=== PATIENT | male | born 1955 | race Caucasian/White ===

== ENCOUNTER → 2020-01-07 08:38 | Outpatient (BNVA) | payer BC, SELFPAY | PROVIDERS: Family Provider Family Medicine; PCP Family Medicine; Visit Provider Family Medicine | DX: J30.9 Allergic rhinitis, unspecified (principal); K21.9 Gastro-esophageal reflux disease without esophagitis; R53.83 Other fatigue; I10 Essential (primary) hypertension; J30.89 Other allergic rhinitis; G47.10 Hypersomnia, unspecified | CPT/HCPCS: 84443 ==

== ENCOUNTER 2020-01-21 08:13 | Outpatient (CLI) | payer BC, SELFPAY ==
[2020-01-21 09:20] LABS: Alanine Aminotransferase 16 U/L (0-41); Albumin Level 3.6 g/dL (3.5-5.2); Alkaline Phosphatase 99 IU/L (40-130); Anion Gap 11.2 (5-19); Aspartate Amino Transferase 19 U/L (0-40); Basophils % 0.6 %; Blood Urea Nitrogen 13 mg/dL (8-23); Calcium 9.1 mg/dL (8.5-10.5); Carbon Dioxide 26 mmol/L (22-29); Chloride 100 mmol/L (98-107); Eosinophils # 0.2 10^3/uL (0.0-0.8); Eosinophils % 3.8 %; Globulin 7.4 g/dL (1.3-4.6); Glomerular Filtration Rate 85.5 mL/min (90-130); Glucose 108 mg/dL (65-115); Hematocrit 37.9 % (42.0-52.0); Hemoglobin 12.1 g/dL (11.7-16.6); Lymphocytes # 2.3 10^3/uL (0.8-4.8); Lymphocytes % 43.9 %; Mean Corpuscular HGB Conc 31.9 g/dL (30.0-36.0); Mean Corpuscular Hemoglobin 32.9 pg (28.0-34.0); Mean Platelet Volume 9.8 fL (7.4-10.4); Monocytes # 0.4 10^3/uL (0.2-0.9); Monocytes % 7.4 %; Neutrophils # 2.3 10^3/uL (1.8-7.7); Neutrophils % 43.7 %; Nucleated Red Blood Cells % 0 %; Platelet Count 253 10^3/cmm (130-400); Potassium 4.2 mmol/L (3.5-5.1); Red Blood Count 3.68 10^6/uL (4.1-5.3); Red Cell Distribution Width 13.2 % (12.1-15.1); Sodium 133 mmol/L (136-145); Total Bilirubin 0.5 mg/dL (0.15-1.2); White Blood Count 5.3 10^3/uL (4.0-10.0)
[2020-01-21 10:02] LABS: Immunoglobulin IGA < 50 mg/dL (70-400); Immunoglobulin IGG 5476 mg/dL (700-1600)
[2020-01-21 10:03] LABS: Immunoglobulin IGM < 25 mg/dL (40-230)
[2020-01-22 07:11] LABS: PROTEIN, TOTAL 10.5 g/dL (6.1-8.1)
[2020-01-22 14:51] LABS: ABNORMAL PROTEIN BAND 1 4.4 g/dL (NONE DETECTED); ALBUMIN 3.9 g/dL (3.8-4.8); ALPHA 1 GLOBULIN 0.3 g/dL (0.2-0.3); ALPHA 2 GLOBULIN 0.8 g/dL (0.5-0.9); BETA 1 GLOBULIN 0.4 g/dL (0.4-0.6); BETA 2 GLOBULIN 0.4 g/dL (0.2-0.5); GAMMA GLOBULIN 4.6 g/dL (0.8-1.7)
[2020-01-22 15:46] LABS: KAPPA LIGHT CHAIN, FREE, SERUM 316.4 mg/L (3.3-19.4); KAPPA/LAMBDA LIGHT CHAINS FREE 95.88 (0.26-1.65); LAMBDA LIGHT CHAIN, FREE, SERU 3.3 mg/L (5.7-26.3)
== END 2020-01-21 08:14 | disposition home or self-care (01) ==
LOC: ONCMED 08:15
PROVIDERS: Family Provider Family Medicine; PCP Family Medicine; Visit Provider Internal Medicine Medical Oncology
DX: C90.00 Multiple myeloma not having achieved remission (principal)
CPT/HCPCS: 80053; 82784; 83883; 84155; 84165; 85025

== ENCOUNTER 2020-02-06 10:04 | Day surgery (SDC) | payer BC, SELFPAY ==
[2020-02-05 09:58] VITALS: BMI 30.4
[2020-02-06 10:33] VITALS: BP 130/89; PULSE 90; RESP 18; TEMP 36.1; O2SAT 98
[2020-02-06] MEDS: sodium chloride 0.9% 1,000 ML 30 ML (10:51)
[2020-02-06 10:59] LABS: Hematocrit 37.4 % (42.0-52.0); Hemoglobin 12.3 g/dL (11.7-16.6); Mean Corpuscular HGB Conc 32.9 g/dL (30.0-36.0); Mean Corpuscular Hemoglobin 32.5 pg (28.0-34.0); Mean Corpuscular Volume 98.9 fL (80-94); Mean Platelet Volume 9.4 fL (7.4-10.4); Platelet Count 242 10^3/cmm (130-400); Red Blood Count 3.78 10^6/uL (4.1-5.3); Red Cell Distribution Width 13.2 % (12.1-15.1); White Blood Count 8.3 10^3/uL (4.0-10.0)
--- NOTE | 2020-02-06 11:08 | ANES.PREANE2 ---
Pre-Anesthetic Assessment Pre-Anesthetic Assessment: Height/Weight: Height 1.83 m Weight 101.605 kg Temp Pulse Resp BP Pulse Ox 97.0 F L 90 18 130/89 98 02/06/20 10:33 02/06/20 10:33 02/06/20 10:33 02/06/20 10:33 02/06/20 10:33 Preop Diagnosis: myeloma Proposed Procedure: Operation Date: 02/06/20 11:30 Proposed Procedures p Bone Marrow Biospy With Aspiration(Not Applicable) - Lan Chapa MD Was Beta Darin taken within 24 hours: N/A Last intake: Intake Last Liquid Date 02/06/20 Last Liquid Time 09:00 Social: Social History: No alcohol and No tobacco (quit a few year ago) Exam: Pre-Anes Outpt Exam: alert, oriented x 3, clear to auscultation bilaterally and regular rate & rhythm Airway: Submandibular: WNL Cervical ROM: WNL MP: 2 Dentition: Full Pulmonary: Pulmonary: None reported CV/HEM: CV/HEM: Afib and HTN : : None reported Hepatic: Hepatic: None reported GI: GI: GERD Metabolic: Metabolic: None reported Musc/skel: Musc/skel: None reported Neuropsych: Neuropsych: None reported Anesthetic Plan: ASA status: 3 Risk of > 500 ml blood loss (7ml/kg in children): No PFSH Anesthesia PFSH: Medical History (Updated 01/07/20 @ 09:08 by Debbie King DO) Essential hypertension Mild acid reflux Smoldering myeloma Surgical History (Updated 01/07/20 @ 08:15 by Debbie King DO) H/O hernia repair History of detached retina repair Social History Smoking and tobacco status: former smoker Alcohol intake: current Alcohol intake frequency: holidays/special occasions only Data Anesthesia CBC & Chem 7: 02/06/20 10:45 Other Labs: Laboratory Results - last 48 hr 02/06/20 10:45 WBC 8.3 RBC 3.78 L Hgb 12.3 Hct 37.4 L MCV 98.9 H MCH 32.5 MCHC 32.9 RDW 13.2 Plt Count 242 MPV 9.4 Cardiac Studies: No Data to Display
[2020-02-06 11:23] LABS: Absolute Eosinophils 0.1 10^3/cmm (0.0-0.7); Absolute Segmented Neutrophil 4.3 10/cmm (1.6-7.1); Eosinophils 2 %; Lymphocytes 45 %; Platelet Estimate Normal (Normal); Segmented Neutrophils 53 %; Total Cells Counted 100 (0-100)
[2020-02-06 12:22] VITALS: BP 93/65; PULSE 66; RESP 16; TEMP 36.4; O2SAT 98
--- NOTE | 2020-02-06 12:22 | PM.BMB ---
Bone Marrow Biopsy Bone Marrow Biopsy: I was consulted by [] office regarding bone marrow biopsy on home nicole Lugo[]. Briefly, the patient is a 64[] year old [M] with [ myeloma]. In the Outpatient Services Department, with nursing staff and laboratory technologists in attendance, the procedure was discussed with the patient. Appropriate consent form had been signed. Appropriate alternatives, benefits and risks of procedure were discussed with the patient and he was pre-operatively assessed with a history and physical and cleared for the biopsy procedure. The patient did request IV sedation and that was provided by the Anesthesia Department. under aseptic condition rt post iliac was cleaned and prepd about 15 cc of bone marrow aspirate and core biopsy obtained . specimen was sent for routine histopath and myeloma panel and cytogenetics , post procedure instructions were given to the nursing Thank you for allowing me to participate in this patient's care and diagnosis. 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
--- NOTE | 2020-02-06 12:25 | ANE.PACU2 ---
 Inpatient post-anesthesia follow up: Airway intact: Yes Vital signs: Temperature 97.0 F Pulse Rate 90 Respiratory Rate 18 Blood Pressure 130/89 Pulse Oximetry 98 Oxygen Delivery Me thod Room Air Oxygen Flow Rate Fraction of Inspir ed Oxygen Hydration adequate: Yes Nausea and vomiting: No Mental status: Baseline
[2020-02-06 12:31] VITALS: BP 114/75; PULSE 65; RESP 18; O2SAT 98
[2020-02-12 10:24] LABS: Miscellaneous Test See Scanned Lab Rpt
[2020-02-18 09:35] LABS: Clinical Indication See Report; Specimen Type See Report
[2020-02-24 10:04] LABS: Miscellaneous Test See Scanned Lab Rpt
== END 2020-02-06 12:58 | disposition home or self-care (01) ==
PROVIDERS: Family Provider Family Medicine; PCP Family Medicine; Visit Provider Internal Medicine Hematology & Oncology
PROC: 07DT3ZX Extraction of Bone Marrow, Percutaneous Approach, Diagnostic (ICD-10-PCS; CPT 38222; principal; 2020-02-06 11:30)
DX: D47.2 Monoclonal gammopathy (principal); C90.00 Multiple myeloma not having achieved remission; I10 Essential (primary) hypertension; I48.91 Unspecified atrial fibrillation; Z87.891 Personal history of nicotine dependence
CPT/HCPCS: 12345; 36415; 38222; 85007; 85027; 88184; 88185; 88237; 88264; 88305; 88374; J2704; J7030

== ENCOUNTER 2020-02-06 11:29 | Outpatient (REF) | payer BC, SELFPAY ==
[2020-02-07 13:51] LABS: PROTEIN, TOTAL, 24 HR UR 150 mg/24 h (<150); PROTEIN/CREATININE RATIO 100 mg/g creat (< OR = 114)
[2020-02-10 09:26] LABS: ALBUMIN 100 %; ALPHA-1-GLOBULINS 0 %; ALPHA-2-GLOBULINS 0 %; BETA GLOBULINS 0 %; GAMMA GLOBULINS 0 %
== END 2020-02-06 11:30 | disposition home or self-care (01) ==
LOC: LAB 11:29
PROVIDERS: Family Provider Family Medicine; PCP Family Medicine; Visit Provider Internal Medicine Medical Oncology
DX: R53.83 Other fatigue (principal)
CPT/HCPCS: 84156; 84166

== ENCOUNTER 2020-04-20 08:21 | Outpatient (CLI) | payer BC, SELFPAY ==
[2020-04-20 08:59] LABS: Basophils # 0.1 10^3/uL (0.0-0.1); Basophils % 0.8 %; Eosinophils # 0.2 10^3/uL (0.0-0.8); Eosinophils % 3.4 %; Lymphocytes # 2.7 10^3/uL (0.8-4.8); Lymphocytes % 43.6 %; Mean Corpuscular HGB Conc 32.4 g/dL (30.0-36.0); Mean Corpuscular Hemoglobin 33.3 pg (28.0-34.0); Mean Corpuscular Volume 102.8 fL (80-94); Mean Platelet Volume 9.5 fL (7.4-10.4); Monocytes # 0.5 10^3/uL (0.2-0.9); Monocytes % 7.6 %; Neutrophils # 2.7 10^3/uL (1.8-7.7); Nucleated Red Blood Cells % 0 %; Platelet Count 252 10^3/cmm (130-400); Red Cell Distribution Width 13.2 % (12.1-15.1); White Blood Count 6.2 10^3/uL (4.0-10.0)
[2020-04-20 10:29] LABS: Alanine Aminotransferase 16 U/L (0-41); Albumin Level 3.4 g/dL (3.5-5.2); Alkaline Phosphatase 102 IU/L (40-130); Aspartate Amino Transferase 22 U/L (0-40); Blood Urea Nitrogen 16 mg/dL (8-23); Calcium 8.6 mg/dL (8.5-10.5); Carbon Dioxide 22 mmol/L (22-29); Chloride 103 mmol/L (98-107); Globulin 6.9 g/dL (1.3-4.6); Glomerular Filtration Rate 85.5 mL/min (90-130); Glucose 100 mg/dL (65-115); Osmolality Calculated 270 mOsm/kg (285-295); Sodium 132 mmol/L (136-145); Total Bilirubin 0.5 mg/dL (0.15-1.2); Total Protein 10.3 g/dL (6.6-8.7)
[2020-04-20 10:51] LABS: Immunoglobulin IGA < 50 mg/dL (70-400); Immunoglobulin IGG 5682 mg/dL (700-1600); Immunoglobulin IGM < 25 mg/dL (40-230)
[2020-04-21 08:22] LABS: PROTEIN, TOTAL 11.2 g/dL (6.1-8.1)
[2020-04-21 13:31] LABS: KAPPA LIGHT CHAIN, FREE, SERUM 411.8 mg/L (3.3-19.4); KAPPA/LAMBDA LIGHT CHAINS FREE 117.66 (0.26-1.65); LAMBDA LIGHT CHAIN, FREE, SERU 3.5 mg/L (5.7-26.3)
[2020-04-21 14:50] LABS: ABNORMAL PROTEIN BAND 1 4.8 g/dL (NONE DETECTED); ALBUMIN 4.3 g/dL (3.8-4.8); ALPHA 1 GLOBULIN 0.4 g/dL (0.2-0.3); ALPHA 2 GLOBULIN 0.9 g/dL (0.5-0.9); BETA 1 GLOBULIN 0.4 g/dL (0.4-0.6); BETA 2 GLOBULIN 0.3 g/dL (0.2-0.5); GAMMA GLOBULIN 4.9 g/dL (0.8-1.7)
[2020-04-21 16:47] LABS: CREATININE, 24 HOUR URINE 1.38 g/24 h (0.50-2.15); PROTEIN, TOTAL, 24 HR UR 120 mg/24 h (<150); Protein/Creatinine Ratio 0.087 (< OR = 0.114); Protein/Creatinine Ratio 87 mg/g creat (< OR = 114)
[2020-04-22 15:10] LABS: ALPHA-1-GLOBULINS 0 %; ALPHA-2-GLOBULINS 0 %; BETA GLOBULINS 0 %; GAMMA GLOBULINS 0 %
[2020-06-05 13:37] LABS: COLLECTION DURATION 24
[2020-06-08 13:54] LABS: URINE VOLUME 3000
== END 2020-04-20 08:22 | disposition home or self-care (01) ==
LOC: ONCMED 08:23
PROVIDERS: Family Provider Family Medicine; PCP Family Medicine; Visit Provider Internal Medicine Medical Oncology
DX: C90.00 Multiple myeloma not having achieved remission (principal); D47.2 Monoclonal gammopathy
CPT/HCPCS: 80053; 82040; 82784; 83883; 84155; 84165; 85025

== ENCOUNTER 2020-04-27 08:46 | Outpatient (CLI) | payer BC, SELFPAY ==
--- NOTE | 2020-05-01 07:39 | ONC FU_ITS ---
Dr. Vides Patient Follow-Up Note Patient: Chris Lugo Unit #: [id number]: 1955 Dicatated By: Chris Vides M.D.Date of Visit:Apr 27, 2020 Onc Med Follow-up/Prog Note Chief Complaint: Smoldering myeloma. History of Present Illness: This is a 64 year-old man with IgG kappa monoclonal gammopathy, initially discovered on protein electrophoresis in December 2014. His evaluation was consistent with smoldering myeloma. On routine laboratory analysis in December 2014 he was noted to have significant protein albumin dissociation with an elevated total protein level at 9.9. His albumin was normal. He had no hypercalcemia, no anemia, no renal disease. Serum protein electrophoresis revealed 3.23 g of IgG kappa monoclonal protein. [place] lambda ratio was elevated at 18.04. The patient was first seen by Dr. Gomez on 01/02/2015. His further studies showed 3.19 g/dL of IgG kappa monoclonal protein and free light chain ratio 14.4. His IgG was 5040 with decreased IgM and IgA. Random urine was negative for monoclonal protein. ESR 21, beta 2 microglobulin not elevated at 2.5. Bone marrow aspiration/biopsy on 01/14/2015 showed 6% plasma cells, with normal cytogenetics and normal FISH panel for multiple myeloma. Imaging showed negative skeletal survey. Lumbar MRI was negative for plasmacytoma. PET/CT on 05/02/2015 was negative exam, although there was incidental inflamed diverticulum and sigmoid colon. Clinically the presumed diverticulitis was asymptomatic. Overall, his evaluation was felt to be consistent with asymptomatic, smoldering myeloma. Observation/expectant management was recommended. His medical history is otherwise significant for hypertension and for some chronic anxiety. He does have a history of smoking 1/2 pack of cigarettes daily. INTERIM HISTORY: As of this follow-up visit on 01/24/2017 his protein electrophoresis had shown just slight increase in his M protein, to 3.48 g/dL compared to 3.19 g/dL in December 2014. His urine protein electrophoresis at that time was normal, and his skeletal survey showed no lytic bone involvement. He had no symptomatic evidence of myeloma, and he continued observation/expectant management. As of 04/30/2018 his M protein had increased to 3.75 g/d. By April of 2019 it had increased on slightly, to 4.0 g/dL. His hemoglobin at that point was borderline low at 12.2 g. His renal function and calcium remained normal, and he continued on observation/expectant management. Repeat bone marrow aspiration/biopsy on 02/06/2020 showed approximately 50-70% involvement by plasma cell neoplasm. Staging PET/CT on 03/28/2020 showed no evidence of active malignancy. He is seen for a scheduled visit. He has been feeling good generally. He does have some fatigue, but he continues to work full-time and his ECOG score is 0. His appetite is good and his weight is stable. He has no fever or night sweats. He has some allery related symptoms, including sneezing and cough. He has no shortness of breath or chest pain. He has no GI or complaints. He has some arthritis pain in his neck, which he has had for years. He has no other joint or bone pain. He sometimes has numbness in his left hand. He has no other focal neurologic symptoms. Medications: Aspirin 1 (81 mg) Tablet Oral daily, Cholecalciferol 1 Tablet (of 50 mcg) Oral daily, Enalapril Maleate 1 Tablet (of 10 mg) Oral daily, Flonase 2 spray(s) (of 50 mcg/act) Suspension Nasal daily, Omeprazole 1 Capsule (of 20 mg) Capsule Delayed Release Oral daily, Opcon-A 1 (0.027-0.315 %) Solution Ophthalmic daily, Refresh Tears 2 drop(s) Solution Ophthalmic t.i.d. PRN, Xyzal 1 Tablet (of 5 mg) Oral daily Allergies: No Known Allergies. Review of Systems: Constitutional - He generally feels good. He does have a significant amount of fatigue, but he continues to work full-time. His appetite is good and weight is stable. No fever, night sweats, or hot flashes. ECOG score is 0, ENMT - He has seasonal allergies. He is having persistent congestion and sneezing. No mouth sores. No sore throat or difficulty swallowing, Hematologic/Lymphatic - No abnormal bruising or bleeding, Respiratory - No shortness of breath. No pleuritic pain or hemoptysis, Cardiovascular - No angina pain. No palpitations, Gastrointestinal - No nausea or vomiting. No heartburn or acid reflux. No diarrhea. He has occasional mild constipation. No blood in the stool or black stools, Genitourinary (M) - No dysuria or hematuria. No urinary frequency. No urgency or incontinence, Musculoskeletal - He has some arthritis pain in his neck, which has been going on for years. He has no other joint or bone pain, Integumentary - No skin complications, Neurologic - No headache or dizziness. He has some occasional numbness in his left hand. No tingling. No other focal neurologic symptoms, Psychiatric - No anxiety or depression. No insomnia. Vital Signs: Performed on Apr 27, 2020 09:11 Height - 71.00 in Weight - 218.0 lbs (LOW) BSA - 2.19 sq.m BMI - 30.41 (HIGH) Temperature - 97.5 F (LOW) Pulse - 74 /min Respiration - 22 /min BP - 150/85 mm(hg) (HIGH) O2 Sat - 96 % Pain - 0 Physical Examination: Constitutional - He looks good generally, Eyes - Sclerae nonicteric. Conjunctivae clear, ENMT - No lesions noted in the oral cavity, Hematologic/Lymphatic - No cervical, clavicular, or axillary adenopathy, Respiratory - Lungs are clear with good air movement bilaterally, Cardiovascular - Heart rhythm is regular. There is a II/ systolic murmur at the base. There is no gallop or rub noted, Abdomen - Soft. Liver and spleen are not enlarged. There is no abdominal mass or ascites noted and there is no inguinal adenopathy, Extremities - No edema. Posterior tibial pulses are palpable bilaterally, Neurologic - No focal neurologic deficits noted. Lab/Imaging: Test performed on Apr 20, 2020 08:35 Sodium 132 mmol/L Potassium 4.0 mmol/L Chloride 103 mmol/L CO2 22 mmol/L Anion Gap 11.0 BUN 16 mg/dL Creatinine 0.9 mg/dL Cr Clearance (Est) 119.7900 mL/min eGFR 85.5 mL/min Glucose 100 mg/dL Calcium 8.6 mg/dL Protein, Total 10.3 g/dL Albumin 3.4 g/dL Globulin 6.9 g/dL Bilirubin, Total 0.5 mg/dL ALT (SGPT) 16 U/L AST (SGOT) 22 U/L Alkaline Phosphatase 102 IU/L WBC 6.2 10 3/uL RBC 3.60 10 6/uL HGB 12.0 g/dL HCT 37.0 % MCV 102.8 fL MCH 33.3 pg MCHC 32.4 g/dL RDW 13.2 % Platelet Count 252 10 3/cmm MPV 9.5 fL Neutrophils 2.7 10 3/uL Lymphocytes 2.7 10 3/uL Monocytes 0.5 10 3/uL Eosinophils 0.2 10 3/uL Basophils 0.1 10 3/uL Neutrophil % 44.0 % Lymphocyte % 43.6 % Monocyte % 7.6 % Eosinophil % 3.4 % Basophils % 0.8 % IgA < 50 mg/dL IgG 5682 mg/dL IgM < 25 mg/dL Impression: 1. Patient with IgG kappa monoclonal gammopathy, first discovered in December of 2014, at which time the monoclonal protein quantitated at 3.19 g/dL. His evaluation was consistent with asymptomatic, smoldering myeloma. Observation/expectant management was recommended. 2. Thus far during follow-up there has been just a very gradual increase in his M protein, with no evidence of symptomatic myeloma. 3. He has suppression of his normal immunoglobulin levels. He has not been symptomatic with it. His other medical illnesses include: 4. Hypertension. 5. He has had some chronic anxiety. He has had a significantly elevated M protein. During followup it has continued to increase very gradually. He is borderline anemic. He has otherwise not been symptomatic with it. His repeat bone marrow aspiration/biopsy in January 2020 show 50-70% involvement with plasma cell neoplasm. Staging PET/CT in March showed no evidence of active malignancy. Overall, the clinical picture is consistent with smoldering myeloma. Plan: In the setting of asymptomatic myeloma, he will remain on observation/expectant management. I will see him again in 3 months. Signed By: Chris Vides M.D. <<Signature on File>>
== END 2020-04-27 08:47 | disposition home or self-care (01) ==
LOC: ONCMED 08:47
PROVIDERS: PCP Family Medicine; Visit Provider Internal Medicine Medical Oncology
DX: C90.00 Multiple myeloma not having achieved remission (principal); D47.2 Monoclonal gammopathy; F41.9 Anxiety disorder, unspecified; I10 Essential (primary) hypertension
CPT/HCPCS: 99214

== ENCOUNTER 2020-05-04 12:00 | Outpatient (CLI) | payer BC, SELFPAY | END 2020-05-04 12:01 | disposition home or self-care (01) | LOC: SLEEP 05-05 08:38 | PROVIDERS: PCP Family Medicine; Visit Provider Family Medicine | DX: G47.10 Hypersomnia, unspecified (principal) | CPT/HCPCS: G0399 ==

== ENCOUNTER 2020-07-28 08:53 | Outpatient (CLI) | payer BC, SELFPAY ==
[2020-07-28 09:18] LABS: Basophils % 0.8 %; Eosinophils # 0.1 10^3/uL (0.0-0.8); Eosinophils % 1.7 %; Hematocrit 35.7 % (42.0-52.0); Hemoglobin 11.2 g/dL (11.7-16.6); Lymphocytes # 2.4 10^3/uL (0.8-4.8); Lymphocytes % 46.8 %; Mean Corpuscular HGB Conc 31.4 g/dL (30.0-36.0); Mean Corpuscular Hemoglobin 32.4 pg (28.0-34.0); Mean Corpuscular Volume 103.2 fL (80-94); Mean Platelet Volume 9.1 fL (7.4-10.4); Monocytes # 0.3 10^3/uL (0.2-0.9); Monocytes % 6.6 %; Neutrophils # 2.26 10^3/uL (1.8-7.7); Neutrophils % 43.7 %; Nucleated Red Blood Cells % 0 %; Platelet Count 253 10^3/cmm (130-400); Red Blood Count 3.46 10^6/uL (4.1-5.3); Red Cell Distribution Width 13.6 % (12.1-15.1); White Blood Count 5.2 10^3/uL (4.0-10.0)
[2020-07-28 09:39] LABS: Alanine Aminotransferase 13 U/L (0-41); Albumin Level 3.7 g/dL (3.5-5.2); Alkaline Phosphatase 92 IU/L (40-130); Anion Gap 8.2 (5-19); Aspartate Amino Transferase 15 U/L (0-40); Blood Urea Nitrogen 14 mg/dL (8-23); Calcium 8.2 mg/dL (8.5-10.5); Carbon Dioxide 27 mmol/L (22-29); Chloride 103 mmol/L (98-107); Globulin 7.5 g/dL (1.3-4.6); Glomerular Filtration Rate 85.5 mL/min (90-130); Glucose 102 mg/dL (65-115); Osmolality Calculated 274 mOsm/kg (285-295); Potassium 4.2 mmol/L (3.5-5.1); Sodium 134 mmol/L (136-145); Total Bilirubin 0.5 mg/dL (0.15-1.2); Total Protein 11.2 g/dL (6.6-8.7)
[2020-07-29 13:26] LABS: KAPPA LIGHT CHAIN, FREE, SERUM 412.8 mg/L (3.3-19.4); KAPPA/LAMBDA LIGHT CHAINS FREE 125.09 (0.26-1.65); LAMBDA LIGHT CHAIN, FREE, SERU 3.3 mg/L (5.7-26.3)
== END 2020-07-28 08:54 | disposition home or self-care (01) ==
PROVIDERS: PCP Family Medicine; Visit Provider Internal Medicine Medical Oncology
DX: C90.00 Multiple myeloma not having achieved remission (principal); D47.2 Monoclonal gammopathy
CPT/HCPCS: 36415; 80053; 83883; 84155; 84165; 85025

== ENCOUNTER 2020-08-03 09:16 | Outpatient (CLI) | payer BC, SELFPAY ==
--- NOTE | 2020-08-07 16:38 | ONC FU_ITS ---
Dr. Vides Patient Follow-Up Note Patient: Chris Lugo Unit #: [id number]: 1955 Dicatated By: Chris Vides M.D.Date of Visit:Aug 03, 2020 Onc Med Follow-up/Prog Note Chief Complaint: Smoldering myeloma. History of Present Illness: This is a 64 year-old man with IgG kappa monoclonal gammopathy, initially discovered on protein electrophoresis in December 2014. His evaluation was consistent with smoldering myeloma. On routine laboratory analysis in December 2014 he was noted to have significant protein albumin dissociation with an elevated total protein level at 9.9. His albumin was normal. He had no hypercalcemia, no anemia, no renal disease. Serum protein electrophoresis revealed 3.23 g of IgG kappa monoclonal protein. [place] lambda ratio was elevated at 18.04. The patient was first seen by Dr. Gomez on 01/02/2015. His further studies showed 3.19 g/dL of IgG kappa monoclonal protein and free light chain ratio 14.4. His IgG was 5040 with decreased IgM and IgA. Random urine was negative for monoclonal protein. ESR 21, beta 2 microglobulin not elevated at 2.5. Bone marrow aspiration/biopsy on 01/14/2015 showed 6% plasma cells, with normal cytogenetics and normal FISH panel for multiple myeloma. Imaging showed negative skeletal survey. Lumbar MRI was negative for plasmacytoma. PET/CT on 05/02/2015 was negative exam, although there was incidental inflamed diverticulum and sigmoid colon. Clinically the presumed diverticulitis was asymptomatic. Overall, his evaluation was felt to be consistent with asymptomatic, smoldering myeloma. Observation/expectant management was recommended. His medical history is otherwise significant for hypertension and for some chronic anxiety. He does have a history of smoking 1/2 pack of cigarettes daily. INTERIM HISTORY: As of this follow-up visit on 01/24/2017 his protein electrophoresis had shown just slight increase in his M protein, to 3.48 g/dL compared to 3.19 g/dL in December 2014. His urine protein electrophoresis at that time was normal, and his skeletal survey showed no lytic bone involvement. He had no symptomatic evidence of myeloma, and he continued observation/expectant management. As of 04/30/2018 his M protein had increased to 3.75 g/d. By April of 2019 it had increased on slightly, to 4.0 g/dL. His hemoglobin at that point was borderline low at 12.2 g. His renal function and calcium remained normal, and he continued on observation/expectant management. Repeat bone marrow aspiration/biopsy on 02/06/2020 showed approximately 50-70% involvement by plasma cell neoplasm. Staging PET/CT on 03/28/2020 showed no evidence of active malignancy. He is seen for a scheduled visit. He has been feeling pretty good generally. He still has normal activity and is working full-time. ECOG score is 0. His appetite is good. His weight is down a few pounds. He had fever associated with a sinus infection last month, but that has resolved. He has had no night sweating. His sinus symptoms have improved, but he says it still feels like his right ear has water in it. He periodically has sore throat. He does not have cough and he does not complain of shortness of breath or chest pain. He has no GI or complaints. He has some pain in his neck and back, that is the same. He had headache with a sinus infection. He has no focal neurologic symptoms. Medications: Aspirin 1 (81 mg) Tablet Oral daily, Cholecalciferol 1 Tablet (of 50 mcg) Oral daily, Enalapril Maleate 1 Tablet (of 10 mg) Oral daily, Flonase 2 spray(s) (of 50 mcg/act) Suspension Nasal daily, Montelukast Sodium 1 Tablet (of 10 mg) Oral daily, Omeprazole 1 Capsule (of 20 mg) Capsule Delayed Release Oral daily, Opcon-A 1 (0.027-0.315 %) Solution Ophthalmic daily, Refresh Tears 2 drop(s) Solution Ophthalmic t.i.d. PRN, Xyzal 1 Tablet (of 5 mg) Oral daily Allergies: No Known Allergies. Review of Systems: Constitutional - His energy is the same. He has normal activity. His appetite is good. His weight is down a few pounds. He had fever with his sinus infection last month, but none since then. He has no night sweating. ECOG score 0, ENMT - He had sinus infection last month. His right ear feels like there is water in it. He has not had sore mouth, but he had abnormal exam on recent dental visit. He sometimes has sore throat. No difficulty swallowing, Hematologic/Lymphatic - No abnormal bruising or bleeding, Respiratory - No shortness of breath. No cough. No pleuritic pain or hemoptysis, Cardiovascular - No angina pain. No palpitations, Gastrointestinal - No nausea or vomiting. No heartburn or acid reflux. No diarrhea or constipation. No blood in the stool or black stools, Genitourinary (M) - No dysuria or hematuria. No urinary frequency. No urgency or incontinence, Musculoskeletal - He has some neck pain, which is chronic. No other joint or bone pain, Integumentary - No skin rash, Neurologic - He had sinus headache. No dizziness. No numbness or tingling. No other focal neurologic symptoms, Psychiatric - No anxiety or depression. No insomnia. Vital Signs: Performed on Aug 03, 2020 09:27 Height - 71.00 in Weight - 208.2 lbs (LOW) BSA - 2.15 sq.m BMI - 29.04 Temperature - 98.3 F (LOW) Pulse - 75 /min Respiration - 18 /min BP - 151/76 mm(hg) (HIGH) O2 Sat - 98 % Pain - 0 Physical Examination: Constitutional - He looks good generally, Eyes - Sclerae nonicteric. Conjunctivae clear, ENMT - There are no lesions noted in the oral cavity. The right TM looks normal, Hematologic/Lymphatic - No cervical, clavicular, or axillary adenopathy, Respiratory - Lungs are clear with good air movement bilaterally, Cardiovascular - Heart rhythm is regular. There is a II/ systolic murmur at the base. There is no gallop or rub noted, Abdomen - Soft. Liver and spleen are not enlarged. There is no abdominal mass or ascites noted and there is no inguinal adenopathy, Extremities - No edema, Neurologic - No focal neurologic deficits noted. Lab/Imaging: Test performed on Jul 28, 2020 09:04 Sodium 134 mmol/L Potassium 4.2 mmol/L Chloride 103 mmol/L CO2 27 mmol/L Anion Gap 8.2 BUN 14 mg/dL Creatinine 0.9 mg/dL Cr Clearance (Est) 119.0300 mL/min eGFR 85.5 mL/min Glucose 102 mg/dL Calcium 8.2 mg/dL Protein, Total 11.2 g/dL Albumin 3.7 g/dL Globulin 7.5 g/dL Bilirubin, Total 0.5 mg/dL ALT (SGPT) 13 U/L AST (SGOT) 15 U/L Alkaline Phosphatase 92 IU/L WBC 5.2 10 3/uL RBC 3.46 10 6/uL HGB 11.2 g/dL HCT 35.7 % MCV 103.2 fL MCH 32.4 pg MCHC 31.4 g/dL RDW 13.6 % Platelet Count 253 10 3/cmm MPV 9.1 fL Neutrophils 2.26 10 3/uL Lymphocytes 2.4 10 3/uL Monocytes 0.3 10 3/uL Eosinophils 0.1 10 3/uL Basophils 0.0 10 3/uL Neutrophil % 43.7 % Lymphocyte % 46.8 % Monocyte % 6.6 % Eosinophil % 1.7 % Basophils % 0.8 % NRBC % 0 % [place] Free Light Chains 412.8 mg/L Lambda Free Light Chains 3.3 mg/L [place]/Lambda Free Ratio 125.09 Impression: 1. Patient with IgG kappa monoclonal gammopathy, first discovered in December of 2014, at which time the monoclonal protein quantitated at 3.19 g/dL. His evaluation was consistent with asymptomatic, smoldering myeloma. Observation/expectant management was recommended. 2. Thus far during follow-up there has been just a very gradual increase in his M protein, with no evidence of symptomatic myeloma. 3. He has suppression of his normal immunoglobulin levels. He has not been symptomatic with it. His other medical illnesses include: 4. Hypertension. 5. He has had some chronic anxiety. He has had a significantly elevated M protein. During followup it has continued to increase very gradually. He is borderline anemic. He has otherwise not been symptomatic with it. His repeat bone marrow aspiration/biopsy in January 2020 show 50-70% involvement with plasma cell neoplasm. Staging PET/CT in March showed no evidence of active malignancy. Overall, the clinical picture has been consistent with smoldering myeloma. As yet he has not been overtly symptomatic, but he has now become mildly anemic. Plan: He will remain on observation/expectant management, but with any further decline in the hemoglobin/hematocrit levels, I will plan to start treatment. I will see him again in 3 months, or sooner as needed. Signed By: Chris Vides M.D. <<Signature on File>>
== END 2020-08-03 09:17 | disposition home or self-care (01) ==
LOC: ONCMED 09:18
PROVIDERS: PCP Family Medicine; Visit Provider Internal Medicine Medical Oncology
DX: C90.00 Multiple myeloma not having achieved remission (principal); D47.2 Monoclonal gammopathy; I10 Essential (primary) hypertension; F41.9 Anxiety disorder, unspecified; D64.9 Anemia, unspecified
CPT/HCPCS: G0463

== ENCOUNTER 2020-11-02 08:44 | Outpatient (CLI) | payer BC, SELFPAY ==
[2020-11-02 09:36] LABS: Basophils # 0.1 10^3/uL (0.0-0.1); Basophils % 0.9 %; Eosinophils # 0.3 10^3/uL (0.0-0.8); Eosinophils % 4.7 %; Hemoglobin 11.9 g/dL (11.7-16.6); Lymphocytes # 2.4 10^3/uL (0.8-4.8); Lymphocytes % 43.5 %; Mean Corpuscular HGB Conc 32.2 g/dL (30.0-36.0); Mean Corpuscular Hemoglobin 33.9 pg (28.0-34.0); Mean Corpuscular Volume 105.4 fL (80-94); Mean Platelet Volume 9.2 fL (7.4-10.4); Monocytes # 0.5 10^3/uL (0.2-0.9); Monocytes % 8.2 %; Neutrophils # 2.31 10^3/uL (1.8-7.7); Nucleated Red Blood Cells % 0 %; Platelet Count 225 10^3/cmm (130-400); Red Blood Count 3.51 10^6/uL (4.1-5.3); Red Cell Distribution Width 13.3 % (12.1-15.1); White Blood Count 5.5 10^3/uL (4.0-10.0)
--- NOTE | 2020-11-02 09:56 | XR_ITS ---
WS: [id number] XR bone survey* [id number] REASON FOR EXAM: MYELOMA FINDINGS: The skull is unremarkable. The cervical, thoracic, and lumbar spines demonstrate changes of degenerative spondylosis with disc s pace narrowing and anterior osteophytic spurring. No focal bone lesion or significant compression def ormity is noted. No significant abnormality of the pelvis is identified. The femurs and humeri are unremarkable. XR/XR bone survey* [id number] IMPRESSION: No lesions of multiple myeloma identified on the skeletal survey.
[2020-11-02 10:34] LABS: Erythrocyte Sedimentation Rate 41 mm/hr (0-10)
[2020-11-02 12:27] LABS: Alanine Aminotransferase 15 U/L (0-41); Albumin Level 3.3 g/dL (3.5-5.2); Alkaline Phosphatase 112 IU/L (40-130); Anion Gap 7.3 (5-19); Aspartate Amino Transferase 16 U/L (0-40); Blood Urea Nitrogen 16 mg/dL (8-23); Calcium 8.8 mg/dL (8.5-10.5); Carbon Dioxide 27 mmol/L (22-29); Chloride 104 mmol/L (98-107); Globulin 7.2 g/dL (1.3-4.6); Glomerular Filtration Rate 85.2 mL/min (90-130); Glucose 104 mg/dL (65-115); Immunoglobulin IGM 25 mg/dL (40-230); Lactate Dehydrogenase 156 U/L (135-225); Osmolality Calculated 279 mOsm/kg (285-295); Potassium 4.3 mmol/L (3.5-5.1); Sodium 134 mmol/L (136-145); Total Bilirubin 0.4 mg/dL (0.15-1.2); Total Protein 10.5 g/dL (6.6-8.7)
[2020-11-02 13:04] LABS: Immunoglobulin IGA < 50 mg/dL (70-400); Immunoglobulin IGG 5455 mg/dL (700-1600)
[2020-11-03 12:03] LABS: CREATININE, 24 HOUR URINE 0.16 g/24 h (0.50-2.15); PROTEIN, TOTAL, 24 HR UR 15 mg/24 h (<150); Protein/Creatinine Ratio 0.096 (< OR = 0.114); Protein/Creatinine Ratio 96 mg/g creat (< OR = 114)
[2020-11-03 15:03] LABS: PROTEIN, TOTAL 11.3 g/dL (6.1-8.1)
[2020-11-03 16:03] LABS: ABNORMAL PROTEIN BAND 1 5.1 g/dL (NONE DETECTED); ALBUMIN 4.2 g/dL (3.8-4.8); ALPHA 1 GLOBULIN 0.3 g/dL (0.2-0.3); ALPHA 2 GLOBULIN 0.8 g/dL (0.5-0.9); BETA 1 GLOBULIN 0.4 g/dL (0.4-0.6); BETA 2 GLOBULIN 0.3 g/dL (0.2-0.5); GAMMA GLOBULIN 5.2 g/dL (0.8-1.7)
[2020-11-04 11:13] LABS: KAPPA LIGHT CHAIN, FREE, SERUM 453.3 mg/L (3.3-19.4); KAPPA/LAMBDA LIGHT CHAINS FREE 137.36 (0.26-1.65); LAMBDA LIGHT CHAIN, FREE, SERU 3.3 mg/L (5.7-26.3)
[2020-11-04 17:17] LABS: ALBUMIN 100 %; ALPHA-1-GLOBULINS 0 %; ALPHA-2-GLOBULINS 0 %; BETA GLOBULINS 0 %; GAMMA GLOBULINS 0 %
== END 2020-11-02 08:45 | disposition home or self-care (01) ==
LOC: ONCMED 08:50
PROVIDERS: PCP Family Medicine; Visit Provider Internal Medicine Medical Oncology
DX: C90.00 Multiple myeloma not having achieved remission (principal); D47.2 Monoclonal gammopathy
CPT/HCPCS: 36415; 77075; 80053; 82784; 83615; 83883; 84155; 84165; 85025; 85651

== ENCOUNTER 2020-11-09 05:51 | Outpatient (CLI) | payer BC, SELFPAY ==
--- NOTE | 2020-11-12 07:31 | ONC FU_ITS ---
Dr. Vides Patient Follow-Up Note Patient: Chris Lugo Unit #: [id number]: 1955 Dicatated By: Chris Vides M.D.Date of Visit:Nov 09, 2020 Onc Med Follow-up/Prog Note Chief Complaint: Smoldering myeloma. History of Present Illness: This is a 65 year-old man with IgG kappa monoclonal gammopathy, initially discovered on protein electrophoresis in December 2014. His evaluation has been consistent with smoldering myeloma. On routine laboratory analysis in December 2014 he was noted to have significant protein albumin dissociation with an elevated total protein level at 9.9. His albumin was normal. He had no hypercalcemia, no anemia, no renal disease. Serum protein electrophoresis revealed 3.23 g of IgG kappa monoclonal protein. [place] lambda ratio was elevated at 18.04. The patient was first seen by Dr. Gomez on 01/02/2015. His further studies showed 3.19 g/dL of IgG kappa monoclonal protein and free light chain ratio 14.4. His IgG was 5040 with decreased IgM and IgA. Random urine was negative for monoclonal protein. ESR 21, beta 2 microglobulin not elevated at 2.5. Bone marrow aspiration/biopsy on 01/14/2015 showed 6% plasma cells, with normal cytogenetics and normal FISH panel for multiple myeloma. Imaging showed negative skeletal survey. Lumbar MRI was negative for plasmacytoma. PET/CT on 05/02/2015 was negative exam, although there was incidental inflamed diverticulum and sigmoid colon. Clinically the presumed diverticulitis was asymptomatic. Overall, his evaluation was felt to be consistent with asymptomatic, smoldering myeloma. Observation/expectant management was recommended. His medical history is otherwise significant for hypertension and for some chronic anxiety. He does have a history of smoking 1/2 pack of cigarettes daily. INTERIM HISTORY: As of this follow-up visit on 01/24/2017 his protein electrophoresis had shown just slight increase in his M protein, to 3.48 g/dL compared to 3.19 g/dL in December 2014. His urine protein electrophoresis at that time was normal, and his skeletal survey showed no lytic bone involvement. He had no symptomatic evidence of myeloma, and he continued observation/expectant management. As of 04/30/2018 his M protein had increased to 3.75 g/d. By April of 2019 it had increased on slightly, to 4.0 g/dL. His hemoglobin at that point was borderline low at 12.2 g. His renal function and calcium remained normal, and he continued on observation/expectant management. Repeat bone marrow aspiration/biopsy on 02/06/2020 showed approximately 50-70% involvement by plasma cell neoplasm. Staging PET/CT on 03/28/2020 showed no evidence of active malignancy. At that point his clinical status remained stable and as he still met no criteria for initiating treatment, he continued on observation/expectant management for the myeloma. He is seen for a scheduled visit. He has been feeling good generally. He says his energy has been pretty level. He does have some fatigue, but his activity is normal. Appetite is good. He has no fever or night sweats. He has been seeing a dentist, and he has had to have some bone shards removed, but x-rays apparently have not shown any evidence of lytic bone disease. He reports having some stiffness in his neck, but he has no significant joint or bone pain. He has no other significant complaints at this time. Medications: Aspirin 1 (81 mg) Tablet Oral daily, Cholecalciferol 1 Tablet (of 50 mcg) Oral daily, Enalapril Maleate 1 Tablet (of 10 mg) Oral daily, Flonase 2 spray(s) (of 50 mcg/act) Suspension Nasal daily, Metamucil Powder Oral daily, Montelukast Sodium 1 Tablet (of 10 mg) Oral daily, Omeprazole 1 Capsule (of 20 mg) Capsule Delayed Release Oral daily, Opcon-A 1 (0.027-0.315 %) Solution Ophthalmic daily, Refresh Tears 2 drop(s) Solution Ophthalmic t.i.d. PRN, Xyzal 1 Tablet (of 5 mg) Oral daily Allergies: No Known Allergies. Review of Systems: Constitutional - He says his energy has been pretty level. He does have some fatigue, but he still has normal activity. Appetite is good and weight is stable. No fever, night sweats, or hot flashes. ECOG score is 0, ENMT - He has occasional sinus drainage. He has been seeing a dentist and has had to have bone chards removed. No sore throat or difficulty swallowing, Hematologic/Lymphatic - No abnormal bruising or bleeding, Respiratory - No shortness of breath. No cough. No pleuritic pain or hemoptysis, Cardiovascular - No angina pain. No palpitations, Gastrointestinal - No nausea or vomiting. No heartburn or acid reflux. He was having constipation, but it has been managed very well with Metamucil. No blood in the stool or black stools, Genitourinary (M) - No dysuria or hematuria. No urinary frequency. No urgency or incontinence, Musculoskeletal - He has some stiffness in his neck. He has no other joint or bone pain, Integumentary - No skin rash, Neurologic - No headache or dizziness. No numbness or tingling. No other focal neurologic symptoms, Psychiatric - No anxiety or depression. No insomnia. Vital Signs: Performed on Nov 09, 2020 08:45 Height - 71.00 in Weight - 211.4 lbs (HIGH) BSA - 2.16 sq.m BMI - 29.48 Temperature - 98.0 F (LOW) Pulse - 70 /min Respiration - 14 /min BP - 153/74 mm(hg) (HIGH) O2 Sat - 99 % Pain - 0 Physical Examination: Constitutional - He looks good generally, Eyes - Sclerae nonicteric. Conjunctivae clear, ENMT - There are no lesions noted in the oral cavity, Hematologic/Lymphatic - No cervical, clavicular, or axillary adenopathy, Respiratory - Lungs are clear with good air movement bilaterally, Cardiovascular - Heart rhythm is regular. There is a II/ systolic murmur. There is no gallop or rub noted, Abdomen - Soft. Liver and spleen are not enlarged. There is no abdominal mass or ascites noted and there is no inguinal adenopathy, Extremities - No edema, Neurologic - No focal neurologic deficits noted. Lab/Imaging: Test performed on Nov 02, 2020 09:11 LDH (Total) 156 U/L Sodium 134 mmol/L Potassium 4.3 mmol/L Chloride 104 mmol/L CO2 27 mmol/L U Protein, 24hr 15 mg/24 h Anion Gap 7.3 U Protein/Creat Ratio 0.096 BUN 16 mg/dL U Albumin % 100 % Creatinine 0.9 mg/dL Cr Clearance (Est) 112.2200 mL/min eGFR 85.2 mL/min Glucose 104 mg/dL UPE Interpretation SEE NOTE Agarose electrophoresis of urine reveals albumin. No abnormal protein is observed. THIS TEST WAS PERFORMED AT: [facility] [id number] [place] [address] JEREMY CORTEZ DO,MPH Osmolality - Calculated 279 mOsm/kg Calcium 8.8 mg/dL Protein, Total 10.5 g/dL Albumin 3.3 g/dL U Creatinine, 24 hr 0.16 g/24 h Globulin 7.2 g/dL Bilirubin, Total 0.4 mg/dL ALT (SGPT) 15 U/L AST (SGOT) 16 U/L Alkaline Phosphatase 112 IU/L ESR (Sed Rate) 41 mm/hr WBC 5.5 10 3/uL RBC 3.51 10 6/uL HGB 11.9 g/dL HCT 37.0 % MCV 105.4 fL MCH 33.9 pg MCHC 32.2 g/dL RDW 13.3 % Platelet Count 225 10 3/cmm MPV 9.2 fL Neutrophils 2.31 10 3/uL Lymphocytes 2.4 10 3/uL Monocytes 0.5 10 3/uL Eosinophils 0.3 10 3/uL Basophils 0.1 10 3/uL Neutrophil % 42.0 % Lymphocyte % 43.5 % Monocyte % 8.2 % Eosinophil % 4.7 % Basophils % 0.9 % NRBC % 0 % IgA < 50 mg/dL IgG 5455 mg/dL IgM 25 mg/dL [place] Free Light Chains 453.3 mg/L Lambda Free Light Chains 3.3 mg/L [place]/Lambda Free Ratio 137.36 U [id number] 0 % U Qjrni-2-lcbmctbo 0 % U Beta Globulin 0 % U Gamma Globulin 0 % Impression: 1. Patient with IgG kappa monoclonal gammopathy, first discovered in December of 2014, at which time the monoclonal protein quantitated at 3.19 g/dL. His evaluation was consistent with asymptomatic, smoldering myeloma. Observation/expectant management was recommended. 2. Thus far during follow-up there has been just a very gradual increase in his M protein, with no evidence of symptomatic myeloma. 3. He has suppression of his normal immunoglobulin levels. He has not been symptomatic with it. His other medical illnesses include: 4. Hypertension. 5. He has had some chronic anxiety. He has had a significantly elevated M protein. During followup it has continued to increase very gradually. He is borderline anemic. He has otherwise not been symptomatic with it. His repeat bone marrow aspiration/biopsy in January 2020 show 50-70% involvement with plasma cell neoplasm. Staging PET/CT in March 2020 showed no evidence of active malignancy. Overall, the clinical picture has been consistent with smoldering myeloma. During follow-up he has become borderline anemic, but he has not been symptomatic and he has yet he still has not met any criteria for initiating treatment. Plan: He remains on observation/expectant management. I will recheck his lab studies in 3 months. I will see him for follow-up visit in 6 months, or sooner as needed. Signed By: Chris Vides M.D. <<Signature on File>>
== END 2020-11-09 05:52 | disposition home or self-care (01) ==
LOC: ONCMED 05:53
PROVIDERS: PCP Family Medicine; Visit Provider Internal Medicine Medical Oncology
DX: C90.00 Multiple myeloma not having achieved remission (principal); I10 Essential (primary) hypertension; F41.9 Anxiety disorder, unspecified
CPT/HCPCS: G0463

== ENCOUNTER → 2020-12-28 08:25 | Outpatient (BNVA) | payer OTHER, SELFPAY | PROVIDERS: PCP Family Medicine; Visit Provider Family Medicine | DX: I10 Essential (primary) hypertension (principal); R35.1 Nocturia; K21.9 Gastro-esophageal reflux disease without esophagitis; Z68.29 Body mass index [BMI] 29.0-29.9, adult; F17.211 Nicotine dependence, cigarettes, in remission | CPT/HCPCS: 80061; 84153 ==

== ENCOUNTER 2021-02-09 09:23 | Outpatient (CLI) | payer OTHER, SELFPAY ==
[2021-02-09 10:14] LABS: Basophils % 0.8 %; Eosinophils # 0.1 10^3/uL (0.0-0.8); Eosinophils % 2.3 %; Hematocrit 33.5 % (42.0-52.0); Hemoglobin 10.8 g/dL (11.7-16.6); Lymphocytes # 2.3 10^3/uL (0.8-4.8); Lymphocytes % 45.3 %; Mean Corpuscular HGB Conc 32.2 g/dL (30.0-36.0); Mean Corpuscular Hemoglobin 33.9 pg (28.0-34.0); Mean Platelet Volume 9.5 fL (7.4-10.4); Monocytes # 0.4 10^3/uL (0.2-0.9); Monocytes % 7.9 %; Neutrophils # 2.21 10^3/uL (1.8-7.7); Neutrophils % 42.7 %; Nucleated Red Blood Cells % 0 %; Platelet Count 258 10^3/cmm (130-400); Red Blood Count 3.19 10^6/uL (4.1-5.3); Red Cell Distribution Width 13.6 % (12.1-15.1); White Blood Count 5.2 10^3/uL (4.0-10.0)
[2021-02-09 10:37] LABS: Alanine Aminotransferase 13 U/L (0-41); Albumin Level 3.1 g/dL (3.5-5.2); Alkaline Phosphatase 102 IU/L (40-130); Anion Gap 8.1 (5-19); Aspartate Amino Transferase 15 U/L (0-40); Blood Urea Nitrogen 15 mg/dL (8-23); Calcium 8.1 mg/dL (8.5-10.5); Carbon Dioxide 26 mmol/L (22-29); Chloride 104 mmol/L (98-107); Globulin 7.6 g/dL (1.3-4.6); Glomerular Filtration Rate 97.6 mL/min (90-130); Glucose 90 mg/dL (65-115); Osmolality Calculated 278 mOsm/kg (285-295); Potassium 4.1 mmol/L (3.5-5.1); Sodium 134 mmol/L (136-145); Total Bilirubin 0.3 mg/dL (0.15-1.2); Total Protein 10.7 g/dL (6.6-8.7)
[2021-02-09 10:53] LABS: Immunoglobulin IGA 8 mg/dL (70-400); Immunoglobulin IGG 5533 mg/dL (700-1600); Immunoglobulin IGM < 25 mg/dL (40-230)
[2021-02-10 08:38] LABS: PROTEIN, TOTAL 9.9 g/dL (6.1-8.1)
[2021-02-10 14:28] LABS: KAPPA LIGHT CHAIN, FREE, SERUM 586.4 mg/L (3.3-19.4); KAPPA/LAMBDA LIGHT CHAINS FREE 158.49 (0.26-1.65); LAMBDA LIGHT CHAIN, FREE, SERU 3.7 mg/L (5.7-26.3)
[2021-02-10 15:29] LABS: ABNORMAL PROTEIN BAND 1 4.5 g/dL (NONE DETECTED); ALBUMIN 3.7 g/dL (3.8-4.8); ALPHA 1 GLOBULIN 0.3 g/dL (0.2-0.3); ALPHA 2 GLOBULIN 0.8 g/dL (0.5-0.9); BETA 1 GLOBULIN 0.4 g/dL (0.4-0.6); BETA 2 GLOBULIN 0.2 g/dL (0.2-0.5); GAMMA GLOBULIN 4.6 g/dL (0.8-1.7)
== END 2021-02-09 09:24 | disposition home or self-care (01) ==
LOC: ONCMED 09:24
PROVIDERS: PCP Family Medicine; Visit Provider Internal Medicine Medical Oncology
DX: C90.00 Multiple myeloma not having achieved remission (principal); D47.2 Monoclonal gammopathy
CPT/HCPCS: 36415; 80053; 82784; 83883; 84155; 84165; 85025

== ENCOUNTER 2021-04-13 08:34 | Outpatient (CLI) | payer OTHER, SELFPAY ==
[2021-04-13 09:39] LABS: Basophils % 0.7 %; Eosinophils # 0.1 10^3/uL (0.0-0.8); Hematocrit 32.1 % (42.0-52.0); Hemoglobin 10.4 g/dL (11.7-16.6); Lymphocytes # 2.3 10^3/uL (0.8-4.8); Lymphocytes % 41.5 %; Mean Corpuscular HGB Conc 32.4 g/dL (30.0-36.0); Mean Corpuscular Hemoglobin 33.8 pg (28.0-34.0); Mean Corpuscular Volume 104.2 fL (80-94); Mean Platelet Volume 9.6 fL (7.4-10.4); Monocytes # 0.4 10^3/uL (0.2-0.9); Monocytes % 7.2 %; Neutrophils # 2.68 10^3/uL (1.8-7.7); Neutrophils % 48.2 %; Nucleated Red Blood Cells % 0 %; Platelet Count 213 10^3/cmm (130-400); Red Blood Count 3.08 10^6/uL (4.1-5.3); Red Cell Distribution Width 13.7 % (12.1-15.1); White Blood Count 5.6 10^3/uL (4.0-10.0)
[2021-04-13 09:59] LABS: Alanine Aminotransferase 14 U/L (0-41); Albumin Level 3.1 g/dL (3.5-5.2); Alkaline Phosphatase 96 IU/L (40-130); Anion Gap 7.2 (5-19); Aspartate Amino Transferase 18 U/L (0-40); Blood Urea Nitrogen 15 mg/dL (8-23); Calcium 7.9 mg/dL (8.5-10.5); Carbon Dioxide 25 mmol/L (22-29); Chloride 105 mmol/L (98-107); Globulin 7.3 g/dL (1.3-4.6); Glomerular Filtration Rate 85.2 mL/min (90-130); Glucose 83 mg/dL (65-115); Osmolality Calculated 276 mOsm/kg (285-295); Potassium 4.2 mmol/L (3.5-5.1); Sodium 133 mmol/L (136-145); Total Bilirubin 0.4 mg/dL (0.15-1.2); Total Protein 10.4 g/dL (6.6-8.7)
[2021-04-13 10:47] LABS: Erythrocyte Sedimentation Rate 56 mm/hr (0-10)
[2021-04-14 08:38] LABS: PROTEIN, TOTAL 9.9 g/dL (6.1-8.1)
[2021-04-14 12:03] LABS: ABNORMAL PROTEIN BAND 1 4.5 g/dL (NONE DETECTED); ALBUMIN 3.7 g/dL (3.8-4.8); ALPHA 1 GLOBULIN 0.3 g/dL (0.2-0.3); ALPHA 2 GLOBULIN 0.8 g/dL (0.5-0.9); BETA 1 GLOBULIN 0.3 g/dL (0.4-0.6); BETA 2 GLOBULIN 0.2 g/dL (0.2-0.5); GAMMA GLOBULIN 4.6 g/dL (0.8-1.7)
[2021-04-14 13:07] LABS: KAPPA LIGHT CHAIN, FREE, SERUM 596.6 mg/L (3.3-19.4); KAPPA/LAMBDA LIGHT CHAINS FREE 205.72 (0.26-1.65); LAMBDA LIGHT CHAIN, FREE, SERU 2.9 mg/L (5.7-26.3)
[2021-04-16 17:48] LABS: CARDIOLIPIN AB (IGA) <11 APL; CARDIOLIPIN AB (IGG) <14 GPL; CARDIOLIPIN AB (IGM) <12 MPL
== END 2021-04-13 08:35 | disposition home or self-care (01) ==
LOC: ONCMED 08:36
PROVIDERS: PCP Family Medicine; Visit Provider Internal Medicine Medical Oncology
DX: D47.2 Monoclonal gammopathy (principal)
CPT/HCPCS: 36415; 80053; 83883; 84155; 84165; 85025; 85651; 86147

== ENCOUNTER 2021-04-15 08:15 | Outpatient (CLI) | payer OTHER, SELFPAY ==
[2021-04-15 09:28] LABS: Total Volume, Urine 2925 mL
[2021-04-15 12:33] LABS: Total Protein 24 Hour Urine 122.9 mg/24HR (0-150); Urine Total Protein 24 Hour 4.2 mg/dL (0-150)
== END 2021-04-15 08:16 | disposition home or self-care (01) ==
LOC: ONCMED 08:16
PROVIDERS: PCP Family Medicine; Visit Provider Internal Medicine Medical Oncology
DX: R35.1 Nocturia (principal)
CPT/HCPCS: 84156

== ENCOUNTER 2021-05-10 12:08 | Outpatient (CLI) | payer OTHER, SELFPAY ==
--- NOTE | 2021-05-11 06:48 | ONC FU_ITS ---
Dr. Vides Patient Follow-Up Note Patient: Chris Lugo Unit #: [id number]: 1955 Dicatated By: Chris Vides M.D.Date of Visit:May 10, 2021 Onc Med Follow-up/Prog Note Chief Complaint: Smoldering myeloma. History of Present Illness: This is a 65 year-old man with IgG kappa monoclonal gammopathy, initially discovered on protein electrophoresis in December 2014. His evaluation has been consistent with smoldering myeloma. On routine laboratory analysis in December 2014 he was noted to have significant protein albumin dissociation with an elevated total protein level at 9.9. His albumin was normal. He had no hypercalcemia, no anemia, no renal disease. Serum protein electrophoresis revealed 3.23 g of IgG kappa monoclonal protein. [place] lambda ratio was elevated at 18.04. The patient was first seen by Dr. Gomez on 01/02/2015. His further studies showed 3.19 g/dL of IgG kappa monoclonal protein and free light chain ratio 14.4. His IgG was 5040 with decreased IgM and IgA. Random urine was negative for monoclonal protein. ESR 21, beta 2 microglobulin not elevated at 2.5. Bone marrow aspiration/biopsy on 01/14/2015 showed 6% plasma cells, with normal cytogenetics and normal FISH panel for multiple myeloma. Imaging showed negative skeletal survey. Lumbar MRI was negative for plasmacytoma. PET/CT on 05/02/2015 was negative exam, although there was incidental inflamed diverticulum and sigmoid colon. Clinically the presumed diverticulitis was asymptomatic. Overall, his evaluation was felt to be consistent with asymptomatic, smoldering myeloma. Observation/expectant management was recommended. As of this follow-up visit on 01/24/2017 his protein electrophoresis had shown just slight increase in his M protein, to 3.48 g/dL compared to 3.19 g/dL in December 2014. His urine protein electrophoresis at that time was normal, and his skeletal survey showed no lytic bone involvement. He had no symptomatic evidence of myeloma, and he continued observation/expectant management. As of 04/30/2018 his M protein had increased to 3.75 g/d. By April of 2019 it had increased on slightly, to 4.0 g/dL. His hemoglobin at that point was borderline low at 12.2 g. His renal function and calcium remained normal, and he continued on observation/expectant management. Repeat bone marrow aspiration/biopsy on 02/06/2020 showed approximately 50-70% involvement by plasma cell neoplasm. Staging PET/CT on 03/28/2020 showed no evidence of active malignancy. At that point his clinical status remained stable and as he still met no criteria for initiating treatment, he continued on observation/expectant management for the myeloma. His medical history is otherwise significant for hypertension and for some chronic anxiety. He does have a history of smoking 1/2 pack of cigarettes daily. INTERIM HISTORY: He is seen for a scheduled visit. He has been feeling okay. He still has pretty good energy and he has normal activity. ECOG score 0. He has good appetite and his weight is stable. He thinks he may run a slight fever at times, presumed allergy related. He has not had night sweating. He has no shortness of breath, cough, or chest pain. He has no GI or complaints. He has some aching in his neck, which is chronic. He has no other joint or bone pain. He does not complain of headache. He has no numbness/paresthesia or other focal neurologic symptoms. Medications: Aspirin 1 (81 mg) Tablet Oral daily, Cholecalciferol 1 Tablet (of 50 mcg) Oral daily, Enalapril Maleate 1 Tablet (of 10 mg) Oral daily, Flonase 2 spray(s) (of 50 mcg/act) Suspension Nasal daily, Metamucil Powder Oral daily, Omeprazole 1 Capsule (of 20 mg) Capsule Delayed Release Oral daily, Opcon-A 1 (0.027-0.315 %) Solution Ophthalmic daily, Refresh Tears 2 drop(s) Solution Ophthalmic t.i.d. PRN, Xyzal 1 Tablet (of 5 mg) Oral daily Allergies: No Known Allergies. Vital Signs: Performed on May 10, 2021 12:23 Height - 71.00 in Weight - 215.2 lbs (HIGH) BSA - 2.18 sq.m BMI - 30.01 (HIGH) Temperature - 98.6 F Pulse - 92 /min Respiration - 18 /min BP - 135/83 mm(hg) O2 Sat - 99 % Pain - 0 Physical Examination: Constitutional - He looks good generally, Eyes - Sclerae nonicteric. Conjunctivae clear, ENMT - No lesions noted in the oral cavity, Hematologic/Lymphatic - No cervical, clavicular, or axillary adenopathy, Respiratory - Lungs are clear with good air movement bilaterally, Cardiovascular - Heart rhythm is regular. There is a II/ systolic murmur. There is no gallop or rub noted, Abdomen - Soft. Liver and spleen are not enlarged. There is no abdominal mass or ascites noted and there is no inguinal adenopathy, Extremities - There is some mild swelling at the left ankle, which is chronic. There is otherwise no edema, Neurologic - No focal neurologic deficits noted. Lab/Imaging: Test performed on April 13, 2021 08:53 Sodium 133 mmol/L Potassium 4.2 mmol/L Chloride 105 mmol/L CO2 25 mmol/L Anion Gap 7.2 BUN 15 mg/dL Creatinine 0.9 mg/dL Cr Clearance (Est) 113.9400 mL/min eGFR 85.2 mL/min Glucose 83 mg/dL Osmolality - Calculated 276 mOsm/kg Calcium 7.9 mg/dL Protein, Total 10.4 g/dL Albumin 3.1 g/dL Globulin 7.3 g/dL Bilirubin, Total 0.4 mg/dL ALT (SGPT) 14 U/L AST (SGOT) 18 U/L Alkaline Phosphatase 96 IU/L ESR (Sed Rate) 56 mm/hr WBC 5.6 10 3/uL RBC 3.08 10 6/uL HGB 10.4 g/dL HCT 32.1 % MCV 104.2 fL MCH 33.8 pg MCHC 32.4 g/dL RDW 13.7 % Platelet Count 213 10 3/cmm MPV 9.6 fL Neutrophils 2.68 10 3/uL Lymphocytes 2.3 10 3/uL Monocytes 0.4 10 3/uL Eosinophils 0.1 10 3/uL Basophils 0.0 10 3/uL Neutrophil % 48.2 % Lymphocyte % 41.5 % Monocyte % 7.2 % Eosinophil % 2.0 % Basophils % 0.7 % NRBC % 0 % [place] Free Light Chains 596.6 mg/L Lambda Free Light Chains 2.9 mg/L [place]/Lambda Free Ratio 205.72 Test performed on Feb 09, 2021 09:45 IgG 5533 mg/dL IgA 8 mg/dL IgM < 25 mg/dL Problem List: 1. IgG kappa monoclonal gammopathy, first discovered in December of 2014, at which time the monoclonal protein quantitated at 3.19 g/dL. His evaluation was consistent with asymptomatic, smoldering myeloma. Observation/expectant management was recommended. 2. He has suppression of his normal immunoglobulin levels. He has not been symptomatic with it. 3. Hypertension. 4. He has had some chronic anxiety. Problems Addressed with this Encounter and Plan: Patient with IgG kappa monoclonal gammopathy, first discovered in December of 2014, at which time the monoclonal protein quantitated at 3.19 g/dL. His evaluation was consistent with asymptomatic, smoldering myeloma. Observation/expectant management was recommended. During follow-up there was a very gradual increase in his M protein and he became mildly anemic. His repeat bone marrow aspiration/biopsy in January 2020 show 50-70% involvement with plasma cell neoplasm. Staging PET/CT in March 2020 showed no evidence of active malignancy. At that point he continued expectant management, as there was no definite indication to initiate treatment. He has since then continued to have a gradual increase in his M protein, now up to 4.5 g/dL, and there has been gradual worsening of the anemia, hemoglobin now down to 10.4 g. However, as he has not been overtly symptomatic, I will continue to follow him expectantly. I will likely want to initiate treatment, though, when his hemoglobin drops below 10 g. I will see him again in 3 months. Signed By: Chris Vides M.D. <<Signature on File>>
== END 2021-05-10 12:09 | disposition home or self-care (01) ==
LOC: ONCMED 12:09
PROVIDERS: PCP Family Medicine; Visit Provider Internal Medicine Medical Oncology
DX: D47.2 Monoclonal gammopathy (principal); I10 Essential (primary) hypertension; F41.9 Anxiety disorder, unspecified
CPT/HCPCS: 99214

== ENCOUNTER 2021-08-06 10:48 | Outpatient (CLI) | payer OTHER, SELFPAY ==
[2021-08-06 12:09] LABS: Basophils % 0.8 %; Eosinophils # 0.1 10^3/uL (0.0-0.8); Eosinophils % 1.7 %; Hematocrit 31.8 % (42.0-52.0); Hemoglobin 10.3 g/dL (11.7-16.6); Lymphocytes # 2.8 10^3/uL (0.8-4.8); Mean Corpuscular HGB Conc 32.4 g/dL (30.0-36.0); Mean Corpuscular Hemoglobin 34.3 pg (28.0-34.0); Mean Platelet Volume 9.1 fL (7.4-10.4); Monocytes # 0.3 10^3/uL (0.2-0.9); Monocytes % 6.3 %; Neutrophils # 1.93 10^3/uL (1.8-7.7); Neutrophils % 36.8 %; Nucleated Red Blood Cells % 0 %; Platelet Count 212 10^3/cmm (130-400); Red Cell Distribution Width 13.6 % (12.1-15.1); White Blood Count 5.2 10^3/uL (4.0-10.0)
[2021-08-06 12:34] LABS: Alanine Aminotransferase 11 U/L (0-41); Albumin Level 3.1 g/dL (3.5-5.2); Alkaline Phosphatase 94 IU/L (40-130); Anion Gap 8.1 (5-19); Aspartate Amino Transferase 14 U/L (0-40); Blood Urea Nitrogen 12 mg/dL (8-23); Calcium 7.9 mg/dL (8.5-10.5); Carbon Dioxide 25 mmol/L (22-29); Chloride 104 mmol/L (98-107); Globulin 6.7 g/dL (1.3-4.6); Glomerular Filtration Rate 85.2 mL/min (90-130); Glucose 91 mg/dL (65-115); Immunoglobulin IGG 4866 mg/dL (700-1600); Lactate Dehydrogenase 177 U/L (135-225); Osmolality Calculated 275 mOsm/kg (285-295); Potassium 4.1 mmol/L (3.5-5.1); Sodium 133 mmol/L (136-145); Total Bilirubin 0.3 mg/dL (0.15-1.2); Total Protein 9.8 g/dL (6.6-8.7)
[2021-08-06 12:58] LABS: Immunoglobulin IGA 6 mg/dL (70-400)
[2021-08-06 12:59] LABS: Immunoglobulin IGM < 25 mg/dL (40-230)
[2021-08-06 13:18] LABS: Erythrocyte Sedimentation Rate 46 mm/hr (0-10)
[2021-08-07 13:07] LABS: PROTEIN, TOTAL 10.7 g/dL (6.1-8.1)
[2021-08-09 11:52] LABS: KAPPA LIGHT CHAIN, FREE, SERUM 606.5 mg/L (3.3-19.4); KAPPA/LAMBDA LIGHT CHAINS FREE 202.17 (0.26-1.65)
[2021-08-09 14:22] LABS: ABNORMAL PROTEIN BAND 1 4.9 g/dL (NONE DETECTED); ALPHA 1 GLOBULIN 0.3 g/dL (0.2-0.3); ALPHA 2 GLOBULIN 0.8 g/dL (0.5-0.9); BETA 1 GLOBULIN 0.4 g/dL (0.4-0.6); BETA 2 GLOBULIN 0.2 g/dL (0.2-0.5)
== END 2021-08-06 10:49 | disposition home or self-care (01) ==
LOC: ONCMED 10:50
PROVIDERS: PCP Family Medicine; Visit Provider Internal Medicine Medical Oncology
DX: D47.2 Monoclonal gammopathy (principal); C90.01 Multiple myeloma in remission; Z79.899 Other long term (current) drug therapy
CPT/HCPCS: 36415; 80053; 82232; 82784; 83615; 83883; 84155; 84165; 85025; 85651

== ENCOUNTER 2021-08-11 06:34 | Outpatient (CLI) | payer OTHER, SELFPAY ==
--- NOTE | 2021-08-14 13:56 | ONC FU_ITS ---
Dr. Vides Patient Follow-Up Note Patient: Chris Lugo Unit #: [id number]: 1955 Dicatated By: Chris Vides M.D.Date of Visit:Aug 11, 2021 Onc Med Follow-up/Prog Note Chief Complaint: Smoldering myeloma. History of Present Illness: This is a 65 year-old man with IgG kappa monoclonal gammopathy, initially discovered on protein electrophoresis in December 2014. His evaluation has been consistent with smoldering myeloma. On routine laboratory analysis in December 2014 he was noted to have significant protein albumin dissociation with an elevated total protein level at 9.9. His albumin was normal. He had no hypercalcemia, no anemia, no renal disease. Serum protein electrophoresis revealed 3.23 g of IgG kappa monoclonal protein. [place] lambda ratio was elevated at 18.04. The patient was first seen by Dr. Gomez on 01/02/2015. His further studies showed 3.19 g/dL of IgG kappa monoclonal protein and free light chain ratio 14.4. His IgG was 5040 with decreased IgM and IgA. Random urine was negative for monoclonal protein. ESR 21, beta 2 microglobulin not elevated at 2.5. Bone marrow aspiration/biopsy on 01/14/2015 showed 6% plasma cells, with normal cytogenetics and normal FISH panel for multiple myeloma. Imaging showed negative skeletal survey. Lumbar MRI was negative for plasmacytoma. PET/CT on 05/02/2015 was negative exam, although there was incidental inflamed diverticulum and sigmoid colon. Clinically the presumed diverticulitis was asymptomatic. Overall, his evaluation was felt to be consistent with asymptomatic, smoldering myeloma. Observation/expectant management was recommended. As of this follow-up visit on 01/24/2017 his protein electrophoresis had shown just slight increase in his M protein, to 3.48 g/dL compared to 3.19 g/dL in December 2014. His urine protein electrophoresis at that time was normal, and his skeletal survey showed no lytic bone involvement. He had no symptomatic evidence of myeloma, and he continued observation/expectant management. As of 04/30/2018 his M protein had increased to 3.75 g/d. By April of 2019 it had increased on slightly, to 4.0 g/dL. His hemoglobin at that point was borderline low at 12.2 g. His renal function and calcium remained normal, and he continued on observation/expectant management. Repeat bone marrow aspiration/biopsy on 02/06/2020 showed approximately 50-70% involvement by plasma cell neoplasm. Staging PET/CT on 03/28/2020 showed no evidence of active malignancy. At that point his clinical status remained stable and as he still met no criteria for initiating treatment, he continued on observation/expectant management for the myeloma. His medical history is otherwise significant for hypertension and for some chronic anxiety. He does have a history of smoking 1/2 pack of cigarettes daily. INTERIM HISTORY: He is seen for a scheduled visit. He says he is feeling fine. He has good energy and normal activity. ECOG score is 0. His appetite is good. He has no fever or night sweats. He has some allergy related sinus symptoms he has had a slight sore throat. He has no shortness of breath, cough, or chest pain. He has no GI or complaints. He has no significant joint or bone pain. He does not complain of headache or dizziness, and he has no focal neurologic symptoms. Medications: Aspirin 1 (81 mg) Tablet Oral daily, Cholecalciferol 1 Tablet (of 50 mcg) Oral daily, Enalapril Maleate 1 Tablet (of 10 mg) Oral daily, Flonase 2 spray(s) (of 50 mcg/act) Suspension Nasal daily, Metamucil Powder Oral daily, Omeprazole 1 Capsule (of 20 mg) Capsule Delayed Release Oral daily, Opcon-A 1 (0.027-0.315 %) Solution Ophthalmic daily, Refresh Tears 2 drop(s) Solution Ophthalmic t.i.d. PRN, Xyzal 1 Tablet (of 5 mg) Oral daily Allergies: No Known Allergies. Vital Signs: Performed on Aug 11, 2021 16:10 Height - 71.00 in Weight - 208.2 lbs (LOW) BSA - 2.15 sq.m BMI - 29.04 Temperature - 99.0 F (HIGH) Pulse - 85 /min Respiration - 18 /min BP - 159/76 mm(hg) (HIGH) O2 Sat - 99 % Pain - 0 Fatigue - 3 Physical Examination: Constitutional - He looks good generally, Eyes - Sclerae nonicteric. Conjunctivae clear, ENMT - No lesions noted in the oral cavity, Hematologic/Lymphatic - No cervical, clavicular, or axillary adenopathy, Respiratory - Lungs are clear with good air movement bilaterally, Cardiovascular - Heart rhythm is regular. There is a II/ systolic murmur. There is no gallop or rub noted, Abdomen - Soft. Liver and spleen are not enlarged. There is no abdominal mass or ascites noted and there is no inguinal adenopathy, Extremities - No edema, Integumentary - There are actinic lesions on the right forearm and on the upper left arm, Neurologic - No focal neurologic deficits noted. Lab/Imaging: Test performed on Aug 06, 2021 11:55 LDH (Total) 177 U/L Sodium 133 mmol/L Potassium 4.1 mmol/L Chloride 104 mmol/L CO2 25 mmol/L Anion Gap 8.1 BUN 12 mg/dL Creatinine 0.9 mg/dL Cr Clearance (Est) 115.9900 mL/min eGFR 85.2 mL/min Glucose 91 mg/dL Osmolality - Calculated 275 mOsm/kg Calcium 7.9 mg/dL Protein, Total 9.8 g/dL Albumin 3.1 g/dL Globulin 6.7 g/dL Bilirubin, Total 0.3 mg/dL ALT (SGPT) 11 U/L AST (SGOT) 14 U/L Alkaline Phosphatase 94 IU/L ESR (Sed Rate) 46 mm/hr WBC 5.2 10 3/uL RBC 3.00 10 6/uL HGB 10.3 g/dL HCT 31.8 % MCV 106.0 fl MCH 34.3 pg MCHC 32.4 g/dL RDW 13.6 % Platelet Count 212 10 3/cmm MPV 9.1 fL Neutrophils 1.93 10 3/uL Lymphocytes 2.8 10 3/uL Monocytes 0.3 10 3/uL Eosinophils 0.1 10 3/uL Basophils 0.0 10 3/uL Neutrophil % 36.8 % Lymphocyte % 54.0 % Monocyte % 6.3 % Eosinophil % 1.7 % Basophils % 0.8 % NRBC % 0 % Beta-2 Microglobulin 4.10 mg/L IgA 6 mg/dL [place] Free Light Chains 606.5 mg/L Lambda Free Light Chains 3.0 mg/L [place]/Lambda Free Ratio 202.17 Problem List: 1. IgG kappa monoclonal gammopathy, first discovered in December of 2014, at which time the monoclonal protein quantitated at 3.19 g/dL. His evaluation was consistent with asymptomatic, smoldering myeloma. Observation/expectant management was recommended. 2. He has suppression of his normal immunoglobulin levels. He has not been symptomatic with it. 3. Hypertension. 4. He has had some chronic anxiety. Problems Addressed with this Encounter and Plan: Patient with IgG kappa monoclonal gammopathy, first discovered in December of 2014, at which time the monoclonal protein quantitated at 3.19 g/dL. His evaluation was consistent with asymptomatic, smoldering myeloma. Expectant management was recommended. During follow-up there was a very gradual increase in his M protein and he became mildly anemic. His repeat bone marrow aspiration/biopsy in January 2020 show 50-70% involvement with plasma cell neoplasm. Staging PET/CT in March 2020 showed no evidence of active malignancy. At that point he continued expectant management, as there was no definite indication to initiate treatment. Since then there has been continued gradual increase in the M protein, now up to 4.9 g/dL. There also has been continued gradual decline in the hemoglobin, now to 10.3 g. Renal function and calcium remain normal, and he remains asymptomatic. As such, he can continue expectant management, but I do anticipate that he will be needing to start treatment within the next year or so, at this point I am going to start the process of getting him established with a transplant center, as he will definitely be a candidate for stem cell transplant. Signed By: Chris Vides M.D. <<Signature on File>>
== END 2021-08-11 06:35 | disposition home or self-care (01) ==
PROVIDERS: PCP Family Medicine; Visit Provider Internal Medicine Medical Oncology
DX: C90.01 Multiple myeloma in remission (principal); I10 Essential (primary) hypertension; F41.9 Anxiety disorder, unspecified; Z79.899 Other long term (current) drug therapy
CPT/HCPCS: 99214

== ENCOUNTER → 2021-12-27 08:42 | Outpatient (BNVA) | payer OTHER, SELFPAY | PROVIDERS: PCP Family Medicine; Visit Provider Family Medicine | DX: I10 Essential (primary) hypertension (principal); R35.1 Nocturia; J30.89 Other allergic rhinitis; K21.9 Gastro-esophageal reflux disease without esophagitis; C90.00 Multiple myeloma not having achieved remission | CPT/HCPCS: 80053; 80061; 84153; 85025 ==

== ENCOUNTER 2022-02-25 08:19 | Outpatient (CLI) | payer MEDICAID, SELFPAY ==
--- NOTE | 2022-02-25 10:11 | ONC FU_ITS ---
Amy Pisano Progress Note Patient: Chris Lugo Unit #: [id number]: 1955 Dicatated By: Amy Pisano N.P.Date of Visit:Feb 25, 2022 Onc MED Follow-up/Prog Note Chief Complaint: Smoldering myeloma. History of Present Illness: This is a 65 year-old man with IgG kappa monoclonal gammopathy, initially discovered on protein electrophoresis in December 2014. His evaluation has been consistent with smoldering myeloma. On routine laboratory analysis in December 2014 he was noted to have significant protein albumin dissociation with an elevated total protein level at 9.9. His albumin was normal. He had no hypercalcemia, no anemia, no renal disease. Serum protein electrophoresis revealed 3.23 g of IgG kappa monoclonal protein. [place] lambda ratio was elevated at 18.04. The patient was first seen by Dr. Gomez on 01/02/2015. His further studies showed 3.19 g/dL of IgG kappa monoclonal protein and free light chain ratio 14.4. His IgG was 5040 with decreased IgM and IgA. Random urine was negative for monoclonal protein. ESR 21, beta 2 microglobulin not elevated at 2.5. Bone marrow aspiration/biopsy on 01/14/2015 showed 6% plasma cells, with normal cytogenetics and normal FISH panel for multiple myeloma. Imaging showed negative skeletal survey. Lumbar MRI was negative for plasmacytoma. PET/CT on 05/02/2015 was negative exam, although there was incidental inflamed diverticulum and sigmoid colon. Clinically the presumed diverticulitis was asymptomatic. Overall, his evaluation was felt to be consistent with asymptomatic, smoldering myeloma. Observation/expectant management was recommended. As of this follow-up visit on 01/24/2017 his protein electrophoresis had shown just slight increase in his M protein, to 3.48 g/dL compared to 3.19 g/dL in December 2014. His urine protein electrophoresis at that time was normal, and his skeletal survey showed no lytic bone involvement. He had no symptomatic evidence of myeloma, and he continued observation/expectant management. As of 04/30/2018 his M protein had increased to 3.75 g/d. By April of 2019 it had increased on slightly, to 4.0 g/dL. His hemoglobin at that point was borderline low at 12.2 g. His renal function and calcium remained normal, and he continued on observation/expectant management. Repeat bone marrow aspiration/biopsy on 02/06/2020 showed approximately 50-70% involvement by plasma cell neoplasm. Staging PET/CT on 03/28/2020 showed no evidence of active malignancy. At that point his clinical status remained stable and as he still met no criteria for initiating treatment, he continued on observation/expectant management for the myeloma. His medical history is otherwise significant for hypertension and for some chronic anxiety. He does have a history of smoking 1/2 pack of cigarettes daily. INTERIM HISTORY: Patient presents today for a follow-up visit. He states he is having some mild fatigue but otherwise he feels fine. His appetite has been good. No fever chills, night sweats. He experiences some clear sinus drainage secondary to allergies. He denies shortness of breath, cough, chest pain. No GI or problems. He has bilateral knee pain which is chronic. He also has occasional numbness and tingling in his bilateral feet. He was evaluated at [facility] on 02/22/2022 and treatment was discussed. He presents today for follow-up prior to a bone marrow biopsy that will be performed on 02/28/2022. He will also need a PET scan for restaging. Review Of Symptoms: see above. Past Medical History: Anxiety Hypertension Past Surgical History: Fatty tissue deposit removed from forehead Inguinal hernia repair Bone marrow biopsy in 2019 Shingles vaccine in 2016 Pneumonia vaccine in 2014 Flu vaccine (per pt) in 2014 Allergies: No Known Allergies. Medications: Aspirin 1 (81 mg) Tablet Oral daily Cholecalciferol 1 Tablet (of 50 mcg) Oral daily Enalapril Maleate 1 Tablet (of 10 mg) Oral daily Flonase 2 spray(s) (of 50 mcg/act) Suspension Nasal daily Metamucil Powder Oral daily Omeprazole 1 Capsule (of 20 mg) Capsule Delayed Release Oral daily Opcon-A 1 (0.027-0.315 %) Solution Ophthalmic daily Refresh Tears 2 drop(s) Solution Ophthalmic t.i.d. PRN Xyzal 1 Tablet (of 5 mg) Oral daily Family History: Mr. Lugo's mother at age 76. Mr. Lugo's father at age 87. Father Lung Cancer age 87 Mother Leukemia age 76 Sister Ovarian Cancer age 58. 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 Mr. Lugo no longer smokes but had smoked 0.5 packs/day for 40 years. Mr. Lugo reports the following support systems: lives in own house and adequate transportation available for expected visits. His diet consists of regular meals. He indicates his activity level as: daily activities. patient states he has not been smoking recently. Physical Examination: Performed on Feb 25, 2022 09:29: Height - 71.00 in, Weight - 216.4 lbs (HIGH), BSA - 2.18 sq.m, BMI - 30.18 (HIGH), Temperature - 98.3 F (LOW), Pulse - 83 /min, Respiration - 16 /min, BP - 153/81 mm(hg) (HIGH), O2 Sat - 95 % (LOW), Pain - 0, and Fatigue - 3. Performance Status: 0 - Fully active, able to carry on all predisease activities without restrictions. (ECOG) Constitutional Alert, cooperative, oriented. Mood and affect appropriate. Appears close to chronological age. Well nourished. Well developed. Head Normocephalic; no scars. Eyes Conjunctivae and sclerae are clear and without icterus. Pupils are reactive and equal. Hematologic/Lymphatic No petechiae or purpura. No tender or palpable lymph nodes in the cervical, supraclavicular, axillary or inguinal area. Respiratory Lungs are clear to auscultation without rhonchi or wheezing. Cardiovascular Regular rate and rhythm of heart without murmurs, gallops or rubs. Abdomen Non-tender, non-distended, no masses, ascites or hepatosplenomegaly. Good bowel sounds. No guarding or rebound tenderness. Extremities No visible deformities, no cyanosis, clubbing or edema. Pulses 3+ and equal bilaterally. Musculoskeletal No tenderness or swelling, normal range of motion without obvious weakness. Psychiatric Alert and oriented times three. Coherent speech. Verbalizes understanding of our discussions today. Laboratory: Most recent lab results are not available for this patient. Impression: 1. IgG kappa monoclonal gammopathy, first discovered in December of 2014, at which time the monoclonal protein quantitated at 3.19 g/dL. His evaluation was consistent with asymptomatic, smoldering myeloma. Observation/expectant management was recommended. 2. He has suppression of his normal immunoglobulin levels. He has not been symptomatic with it. 3. Hypertension. 4. He has had some chronic anxiety. Plan: Patient with IgG kappa monoclonal gammopathy, first discovered in December of 2014, at which time the monoclonal protein quantitated at 3.19 g/dL. His evaluation was consistent with asymptomatic, smoldering myeloma. Expectant management was recommended. During follow-up there was a very gradual increase in his M protein and he became mildly anemic. His repeat bone marrow aspiration/biopsy in January 2020 show 50-70% involvement with plasma cell neoplasm. Staging PET/CT in March 2020 showed no evidence of active malignancy. At that point he continued expectant management, as there was no definite indication to initiate treatment. Since then there has been continued gradual increase in the M protein, now up to 4.9 g/dL. There also has been continued gradual decline in the hemoglobin, now to 10.3 g. Renal function and calcium remain normal, and he remains asymptomatic. As such, he can continue expectant management, but we do anticipate that he will be needing to start treatment within the next year or so, Dr. Vides start the process of getting him established with a transplant center, as he will definitely be a candidate for stem cell transplant. Patient had appointment at [facility] with Dr. Tovar. She contacted me on 02/24/2022 to discuss patient status. She evaluated him on Monday for 522. His hemoglobin at that time was 9.9. Symptoms of myeloma included evidence of M protein increase and anemia. She recommends that he be restaged for treatment with a bone marrow biopsy and a PET CT scan. He should then start treatment with Revlimid, Velcade, dexamethasone. Patient will return to the clinic in approximately 2 to 3 weeks to discuss results of the bone marrow biopsy with Dr. Vides and determine further course of treatment from there. Signed By: Kayleigh Barry.Mya. <<Signature on File>>
== END 2022-02-25 08:20 | disposition home or self-care (01) ==
PROVIDERS: PCP Family Medicine; Visit Provider Nurse Practitioner Family
DX: C90.00 Multiple myeloma not having achieved remission (principal); R79.89 Other specified abnormal findings of blood chemistry; D64.9 Anemia, unspecified; Z79.899 Other long term (current) drug therapy; Z79.52 Long term (current) use of systemic steroids
CPT/HCPCS: 99215

== ENCOUNTER 2022-02-28 11:03 | Day surgery (SDC) | payer MEDICAID, SELFPAY ==
[2022-02-25 10:04] VITALS: BMI 30.1
[2022-02-28 11:36] VITALS: BP 146/96; PULSE 78; RESP 18; TEMP 36.9; O2SAT 100
[2022-02-28] MEDS: sodium chloride 0.9% 1,000 ML 30 ML IV (11:55)
[2022-02-28 12:02] LABS: Basophils % 0.6 %; Eosinophils # 0.1 10^3/uL (0.0-0.8); Eosinophils % 0.9 %; Hematocrit 31.1 % (42.0-52.0); Lymphocytes # 2.4 10^3/uL (0.8-4.8); Lymphocytes % 36.9 %; Mean Corpuscular HGB Conc 32.2 g/dL (30.0-36.0); Mean Corpuscular Hemoglobin 34.2 pg (28.0-34.0); Mean Corpuscular Volume 106.5 fl (80-94); Mean Platelet Volume 9.2 fL (7.4-10.4); Monocytes # 0.4 10^3/uL (0.2-0.9); Monocytes % 6.6 %; Neutrophils # 3.58 10^3/uL (1.8-7.7); Neutrophils % 54.1 %; Nucleated Red Blood Cells % 0 %; Platelet Count 212 10^3/cmm (130-400); Red Blood Count 2.92 10^6/uL (4.1-5.3); Red Cell Distribution Width 13.6 % (12.1-15.1); White Blood Count 6.6 10^3/uL (4.0-10.0)
--- NOTE | 2022-02-28 12:41 | ANES.PREANE2 ---
Pre-Anesthetic Assessment Height/Weight: Height 1.8 m Weight 97.976 kg Temp Pulse Resp BP Pulse Ox 98.4 F 78 18 146/96 100 02/28/22 11:36 02/28/22 11:36 02/28/22 11:36 02/28/22 11:36 02/28/22 11:36 Preop Diagnosis: myeloma Operation Date: 02/28/22 12:30 Proposed Procedures p Bone Marrow Biospy With c90(Not Applicable) - Lan Chapa MD Familial anesthetic complications: none Was Beta Darin taken within 24 hours: N/A Was Clonidine taken within 24 hours: N/A Last intake: Intake Last Liquid Date 02/28/22 Last Liquid Time 08:00 Last Solid Date 02/27/22 Last Solid Time 20:00 Social No alcohol and No tobacco Exam alert and oriented x 3 Airway Submandibular: within normal limits Cervical ROM: within normal limits Mallampati: Class II Dentition: full History/ROS No significant history except as noted Pulmonary None reported CV/HEM Hypertension None reported Hepatic None reported GI Gastroesophageal Reflux Disease Metabolic None reported Musc/skel None reported Neuropsych None reported Anesthetic Plan ASA status: 3 Anesthesia: Anesthesia Evaluation and MAC Risk of > 500 ml blood loss (7ml/kg in children): No Medications/Allergies Home Medications Medication Instructions Recorded Confirmed Last Taken Type aspirin 81 mg tablet,delayed 81 mg PO DAILY 01/07/20 02/28/22 02/24/22 History release cholecalciferol (vitamin D3) 25 50 mcg PO DAILY tab 01/07/20 02/25/22 02/27/22 History mcg (1,000 unit) chewable tablet AUTO-TITRATING CPAP 6-16CM #1 ea 05/20/20 02/25/22 Unknown Rx carboxymethylcellulose sodium 0.5 1 drp OPHTHALMIC (EYE) QID 12/27/21 02/25/22 02/27/22 History % eye drops (Refresh Tears) enalapril maleate 10 mg tablet 10 mg PO DAILY #90 tab 12/27/21 02/25/22 02/27/22 Rx fluticasone propionate 50 2 spray INTRANASAL DAILY #16 g 12/27/21 02/25/22 02/27/22 Rx mcg/actuation nasal spray,suspension (Flonase Allergy Relief) levocetirizine 5 mg tablet (Xyzal) 5 mg PO DAILY #90 tab 12/27/21 02/25/22 02/27/22 Rx naphazoline-pheniramine 0.69227 2 drp OPHTHALMIC (EYE) QID 12/27/21 02/25/22 02/27/22 History %-0.315 % eye drops (Opcon-A) omeprazole 20 mg capsule,delayed 20 mg PO DAILY #90 cap 12/27/21 02/25/22 02/27/22 Rx release psyllium 1 packet PO BID 02/25/22 02/25/22 02/27/22 History Allergies Allergy/AdvReac Type Severity Reaction Status Date / Time No Known Allergies Allergy Verified 02/25/22 10:00 Current Medications Generic Name Dose Route Start Last Admin Trade Name Freq PRN Reason Stop Dose Admin Sodium Chloride 1,000 mls @ 30 mls/hr 02/28/22 11:15 02/28/22 11:55 Sodium Chloride 0.9% IV 03/01/22 11:14 30 mls/hr .Q24H ENEDINA Administration PFSH Anesthesia Medical History Essential hypertension Hypersomnia Mild acid reflux Multiple myeloma Diagnosed Dec 2014 BENJI (obstructive sleep apnea) Diagnosed 05/14/2020 sleep lab Seborrheic keratoses Smoldering myeloma Splinter of finger without major open wound or infection Surgical History H/O hernia repair History of detached retina repair Family History Other CAD (coronary artery disease) Cancer Diabetes Hypertension Social History Smoking and tobacco status: former smoker Alcohol intake: current Alcohol intake frequency: holidays/special occasions only Data Anesthesia : 02/28/22 11:50 Short CBC 02/28/22 Range/Units 11:50 WBC 6.6 (4.0-10.0) 10^3/uL Hgb 10.0 L (11.7-16.6) g/dL Hct 31.1 L (42.0-52.0) % MCV 106.5 H (80-94) fl Plt Count 212 (130-400) 10^3/cmm Neut % (Auto) 54.1 % Neut # (Auto) 3.58 (1.8-7.7) 10^3/uL Cardiac Studies: No Data to Display
--- NOTE | 2022-02-28 12:44 | W.PM.OPSUD ---
Surgery/Procedure H&P Update DATE OF PROCEDURE: February 28, 2022 DATE H&P PERFORMED: 02/28/22 CHANGES TO PREVIOUS DOCUMENTATION: Patient seen and examined, no obvious change since his last visit to clinic. We will proceed with bone marrow evaluation for history of multiple myeloma PREOP DIAGNOSIS: myeloma PLANNED PROCEDURE: Operation Date: 02/28/22 12:30 Proposed Procedures p Bone Marrow Biospy With c90(Not Applicable) - Lan Chapa MD
--- NOTE | 2022-02-28 13:03 | PM.BMB ---
Bone Marrow Biopsy Bone Marrow Biopsy: I was consulted by [] office regarding bone marrow biopsy on [Chris Lugo]. Briefly, the patient is a [66] year old [Male] with [History of myeloma]. In the Outpatient Services Department, with nursing staff and laboratory technologists in attendance, the procedure was discussed with the patient. Appropriate consent form had been signed. Appropriate alternatives, benefits and risks of procedure were discussed with the patient and he was pre-operatively assessed with a history and physical by myself and cleared for the biopsy procedure. The patient did request IV sedation and that was provided by the Anesthesia Department. Under aseptic condition right posterior iliac area was cleaned and prepped, local anesthesia was given, about 15 cc of bone marrow aspirate and core biopsy was obtained. Patient tolerated procedure well, hemostasis was obtained. Specimen was sent for routine histopathology, myeloma panel, Post procedure nursing instructions were given Thank you for allowing me to participate in this patient's care and diagnosis. 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
[2022-02-28 13:13] VITALS: BP 118/60; PULSE 60; RESP 20; TEMP 36.4; O2SAT 95
[2022-02-28 13:24] VITALS: BP 140/97; PULSE 62; RESP 18; O2SAT 100
--- NOTE | 2022-02-28 13:35 | ANE.PACU2 ---
Inpatient post-anesthesia follow up: Airway intact: Yes Vital signs: Temperature 97.6 F Pulse Rate 62 Respiratory Rate 18 Blood Pressure 140/97 Pulse Oximetry 100 Oxygen Delivery Me thod Room Air Oxygen Flow Rate Fraction of Inspir ed Oxygen Hydration adequate: Yes Nausea and vomiting: No Pain level: 1 Mental status: Baseline
[2022-03-02 13:29] LABS: Leukemia Profile (BBPL) See Report; Lymphoma Profile (BBPL) See Report
[2022-03-08 13:07] LABS: Miscellaneous Test See Scanned Lab Rpt
[2022-03-11 11:48] LABS: Miscellaneous Test See Scanned Lab Rpt
== END 2022-02-28 13:35 | disposition home or self-care (01) ==
PROVIDERS: PCP Family Medicine; Visit Provider Internal Medicine Hematology & Oncology
PROC: 07DT3ZX Extraction of Bone Marrow, Percutaneous Approach, Diagnostic (ICD-10-PCS; CPT 38222; principal; 2022-02-28 12:30)
DX: C90.00 Multiple myeloma not having achieved remission (principal)
CPT/HCPCS: 36415; 38222; 85025; 88184; 88185; 88237; 88264; 88305; 88311; 88374; J2704; J7030

== ENCOUNTER 2022-04-14 08:30 | Oncology outpatient (recurring) (ONCR) | payer MEDICAID, SELFPAY ==
[2022-04-07 09:25] LABS: Basophils % 0.5 %; Eosinophils # 0.1 10^3/uL (0.0-0.8); Eosinophils % 1.9 %; Hematocrit 28.7 % (42.0-52.0); Hemoglobin 9.1 g/dL (11.7-16.6); Lymphocytes % 47.7 %; Mean Corpuscular HGB Conc 31.7 g/dL (30.0-36.0); Mean Corpuscular Hemoglobin 34.1 pg (28.0-34.0); Mean Corpuscular Volume 107.5 fl (80-94); Mean Platelet Volume 9.1 fL (7.4-10.4); Monocytes # 0.3 10^3/uL (0.2-0.9); Monocytes % 7.9 %; Neutrophils # 1.72 10^3/uL (1.8-7.7); Neutrophils % 41.3 %; Nucleated Red Blood Cells % 0 %; Platelet Count 263 10^3/cmm (130-400); Red Blood Count 2.67 10^6/uL (4.1-5.3); Red Cell Distribution Width 14.3 % (12.1-15.1); White Blood Count 4.2 10^3/uL (4.0-10.0)
[2022-04-07 09:42] LABS: Alanine Aminotransferase 11 U/L (0-41); Albumin Level 3.2 g/dL (3.5-5.2); Alkaline Phosphatase 87 IU/L (40-130); Anion Gap 8.3 (5-19); Aspartate Amino Transferase 15 U/L (0-40); Blood Urea Nitrogen 14 mg/dL (8-23); Calcium 7.8 mg/dL (8.5-10.5); Carbon Dioxide 23 mmol/L (22-29); Chloride 101 mmol/L (98-107); Globulin 7.8 g/dL (1.3-4.6); Glucose 112 mg/dL (65-115); Osmolality Calculated 267 mOsm/kg (285-295); Potassium 4.3 mmol/L (3.5-5.1); Sodium 128 mmol/L (136-145); Total Bilirubin 0.5 mg/dL (0.15-1.2)
[2022-04-07] MEDS: dexamethasone 4 mg Tablet 40 MG PO (12:17)
[2022-04-07] MEDS: ondansetron 4 MG Tablet 8 MG PO (12:17)
[2022-04-07] MEDS: bortezomib 3.5 mg SDV 2.8 MG SUBCUT (12:21)
[2022-04-07 12:40] VITALS: BP 120/78; PULSE 78; RESP 18; TEMP 36.4; O2SAT 98
[2022-04-08 10:53] LABS: PROTEIN, TOTAL 12.6 g/dL (6.1-8.1)
[2022-04-08 15:22] LABS: ABNORMAL PROTEIN BAND 1 6.1 g/dL (NONE DETECTED); ALBUMIN 4.4 g/dL (3.8-4.8); ALPHA 1 GLOBULIN 0.4 g/dL (0.2-0.3); BETA 1 GLOBULIN 0.4 g/dL (0.4-0.6); BETA 2 GLOBULIN 0.3 g/dL (0.2-0.5); GAMMA GLOBULIN 6.2 g/dL (0.8-1.7); KAPPA LIGHT CHAIN, FREE, SERUM 934.9 mg/L (3.3-19.4); KAPPA/LAMBDA LIGHT CHAINS FREE 246.03 (0.26-1.65); LAMBDA LIGHT CHAIN, FREE, SERU 3.8 mg/L (5.7-26.3)
[2022-04-14 09:46] LABS: Basophils % 0.2 %; Eosinophils # 0.2 10^3/uL (0.0-0.8); Eosinophils % 2.9 %; Hemoglobin 7.8 g/dL (11.7-16.6); Lymphocytes # 1.2 10^3/uL (0.8-4.8); Mean Corpuscular HGB Conc 32.5 g/dL (30.0-36.0); Mean Corpuscular Hemoglobin 34.5 pg (28.0-34.0); Mean Corpuscular Volume 106.2 fl (80-94); Mean Platelet Volume 10.6 fL (7.4-10.4); Monocytes # 0.4 10^3/uL (0.2-0.9); Monocytes % 8.4 %; Neutrophils # 3.22 10^3/uL (1.8-7.7); Neutrophils % 62.7 %; Nucleated Red Blood Cells % 0 %; Platelet Count 180 10^3/cmm (130-400); Red Blood Count 2.26 10^6/uL (4.1-5.3); Red Cell Distribution Width 14.4 % (12.1-15.1); White Blood Count 5.1 10^3/uL (4.0-10.0)
[2022-04-14 10:07] LABS: Alanine Aminotransferase 14 U/L (0-41); Albumin Level 2.9 g/dL (3.5-5.2); Alkaline Phosphatase 70 IU/L (40-130); Anion Gap 12.8 (5-19); Aspartate Amino Transferase 11 U/L (0-40); Blood Urea Nitrogen 15 mg/dL (8-23); Calcium 8.6 mg/dL (8.5-10.5); Carbon Dioxide 22 mmol/L (22-29); Chloride 100 mmol/L (98-107); Globulin 6.3 g/dL (1.3-4.6); Glomerular Filtration Rate 75.2 mL/min (90-130); Glucose 95 mg/dL (65-115); Osmolality Calculated 273 mOsm/kg (285-295); Potassium 3.8 mmol/L (3.5-5.1); Sodium 131 mmol/L (136-145); Total Bilirubin 0.5 mg/dL (0.15-1.2); Total Protein 9.2 g/dL (6.6-8.7)
[2022-04-14] MEDS: dexamethasone 4 mg Tablet 40 MG PO (11:56)
[2022-04-14] MEDS: ondansetron 4 MG Tablet 8 MG PO (11:57)
[2022-04-14] MEDS: acetaminophen 325 mg Tablet 650 MG PO (11:58)
[2022-04-14] MEDS: diphenhydrAMINE 25 mg Capsule PO (11:58)
[2022-04-14] MEDS: bortezomib 3.5 mg SDV 2.8 MG SUBCUT (11:59)
[2022-04-14] MEDS: sodium chloride 0.9% 250 ML 75 ML IV (12:12)
[2022-04-14 13:11] VITALS: BP 101/56; PULSE 64; RESP 18; TEMP 37; O2SAT 98
[2022-04-14 13:30] VITALS: BP 95/52; PULSE 63; RESP 18; TEMP 36.8; O2SAT 97
[2022-04-14 13:45] VITALS: BP 89/55; PULSE 62; RESP 18; TEMP 36.6; O2SAT 97
[2022-04-14 14:15] VITALS: BP 87/62; PULSE 64; RESP 18; TEMP 36.6; O2SAT 97
[2022-04-14 15:00] VITALS: BP 89/62; PULSE 64; TEMP 36.8; O2SAT 97
--- NOTE | 2022-04-14 16:30 | PC.NURSE ---
1500pm discharge patients blood infused with the IV cannula removed intact and site unremarkable site secured with gauze and coban no issues noted/mm
--- NOTE | 2022-04-14 16:32 | PC.NURSE ---
iv site discontinued with intracath intact. Site secured with gauze and coban. He left with the plan for follow up with scheduling.mm
== END 2022-04-19 23:59 | disposition home or self-care (01) ==
PROVIDERS: Internal Medicine Medical Oncology; Nurse Practitioner; PCP Family Medicine; Visit Provider Nurse Practitioner Family
DX: Z51.11 Encounter for antineoplastic chemotherapy (principal); C90.00 Multiple myeloma not having achieved remission
CPT/HCPCS: 36415; 36430; 80053; 83883; 84155; 84165; 85025; 86850; 86900; 86920; 96401; 99214; 99215; 99999; J7050; J8540; J9041; P9016; Q0162

== ENCOUNTER 2022-05-19 08:00 | Oncology outpatient (recurring) (ONCR) | payer MEDICAID, SELFPAY ==
[2022-04-21] MEDS: dexamethasone 4 mg Tablet 40 MG PO (11:07)
[2022-04-21] MEDS: ondansetron 4 MG Tablet 8 MG PO (11:08)
[2022-04-21] MEDS: bortezomib 3.5 mg SDV 2.8 MG SUBCUT (12:30)
--- NOTE | 2022-04-28 15:00 | USCV_ITS ---
Chris Lugo Age: 66 Gender: M : 1955 Exam Date: 04/28/2022 10:51 Ordering Phys: Amy Pisano NP Technologist: AGNES Exam Location: [facility] [place]ication: Left leg swelling HISTORY: Lower extremity swelling. PROCEDURES: Venous duplex imaging was performed in only the left lower extremity. The following venous structures were evaluated: common femoral vein, profunda vein, proximal portion of the greater saphenous vein, superficial femoral vein, and the popliteal vein. In addition, the posterior tibial and peroneal trunk were evaluated. FINDINGS: Normal 2-D Doppler and augmentation and compressibility throughout the lower extremity venous structures. Additional imaging through the proximal calf veins also reveals no thrombus. Limited evaluation of the greater saphenous vein is patent with no thrombus.. CONCLUSIONS No evidence of left lower extremity DVT. Tony Ortiz MD (Electronically Signed) Final Date: 28 April 2022 12:49 S
[2022-05-05 08:06] LABS: Basophils # 0.1 10^3/uL (0.0-0.1); Basophils % 1.8 %; Eosinophils # 0.1 10^3/uL (0.0-0.8); Eosinophils % 1.6 %; Hematocrit 28.4 % (42.0-52.0); Hemoglobin 9.3 g/dL (11.7-16.6); Lymphocytes # 1.9 10^3/uL (0.8-4.8); Lymphocytes % 42.2 %; Mean Corpuscular HGB Conc 32.7 g/dL (30.0-36.0); Mean Corpuscular Hemoglobin 34.2 pg (28.0-34.0); Mean Corpuscular Volume 104.4 fl (80-94); Mean Platelet Volume 9.3 fL (7.4-10.4); Monocytes # 0.8 10^3/uL (0.2-0.9); Monocytes % 17.5 %; Neutrophils # 1.62 10^3/uL (1.8-7.7); Neutrophils % 36.2 %; Nucleated Red Blood Cells % 0 %; Platelet Count 245 10^3/cmm (130-400); Red Blood Count 2.72 10^6/uL (4.1-5.3); Red Cell Distribution Width 16.1 % (12.1-15.1); White Blood Count 4.5 10^3/uL (4.0-10.0)
[2022-05-05 08:26] LABS: Alanine Aminotransferase 12 U/L (0-41); Albumin Level 3.3 g/dL (3.5-5.2); Alkaline Phosphatase 110 IU/L (40-130); Anion Gap 12.6 (5-19); Aspartate Amino Transferase 10 U/L (0-40); Blood Urea Nitrogen 15 mg/dL (8-23); Calcium 8.1 mg/dL (8.5-10.5); Carbon Dioxide 24 mmol/L (22-29); Chloride 102 mmol/L (98-107); Globulin 4.4 g/dL (1.3-4.6); Glomerular Filtration Rate 75.2 mL/min (90-130); Glucose 98 mg/dL (65-115); Osmolality Calculated 279 mOsm/kg (285-295); Potassium 4.6 mmol/L (3.5-5.1); Sodium 134 mmol/L (136-145); Total Bilirubin 0.4 mg/dL (0.15-1.2); Total Protein 7.7 g/dL (6.6-8.7)
[2022-05-05 09:55] VITALS: BP 117/60; PULSE 75; RESP 18; TEMP 37.3; O2SAT 98
[2022-05-05] MEDS: dexamethasone 4 mg Tablet 40 MG PO (10:15)
[2022-05-05] MEDS: ondansetron 4 MG Tablet 8 MG PO (10:16)
[2022-05-05] MEDS: bortezomib 3.5 mg SDV 2.8 MG SUBCUT (10:32)
[2022-05-05 10:50] VITALS: BP 151/78; PULSE 74; RESP 18; TEMP 37.3; O2SAT 98
[2022-05-12 08:12] LABS: Basophils % 0.9 %; Eosinophils # 0.1 10^3/uL (0.0-0.8); Hematocrit 30.2 % (42.0-52.0); Hemoglobin 9.7 g/dL (11.7-16.6); Lymphocytes # 1.3 10^3/uL (0.8-4.8); Lymphocytes % 37.9 %; Mean Corpuscular HGB Conc 32.1 g/dL (30.0-36.0); Mean Corpuscular Hemoglobin 33.9 pg (28.0-34.0); Mean Corpuscular Volume 105.6 fl (80-94); Mean Platelet Volume 10.9 fL (7.4-10.4); Monocytes # 0.2 10^3/uL (0.2-0.9); Monocytes % 6.6 %; Neutrophils # 1.69 10^3/uL (1.8-7.7); Neutrophils % 48.9 %; Nucleated Red Blood Cells % 0 %; Platelet Count 134 10^3/cmm (130-400); Red Blood Count 2.86 10^6/uL (4.1-5.3); Red Cell Distribution Width 16.6 % (12.1-15.1); White Blood Count 3.5 10^3/uL (4.0-10.0)
[2022-05-12 08:35] LABS: Alanine Aminotransferase 14 U/L (0-41); Albumin Level 3.3 g/dL (3.5-5.2); Alkaline Phosphatase 102 IU/L (40-130); Anion Gap 12.6 (5-19); Aspartate Amino Transferase 14 U/L (0-40); Blood Urea Nitrogen 12 mg/dL (8-23); Calcium 8.3 mg/dL (8.5-10.5); Carbon Dioxide 25 mmol/L (22-29); Chloride 103 mmol/L (98-107); Globulin 3.7 g/dL (1.3-4.6); Glomerular Filtration Rate 97.3 mL/min (90-130); Glucose 107 mg/dL (65-115); Osmolality Calculated 282 mOsm/kg (285-295); Potassium 4.6 mmol/L (3.5-5.1); Sodium 136 mmol/L (136-145); Total Bilirubin 0.3 mg/dL (0.15-1.2)
[2022-05-12 09:09] VITALS: BMI 29.0
[2022-05-12] MEDS: ondansetron 4 MG Tablet 8 MG PO (09:16)
[2022-05-12] MEDS: dexamethasone 4 mg Tablet 40 MG PO (09:17)
[2022-05-12] MEDS: bortezomib 3.5 mg SDV 2.8 MG SUBCUT (09:38)
[2022-05-12 09:45] VITALS: BP 122/63; PULSE 70; RESP 18; TEMP 36.3; O2SAT 100
[2022-05-19 08:36] LABS: Basophils % 0.6 %; Eosinophils # 0.2 10^3/uL (0.0-0.8); Eosinophils % 5.8 %; Hematocrit 28.4 % (42.0-52.0); Hemoglobin 9.3 g/dL (11.7-16.6); Lymphocytes # 1.6 10^3/uL (0.8-4.8); Lymphocytes % 51.9 %; Mean Corpuscular HGB Conc 32.7 g/dL (30.0-36.0); Mean Corpuscular Hemoglobin 33.9 pg (28.0-34.0); Mean Corpuscular Volume 103.6 fl (80-94); Mean Platelet Volume 11.7 fL (7.4-10.4); Monocytes # 0.3 10^3/uL (0.2-0.9); Monocytes % 8.3 %; Neutrophils # 1.02 10^3/uL (1.8-7.7); Neutrophils % 32.8 %; Nucleated Red Blood Cells % 0 %; Platelet Count 138 10^3/cmm (130-400); Red Blood Count 2.74 10^6/uL (4.1-5.3); Red Cell Distribution Width 16.3 % (12.1-15.1); White Blood Count 3.1 10^3/uL (4.0-10.0)
[2022-05-19 08:55] LABS: Alanine Aminotransferase 18 U/L (0-41); Albumin Level 3.2 g/dL (3.5-5.2); Alkaline Phosphatase 102 IU/L (40-130); Anion Gap 12.3 (5-19); Aspartate Amino Transferase 13 U/L (0-40); Blood Urea Nitrogen 17 mg/dL (8-23); Calcium 7.9 mg/dL (8.5-10.5); Carbon Dioxide 24 mmol/L (22-29); Chloride 104 mmol/L (98-107); Globulin 3.4 g/dL (1.3-4.6); Glomerular Filtration Rate 75.2 mL/min (90-130); Glucose 83 mg/dL (65-115); Osmolality Calculated 283 mOsm/kg (285-295); Potassium 4.3 mmol/L (3.5-5.1); Sodium 136 mmol/L (136-145); Total Bilirubin 0.2 mg/dL (0.15-1.2); Total Protein 6.6 g/dL (6.6-8.7)
[2022-05-19 09:17] LABS: Slide Review Slide Review Perform
[2022-05-19] MEDS: dexamethasone 4 mg Tablet 40 MG PO (10:22)
[2022-05-19] MEDS: ondansetron 4 MG Tablet 8 MG PO (10:22)
[2022-05-19] MEDS: bortezomib 3.5 mg SDV 2.8 MG SUBCUT (11:34)
== END 2022-05-19 23:59 | disposition home or self-care (01) ==
PROVIDERS: Internal Medicine Medical Oncology; PCP Family Medicine; Visit Provider Nurse Practitioner Family
DX: Z51.11 Encounter for antineoplastic chemotherapy (principal); C90.00 Multiple myeloma not having achieved remission
CPT/HCPCS: 36415; 80053; 82784; 83883; 84155; 84165; 85025; 93971; 96401; 96402; 99214; J8540; J9041; Q0162

== ENCOUNTER 2022-06-16 08:00 | Oncology outpatient (recurring) (ONCR) | payer MEDICAID, SELFPAY ==
[2022-05-26 08:45] LABS: Basophils % 0.5 %; Eosinophils # 0.1 10^3/uL (0.0-0.8); Eosinophils % 2.1 %; Hematocrit 31.1 % (42.0-52.0); Hemoglobin 10.3 g/dL (11.7-16.6); Lymphocytes # 3.2 10^3/uL (0.8-4.8); Mean Corpuscular HGB Conc 33.1 g/dL (30.0-36.0); Mean Corpuscular Hemoglobin 34.7 pg (28.0-34.0); Mean Corpuscular Volume 104.7 fl (80-94); Mean Platelet Volume 10.8 fL (7.4-10.4); Monocytes # 0.9 10^3/uL (0.2-0.9); Monocytes % 16.1 %; Neutrophils # 1.41 10^3/uL (1.8-7.7); Neutrophils % 24.6 %; Nucleated Red Blood Cells % 0 %; Platelet Count 190 10^3/cmm (130-400); Red Blood Count 2.97 10^6/uL (4.1-5.3); White Blood Count 5.8 10^3/uL (4.0-10.0)
[2022-05-26 09:09] LABS: Alanine Aminotransferase 15 U/L (0-41); Albumin Level 3.4 g/dL (3.5-5.2); Alkaline Phosphatase 118 IU/L (40-130); Anion Gap 14.8 (5-19); Aspartate Amino Transferase 13 U/L (0-40); Blood Urea Nitrogen 16 mg/dL (8-23); Calcium 8.6 mg/dL (8.5-10.5); Carbon Dioxide 25 mmol/L (22-29); Chloride 102 mmol/L (98-107); Globulin 3.5 g/dL (1.3-4.6); Glomerular Filtration Rate 97.3 mL/min (90-130); Glucose 96 mg/dL (65-115); Osmolality Calculated 285 mOsm/kg (285-295); Potassium 4.8 mmol/L (3.5-5.1); Sodium 137 mmol/L (136-145); Total Bilirubin 0.3 mg/dL (0.15-1.2); Total Protein 6.9 g/dL (6.6-8.7)
--- NOTE | 2022-05-26 10:29 | PC.NURSE ---
Discussed lab results with Dr. Vides, and called patient to inform him of lab results. He follows up with Dr. Vides next week, and will call in the meantime with any questions or concerns. felice
[2022-06-02 09:01] LABS: Basophils # 0.1 10^3/uL (0.0-0.1); Basophils % 0.8 %; Eosinophils # 0.1 10^3/uL (0.0-0.8); Eosinophils % 1.4 %; Hemoglobin 10.8 g/dL (11.7-16.6); Lymphocytes # 3.3 10^3/uL (0.8-4.8); Mean Corpuscular HGB Conc 31.8 g/dL (30.0-36.0); Mean Corpuscular Hemoglobin 34.5 pg (28.0-34.0); Mean Corpuscular Volume 108.6 fl (80-94); Mean Platelet Volume 9.5 fL (7.4-10.4); Monocytes # 0.6 10^3/uL (0.2-0.9); Monocytes % 7.9 %; Neutrophils # 2.88 10^3/uL (1.8-7.7); Neutrophils % 39.2 %; Nucleated Red Blood Cells % 0 %; Platelet Count 361 10^3/cmm (130-400); Red Blood Count 3.13 10^6/uL (4.1-5.3); Red Cell Distribution Width 17.8 % (12.1-15.1); White Blood Count 7.3 10^3/uL (4.0-10.0)
[2022-06-02 09:19] LABS: Slide Review Slide Review Perform
[2022-06-02 09:26] LABS: Alanine Aminotransferase 16 U/L (0-41); Albumin Level 3.7 g/dL (3.5-5.2); Alkaline Phosphatase 116 IU/L (40-130); Anion Gap 13.5 (5-19); Aspartate Amino Transferase 14 U/L (0-40); Blood Urea Nitrogen 16 mg/dL (8-23); Calcium 8.6 mg/dL (8.5-10.5); Carbon Dioxide 26 mmol/L (22-29); Chloride 102 mmol/L (98-107); Globulin 3.7 g/dL (1.3-4.6); Glucose 95 mg/dL (65-115); Immunoglobulin IGG 1529 mg/dL (700-1600); Osmolality Calculated 285 mOsm/kg (285-295); Potassium 4.5 mmol/L (3.5-5.1); Sodium 137 mmol/L (136-145); Total Bilirubin 0.3 mg/dL (0.15-1.2); Total Protein 7.4 g/dL (6.6-8.7)
[2022-06-02 10:07] LABS: Immunoglobulin IGA < 50 mg/dL (70-400); Immunoglobulin IGM < 25 mg/dL (40-230)
[2022-06-02] MEDS: dexamethasone 4 mg Tablet 40 MG PO (11:07)
[2022-06-02] MEDS: ondansetron 4 MG Tablet 8 MG PO (11:07)
[2022-06-02] MEDS: bortezomib 3.5 mg SDV 2.8 MG SUBCUT (11:48)
[2022-06-03 12:27] LABS: PROTEIN, TOTAL 6.8 g/dL (6.1-8.1)
[2022-06-03 13:37] LABS: KAPPA LIGHT CHAIN, FREE, SERUM 103.3 mg/L (3.3-19.4); KAPPA/LAMBDA LIGHT CHAINS FREE 12.45 (0.26-1.65); LAMBDA LIGHT CHAIN, FREE, SERU 8.3 mg/L (5.7-26.3)
[2022-06-03 16:53] LABS: ABNORMAL PROTEIN BAND 1 1.4 g/dL (NONE DETECTED); ALBUMIN 3.3 g/dL (3.8-4.8); ALPHA 1 GLOBULIN 0.4 g/dL (0.2-0.3); BETA 1 GLOBULIN 0.4 g/dL (0.4-0.6); BETA 2 GLOBULIN 0.3 g/dL (0.2-0.5); GAMMA GLOBULIN 1.5 g/dL (0.8-1.7)
[2022-06-09 08:40] LABS: Hematocrit 33.1 % (42.0-52.0); Hemoglobin 10.8 g/dL (11.7-16.6); Mean Corpuscular HGB Conc 32.6 g/dL (30.0-36.0); Mean Corpuscular Hemoglobin 34.2 pg (28.0-34.0); Mean Corpuscular Volume 104.7 fl (80-94); Mean Platelet Volume 11.2 fL (7.4-10.4); Platelet Count 207 10^3/cmm (130-400); Red Blood Count 3.16 10^6/uL (4.1-5.3); Red Cell Distribution Width 17.4 % (12.1-15.1)
[2022-06-09 09:22] LABS: Alanine Aminotransferase 20 U/L (0-41); Albumin Level 3.8 g/dL (3.5-5.2); Alkaline Phosphatase 105 IU/L (40-130); Aspartate Amino Transferase 17 U/L (0-40); Blood Urea Nitrogen 15 mg/dL (8-23); Calcium 8.6 mg/dL (8.5-10.5); Carbon Dioxide 25 mmol/L (22-29); Chloride 103 mmol/L (98-107); Globulin 3.1 g/dL (1.3-4.6); Glucose 98 mg/dL (65-115); Osmolality Calculated 287 mOsm/kg (285-295); Sodium 138 mmol/L (136-145); Total Bilirubin 0.3 mg/dL (0.15-1.2); Total Protein 6.9 g/dL (6.6-8.7)
[2022-06-09 09:28] LABS: Anion Gap 14.6 (5-19); Potassium 4.6 mmol/L (3.5-5.1)
[2022-06-09 10:04] LABS: Slide Review Slide Review Perform
[2022-06-09 10:05] LABS: Absolute Eosinophils 0.3 10^3/cmm (0.0-0.7); Absolute Neutrophil 3.8 10^3/cmm (1.4-6.5); Absolute Segmented Neutrophil 3.7 10/cmm (1.6-7.1); Band Neutrophils Absolute 0.1 10^3/cmm (0.0-1.2); Eosinophils 4 %; Lymphocytes 37 %; Monocytes Absolute 0.5 10^3/cmm (0.1-0.6); Platelet Estimate Normal (Normal); Segmented Neutrophils 46 %; Total Cells Counted 100 (0-100)
[2022-06-09] MEDS: dexamethasone 4 mg Tablet 40 MG PO (10:13)
[2022-06-09] MEDS: ondansetron 4 MG Tablet 8 MG PO (10:14)
[2022-06-09 10:19] VITALS: BP 115/69; PULSE 78; RESP 18; TEMP 37.1; O2SAT 99
[2022-06-09] MEDS: bortezomib 3.5 mg SDV 2.8 MG SUBCUT (10:35)
[2022-06-16 08:19] LABS: Basophils % 0.3 %; Eosinophils # 0.2 10^3/uL (0.0-0.8); Eosinophils % 2.8 %; Hematocrit 31.4 % (42.0-52.0); Hemoglobin 10.5 g/dL (11.7-16.6); Lymphocytes # 2.4 10^3/uL (0.8-4.8); Lymphocytes % 33.5 %; Mean Corpuscular HGB Conc 33.4 g/dL (30.0-36.0); Mean Corpuscular Hemoglobin 34.8 pg (28.0-34.0); Mean Platelet Volume 11.3 fL (7.4-10.4); Monocytes # 1.1 10^3/uL (0.2-0.9); Monocytes % 15.2 %; Neutrophils # 3.27 10^3/uL (1.8-7.7); Neutrophils % 46.4 %; Nucleated Red Blood Cells % 0 %; Platelet Count 152 10^3/cmm (130-400); Red Blood Count 3.02 10^6/uL (4.1-5.3); Red Cell Distribution Width 17.1 % (12.1-15.1); White Blood Count 7.1 10^3/uL (4.0-10.0)
[2022-06-16 08:57] LABS: Alanine Aminotransferase 12 U/L (0-41); Albumin Level 3.4 g/dL (3.5-5.2); Alkaline Phosphatase 107 IU/L (40-130); Anion Gap 14.2 (5-19); Aspartate Amino Transferase 9 U/L (0-40); Blood Urea Nitrogen 16 mg/dL (8-23); Calcium 8.5 mg/dL (8.5-10.5); Carbon Dioxide 24 mmol/L (22-29); Chloride 103 mmol/L (98-107); Globulin 3.2 g/dL (1.3-4.6); Glucose 92 mg/dL (65-115); Osmolality Calculated 285 mOsm/kg (285-295); Potassium 4.2 mmol/L (3.5-5.1); Sodium 137 mmol/L (136-145); Total Bilirubin 0.4 mg/dL (0.15-1.2); Total Protein 6.6 g/dL (6.6-8.7)
[2022-06-16] MEDS: dexamethasone 4 mg Tablet 40 MG PO (09:56)
[2022-06-16] MEDS: ondansetron 4 MG Tablet 8 MG PO (09:57)
[2022-06-16 10:02] VITALS: BP 112/71; PULSE 78; RESP 18; TEMP 37.1; O2SAT 99
[2022-06-16 10:25] VITALS: BP 147/68; PULSE 74; RESP 18; TEMP 36.9; O2SAT 98
[2022-06-16] MEDS: bortezomib 3.5 mg SDV 2.8 MG SUBCUT (10:25)
== END 2022-06-19 23:59 | disposition home or self-care (01) ==
PROVIDERS: Internal Medicine Medical Oncology; PCP Family Medicine; Visit Provider Nurse Practitioner Family
DX: Z51.11 Encounter for antineoplastic chemotherapy (principal); C90.00 Multiple myeloma not having achieved remission; Z79.52 Long term (current) use of systemic steroids
CPT/HCPCS: 36415; 80053; 82784; 83883; 84155; 84165; 85007; 85025; 96372; 96401; 96402; 99214; 99215; J8540; J9041; Q0162

== ENCOUNTER 2022-07-20 08:30 | Oncology outpatient (recurring) (ONCR) | payer MEDICAID, SELFPAY ==
[2022-06-23 08:19] LABS: Basophils % 0.2 %; Eosinophils # 0.2 10^3/uL (0.0-0.8); Eosinophils % 4.1 %; Hematocrit 32.7 % (42.0-52.0); Hemoglobin 10.6 g/dL (11.7-16.6); Lymphocytes # 2.1 10^3/uL (0.8-4.8); Lymphocytes % 47.9 %; Mean Corpuscular HGB Conc 32.4 g/dL (30.0-36.0); Mean Corpuscular Hemoglobin 35.3 pg (28.0-34.0); Mean Platelet Volume 11.2 fL (7.4-10.4); Monocytes # 0.6 10^3/uL (0.2-0.9); Monocytes % 14.4 %; Neutrophils # 1.32 10^3/uL (1.8-7.7); Neutrophils % 29.8 %; Nucleated Red Blood Cells % 0 %; Platelet Count 145 10^3/cmm (130-400); Red Cell Distribution Width 16.9 % (12.1-15.1); White Blood Count 4.4 10^3/uL (4.0-10.0)
[2022-06-23 08:51] LABS: Alanine Aminotransferase 15 U/L (0-41); Albumin Level 3.3 g/dL (3.5-5.2); Alkaline Phosphatase 101 IU/L (40-130); Anion Gap 12.8 (5-19); Aspartate Amino Transferase 12 U/L (0-40); Blood Urea Nitrogen 16 mg/dL (8-23); Calcium 8.5 mg/dL (8.5-10.5); Carbon Dioxide 25 mmol/L (22-29); Chloride 105 mmol/L (98-107); Globulin 3.1 g/dL (1.3-4.6); Glucose 91 mg/dL (65-115); Immunoglobulin IGA 50 mg/dL (70-400); Immunoglobulin IGG 1155 mg/dL (700-1600); Immunoglobulin IGM 25 mg/dL (40-230); Osmolality Calculated 287 mOsm/kg (285-295); Potassium 4.8 mmol/L (3.5-5.1); Sodium 138 mmol/L (136-145); Total Bilirubin 0.3 mg/dL (0.15-1.2); Total Protein 6.4 g/dL (6.6-8.7)
[2022-06-24 10:07] LABS: PROTEIN, TOTAL 6.1 g/dL (6.1-8.1)
[2022-06-24 12:22] LABS: KAPPA LIGHT CHAIN, FREE, SERUM 46.4 mg/L (3.3-19.4); KAPPA/LAMBDA LIGHT CHAINS FREE 5.46 (0.26-1.65); LAMBDA LIGHT CHAIN, FREE, SERU 8.5 mg/L (5.7-26.3)
[2022-06-24 15:23] LABS: ABNORMAL PROTEIN BAND 1 1.1 g/dL (NONE DETECTED); ALPHA 1 GLOBULIN 0.4 g/dL (0.2-0.3); ALPHA 2 GLOBULIN 0.9 g/dL (0.5-0.9); BETA 1 GLOBULIN 0.4 g/dL (0.4-0.6); BETA 2 GLOBULIN 0.2 g/dL (0.2-0.5); GAMMA GLOBULIN 1.2 g/dL (0.8-1.7)
[2022-06-30 09:15] LABS: Basophils % 0.4 %; Eosinophils # 0.1 10^3/uL (0.0-0.8); Eosinophils % 1.3 %; Hematocrit 33.3 % (42.0-52.0); Hemoglobin 10.4 g/dL (11.7-16.6); Lymphocytes # 2.6 10^3/uL (0.8-4.8); Lymphocytes % 35.2 %; Mean Corpuscular HGB Conc 31.2 g/dL (30.0-36.0); Mean Corpuscular Hemoglobin 34.4 pg (28.0-34.0); Mean Corpuscular Volume 110.3 fl (80-94); Mean Platelet Volume 9.4 fL (7.4-10.4); Monocytes # 1.3 10^3/uL (0.2-0.9); Monocytes % 17.1 %; Neutrophils # 3.24 10^3/uL (1.8-7.7); Neutrophils % 43.6 %; Nucleated Red Blood Cells % 0 %; Platelet Count 292 10^3/cmm (130-400); Red Blood Count 3.02 10^6/uL (4.1-5.3); White Blood Count 7.4 10^3/uL (4.0-10.0)
[2022-06-30 09:31] LABS: Alanine Aminotransferase 12 U/L (0-41); Albumin Level 3.6 g/dL (3.5-5.2); Alkaline Phosphatase 106 IU/L (40-130); Anion Gap 11.7 (5-19); Aspartate Amino Transferase 13 U/L (0-40); Blood Urea Nitrogen 20 mg/dL (8-23); Calcium 8.7 mg/dL (8.5-10.5); Carbon Dioxide 27 mmol/L (22-29); Chloride 105 mmol/L (98-107); Globulin 2.9 g/dL (1.3-4.6); Glomerular Filtration Rate 97.3 mL/min (90-130); Glucose 101 mg/dL (65-115); Osmolality Calculated 291 mOsm/kg (285-295); Potassium 4.7 mmol/L (3.5-5.1); Sodium 139 mmol/L (136-145); Total Bilirubin 0.3 mg/dL (0.15-1.2); Total Protein 6.5 g/dL (6.6-8.7)
[2022-06-30] MEDS: dexamethasone 4 mg Tablet 40 MG PO (10:19)
[2022-06-30] MEDS: ondansetron 4 MG Tablet 8 MG PO (10:19)
[2022-06-30] MEDS: bortezomib 3.5 mg SDV 2.9 MG SUBCUT (10:31)
[2022-06-30 10:40] VITALS: BP 119/74; PULSE 77; RESP 18; TEMP 36.9; O2SAT 99
[2022-07-07] MEDS: dexamethasone 4 mg Tablet 40 MG PO (09:03)
[2022-07-07] MEDS: ondansetron 4 MG Tablet 8 MG PO (09:04)
[2022-07-07] MEDS: bortezomib 3.5 mg SDV 2.9 MG SUBCUT (09:27)
[2022-07-14 09:27] VITALS: BMI 31.8
[2022-07-14] MEDS: dexamethasone 4 mg Tablet 40 MG PO (09:36)
[2022-07-14] MEDS: ondansetron 4 MG Tablet 8 MG PO (09:37)
[2022-07-14] MEDS: bortezomib 3.5 mg SDV 2.9 MG SUBCUT (10:12)
[2022-07-14 10:20] VITALS: BP 125/68; PULSE 73; RESP 18; TEMP 36.4; O2SAT 97
[2022-07-20 09:04] LABS: Basophils % 0.4 %; Eosinophils # 0.2 10^3/uL (0.0-0.8); Eosinophils % 3.3 %; Hemoglobin 10.6 g/dL (11.7-16.6); Lymphocytes # 1.6 10^3/uL (0.8-4.8); Lymphocytes % 33.3 %; Mean Corpuscular HGB Conc 32.1 g/dL (30.0-36.0); Mean Corpuscular Hemoglobin 34.5 pg (28.0-34.0); Mean Corpuscular Volume 107.5 fl (80-94); Monocytes # 0.6 10^3/uL (0.2-0.9); Monocytes % 11.6 %; Neutrophils # 2.29 10^3/uL (1.8-7.7); Neutrophils % 46.7 %; Nucleated Red Blood Cells % 0.6 %; Platelet Count 138 10^3/cmm (130-400); Red Blood Count 3.07 10^6/uL (4.1-5.3); White Blood Count 4.9 10^3/uL (4.0-10.0)
[2022-07-20 09:41] LABS: Alanine Aminotransferase 17 U/L (0-41); Albumin Level 3.3 g/dL (3.5-5.2); Alkaline Phosphatase 91 U/L (40-130); Aspartate Amino Transferase 13 U/L (0-40); Blood Urea Nitrogen 18 mg/dL (8-23); Calcium 8.5 mg/dL (8.5-10.5); Carbon Dioxide 25 mmol/L (22-29); Chloride 104 mmol/L (98-107); Globulin 2.6 g/dL (1.3-4.6); Glomerular Filtration Rate 97.3 mL/min (90-130); Glucose 74 mg/dL (65-115); Osmolality Calculated 289 mOsm/kg (285-295); Sodium 139 mmol/L (136-145); Total Bilirubin 0.2 mg/dL (0.15-1.2); Total Protein 5.9 g/dL (6.6-8.7)
[2022-07-20 09:42] LABS: Anion Gap 14.4 (5-19); Potassium 4.4 mmol/L (3.5-5.1)
== END 2022-07-20 23:59 | disposition home or self-care (01) ==
PROVIDERS: Internal Medicine Medical Oncology; PCP Family Medicine; Visit Provider Nurse Practitioner Family
DX: C90.00 Multiple myeloma not having achieved remission (principal)
CPT/HCPCS: 36415; 80053; 82784; 83883; 84155; 84165; 85025; 96401; 96402; 99214; 99215; J8540; J9041; Q0162

== ENCOUNTER 2022-08-21 20:25 | Emergency (ER) | payer MEDICAID, SELFPAY ==
[2022-08-21 20:32] VITALS: BP 145/65; PULSE 100; RESP 16; TEMP 37.1; O2SAT 97
--- NOTE | 2022-08-21 20:56 | XRR_ITS ---
PROCEDURE INFORMATION: Exam: XR Chest Exam date and time: 08/21/2022 9:01 PM Age: 66 years old Clinical indication: Fever; Additional info: Fever, HX leukopenia. Cancer PT TECHNIQUE: Imaging protocol: Radiologic exam of the chest. Views: 1 view. COMPARISON: CR XR chest 2V* [id number] 07/29/2019 4:40 PM FINDINGS: Tubes, catheters and devices: Tunneled catheter in the right chest terminates mid SVC. Lungs: Unremarkable. No consolidation. Pleural spaces: Unremarkable. No pleural effusion. No pneumothorax. Heart/Mediastinum: Unremarkable. No cardiomegaly. Bones/joints: Unremarkable. XR/XR chest 1V portable [id number] IMPRESSION: Negative exam.
--- NOTE | 2022-08-21 21:00 | ED_ITS ---
HPI - Fever General: Chief Complaint: Fever Stated Complaint: fever; Oncology patient Time Seen by Provider: 08/21/22 20:40 Source: patient History of Present Illness: 66-year-old gentleman with a history of multiple myeloma and low white blood cell counts. He presents with a fever, of 101 at home. He is felt feverish today. He has been somewhat nauseated, with decreased appetite. No other specific symptoms. MD elicited complaint: fever Pertinent past history: other (Multiple myeloma) Onset (ago): hour(s) Context: other Associated symptoms: Reports chills and nausea; Deny abdominal pain, flank pain, chest pain, confusion, cough, headache(s), rhinorrhea, short of breath or vomiting Review of Systems Const: Reports: chills Card: Denies: chest pain Resp: Denies: dyspnea GI: Reports: nausea; Denies: abdominal pain or vomiting : Denies: flank pain Musc: Denies: neck pain Skin/Breast: Denies: rash Neuro: Denies: headache(s) or confusion PFSH ED PFSH: Medical History Chronic anxiety Essential hypertension Hypersomnia Mild acid reflux Multiple myeloma 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 Father Lung disease Lung cancer Other CAD (coronary artery disease) Cancer Diabetes Hypertension Denies family history of Clotting disorder Dementia Chronic kidney disease (CKD) Suicide Anesthesia complication Bleeding disorder Stroke Social History Smoking and tobacco status: former smoker Alcohol intake: current Alcohol intake frequency: holidays/special occasions only Physical Exam HENMT: COMMON NORMALS: normocephalic and atraumatic HEAD & SCALP: normocephalic and atraumatic Eye: COMMON NORMALS: Equal, round and reactive pupils present and EOMs intact bilaterally PUPIL: Yes Equal, round and reactive pupils present Neck/C-Spine: COMMON NORMALS: full ROM GENERAL: Yes trachea midline Chest: CHEST: Yes Symmetrical chest wall rise Resp: COMMON NORMALS: normal respiratory effort, No use of accessory muscles and clear to auscultation bilaterally AUSCULTATION: clear to auscultation bilaterally Cardio: COMMON NORMALS: regular rate and regular rhythm RATE: regular rate RHYTHM: regular rhythm GI: COMMON NORMALS: Normal to inspection, nondistended, normoactive bowel sounds present and Soft to palpation PALPATION: Yes Soft to palpation and No Tenderness to palpation present (GI) Extremity: COMMON NORMALS: normal to inspection Neuro: BINDU COMA SCALE: document GCS findings [place] coma scale eye ope myles: Spontaneous Bindu coma scale verbal response: Orientated Bindu coma scale motor response: Obey commands Bindu coma scale total score: 15 Psych: COMMON NORMALS: mental status grossly normal Course Vital Signs: Vital signs: Vital Signs Temperature 98.8 F 08/21/22 20:32 Pulse Rate 100 08/21/22 20:32 Respiratory Rate 16 08/21/22 20:32 Blood Pressure 145/65 08/21/22 20:32 Pulse Oximetry 97 08/21/22 20:32 Oxygen Delivery Me thod 08/21/22 20:32 MDM - Fever Medical Decision Making 66-year-old patient with a history of multiple myeloma. He is not leukopenic. On the contrary, he has a leukocytosis of 17.6 with a minimal shift. His hemoglobin is 11. Platelet count is normal. BMP is not remarkable. Liver enzymes are normal. His CRP is elevated. He has been having some mild suprapubic discomfort on and off he says. His urinalysis is positive for ur inary tract infection with too many to count white blood cells. He is given a dose of Rocephin IV here as well as being sent home on cefdinir. He will follow closely, and watch his temperature. He will let his oncologist know tomorrow. He knows to return if worsening. Lab Data : 08/21/22 21:05 08/21/22 21:05 Radiology Impressions Chest X-Ray 08/21/22 20:56 IMPRESSION: Negative exam. Laboratory Results WBC 17.6 10^3/uL (4.0-10.0) H 08/21/22 21:05 RBC 3.28 10^6/uL (4.1-5.3) L 08/21/22 21:05 Hgb 11.0 g/dL (11.7-16.6) L 08/21/22 21:05 Hct 34.3 % (42.0-52.0) L 08/21/22 21:05 MCV 104.6 fl (80-94) H 08/21/22 21:05 MCH 33.5 pg (28.0-34.0) 08/21/22 21:05 MCHC 32.1 g/dL (30.0-36.0) 08/21/22 21:05 RDW 14.7 % (12.1-15.1) 08/21/22 21:05 Plt Count 238 10^3/cmm (130-400) 08/21/22 21:05 MPV 9.6 fL (7.4-10.4) 08/21/22 21:05 Neut % (Auto) 80.7 % 08/21/22 21:05 Lymph % (Auto) 10.3 % 08/21/22 21:05 [place] % (Auto) 7.4 % 08/21/22 21:05 Eos % (Auto) 0.2 % 08/21/22 21:05 Baso % (Auto) 0.3 % 08/21/22 21:05 Neut # (Auto) 14.20 10^3/uL (1.8-7.7) H 08/21/22 21:05 Lymph # (Auto) 1.8 10^3/uL (0.8-4.8) 08/21/22 21:05 [place] # (Auto) 1.3 10^3/uL (0.2-0.9) H 08/21/22 21:05 Eos # (Auto) 0.0 10^3/uL (0.0-0.8) 08/21/22 21:05 Baso # (Auto) 0.1 10^3/uL (0.0-0.1) 08/21/22 21:05 Nucleated RBC % (auto) 0 % 08/21/22 21:05 Nucleated RBCs # 0.0 /100WBC 08/21/22 21:05 Sodium 135 mmol/L (136-145) L 08/21/22 21:05 Potassium 3.7 mmol/L (3.5-5.1) 08/21/22 21:05 Chloride 101 mmol/L (98-107) 08/21/22 21:05 Carbon Dioxide 24 mmol/L (22-29) 08/21/22 21:05 Anion Gap 13.7 (5-19) 08/21/22 21:05 BUN 9 mg/dL (8-23) 08/21/22 21:05 Creatinine 0.8 mg/dL (0.7-1.2) 08/21/22 21:05 GFR Calculation 97.3 mL/min (90-130) 08/21/22 21:05 Glucose 117 mg/dL (65-115) H 08/21/22 21:05 Calculated Osmolality 280 mOsm/kg (285-295) L 08/21/22 21:05 Lactate 1.1 mmol/L (0.5-2.2) 08/21/22 21:05 Calcium 8.8 mg/dL (8.5-10.5) 08/21/22 21:05 Total Bilirubin 0.5 mg/dL (0.15-1.2) 08/21/22 21:05 AST 15 U/L (0-40) 08/21/22 21:05 ALT 16 U/L (0-41) 08/21/22 21:05 Alkaline Phosphatase 145 U/L (40-130) H 08/21/22 21:05 C-Reactive Protein 90.7 mg/L (0.0-4.9) H 08/21/22 21:05 Total Protein 7.3 g/dL (6.6-8.7) 08/21/22 21:05 Albumin 3.5 g/dL (3.5-5.2) 08/21/22 21:05 Globulin 3.8 g/dL (1.3-4.6) 08/21/22 21:05 Procalcitonin 0.18 ng/mL (0-0.5) 08/21/22 21:05 Urine Color Yellow (Yellow) 08/21/22:45 Urine Appearance Cloudy (CLEAR) 08/21/22:45 Urine pH 5.5 (5-7) 08/21/22 21:45 Ur Specific [place] 1.025 (1.005-1.030) 08/21/22:45 Urine Protein 2+ 08/21/22:45 Urine Glucose (UA) Negative (Normal) 08/21/22 21:45 Urine Ketones Negative (Negative) 08/21/22 21:45 Urine Blood Trace-intact (Negative) A 08/21/22 21:45 Urine Nitrate Positive 08/21/22 21:45 Urine Bilirubin Negative (Negative) 08/21/22 21:45 Urine Urobilinogen 0.2 mg/dL (Negative) 08/21/22 21:45 Ur Leukocyte Esterase 1+ (Negative) A 08/21/22 21:45 Urine RBC 0-4 /hpf (0-2) H 08/21/22 21:45 Urine WBC Too numerous to cnt /hpf (0-5) H 08/21/22 21:45 Ur Squamous Epith Cells 0-4 /hpf (0-5) H 08/21/22 21:45 Amorphous Sediment Not Reportable 08/21/22 21:45 Urine Bacteria 4+ /hpf (NONE) H 08/21/22 21:45 Discharge Plan Discharge Patient Disposition: Home Clinical Impression: Urinary tract infection Condition: Stable Prescriptions: New cefdinir 300 mg capsule 300 mg PO BID Qty: 14 0RF Discontinued amoxicillin 875 mg tablet 875 mg PO BID Qty: 14 0RF No Action carboxymethylcellulose sodium [Refresh Tears] 0.5 % drops 1 drp ophthalmic (eye) QID Opcon-A 0.04270-6.315 % drops 2 drp ophthalmic (eye) QID cholecalciferol (vitamin D3) 25 mcg (1,000 unit) tablet,chewable 50 mcg PO DAILY fluticasone propionate [Flonase Allergy Relief] 50 mcg/actuation spray,suspension 2 spray INTRANASAL DAILY 90 Days Qty: 16 5RF Rx Instructions: Please dispense a 90 day supply dexamethasone 4 mg tablet 40 mg PO .COMPLEX Qty: 10 5RF Rx Instructions: 40 mg PO once monthly on off week of treatment; levocetirizine [Xyzal] 5 mg tablet 5 mg PO DAILY Qty: 90 1RF omeprazole 20 mg capsule,delayed release(DR/EC) 20 mg PO DAILY Qty: 90 1RF enalapril maleate 10 mg tablet 10 mg PO DAILY Qty: 90 1RF psyllium Packet 1 packet PO BID Rx Instructions: mix into at least 8 oz of water or juice before administering Diflucan 100 mg Tablet 100 mg PO DAILY Qty: 90 2RF Rx Instructions: For fungal infection prevention. Compazine 10 mg Tablet 10 mg PO Q4H PRN (Reason: Mild Nausea) Qty: 30 3RF valacyclovir 500 mg Tablet 500 mg PO BID Qty: 60 5RF Rx Instructions: Continue 3 months post treatment for prevention of viral infection. Ecotrin 325 mg Tablet,Delayed Release (Dr/Ec) 325 mg PO DAILY Qty: 30 4RF lorazepam 1 mg Tablet 0.5 - 1 mg PO Q6H PRN (Reason: Severe Nausea) Qty: 30 3RF Discharge Orders: Discharge ED (Routine); Ordered 08/21/22 Ordered By: Homer Bello Referrals: Debbie King DO [Primary Care Provider] - Chris Vides MD [Hospitalist] - 1-3 days Patient Instructions: Urinary Tract Infection in Men (ED), Opioid Safety, Pain Management Activity Restrictions/Additional Instructions: Return for continued fever despite 2-3 doses of antibiotics, worsening mental status, shortness of breath, lethargy, any other concerning symptoms. Stay hydrated. Coding Level of Care Code ED Copy Lathe Operator for Alexanderg Fwd Exam Comprehensive
[2022-08-21 21:12] LABS: Basophils # 0.1 10^3/uL (0.0-0.1); Basophils % 0.3 %; Eosinophils % 0.2 %; Hematocrit 34.3 % (42.0-52.0); Lymphocytes # 1.8 10^3/uL (0.8-4.8); Lymphocytes % 10.3 %; Mean Corpuscular HGB Conc 32.1 g/dL (30.0-36.0); Mean Corpuscular Hemoglobin 33.5 pg (28.0-34.0); Mean Corpuscular Volume 104.6 fl (80-94); Mean Platelet Volume 9.6 fL (7.4-10.4); Monocytes # 1.3 10^3/uL (0.2-0.9); Monocytes % 7.4 %; Neutrophils % 80.7 %; Nucleated Red Blood Cells % 0 %; Platelet Count 238 10^3/cmm (130-400); Red Blood Count 3.28 10^6/uL (4.1-5.3); Red Cell Distribution Width 14.7 % (12.1-15.1); White Blood Count 17.6 10^3/uL (4.0-10.0)
[2022-08-21 21:30] LABS: Lactate (Lactic Acid level) 1.1 mmol/L (0.5-2.2)
[2022-08-21 21:31] LABS: Alanine Aminotransferase 16 U/L (0-41); Albumin Level 3.5 g/dL (3.5-5.2); Alkaline Phosphatase 145 U/L (40-130); Anion Gap 13.7 (5-19); Aspartate Amino Transferase 15 U/L (0-40); Blood Urea Nitrogen 9 mg/dL (8-23); C Reactive Protein 90.7 mg/L (0.0-4.9); Calcium 8.8 mg/dL (8.5-10.5); Carbon Dioxide 24 mmol/L (22-29); Chloride 101 mmol/L (98-107); Globulin 3.8 g/dL (1.3-4.6); Glomerular Filtration Rate 97.3 mL/min (90-130); Glucose 117 mg/dL (65-115); Osmolality Calculated 280 mOsm/kg (285-295); Potassium 3.7 mmol/L (3.5-5.1); Sodium 135 mmol/L (136-145); Total Bilirubin 0.5 mg/dL (0.15-1.2); Total Protein 7.3 g/dL (6.6-8.7)
[2022-08-21 21:38] LABS: Procalcitonin 0.18 ng/mL (0-0.5)
[2022-08-21 22:01] LABS: Bilirubin Urine Negative (Negative); Blood Urine Trace-intact (Negative); Glucose Urine UA Negative (Normal); Ketones Urine Negative (Negative); Leukocyte Esterase Urine 1+ (Negative); Nitrate Urine Positive; Protein Urine 2+; Specific Gravity, Urine 1.025 (1.005-1.030); Urine Appearance Cloudy (CLEAR); Urine Color Yellow (Yellow); Urobilinogen Urine 0.2 mg/dL (Negative); pH Urine 5.5 (5-7)
[2022-08-21 22:07] LABS: Add Urine Microscopic? YES
[2022-08-21 22:14] LABS: Add Urine Culture? Yes; Bacteria Urine 4+ /hpf; RBC Urine 0-4 /hpf (0-2); Squamous Epithelial Cell Urine 0-4 /hpf (0-5); WBC Urine TOO NUMEROUS TO CNT /hpf (0-5)
[2022-08-21] MEDS: cefTRIAXone 1,000 MG in sodium chloride 0.9% (plus) 50 ML 100 MG IV (22:20)
== END 2022-08-21 23:13 | disposition home or self-care (01) ==
PROVIDERS: Emergency Provider Emergency Medicine; PCP Family Medicine
DX: N39.0 Urinary tract infection, site not specified (principal); Z87.891 Personal history of nicotine dependence; I10 Essential (primary) hypertension
CPT/HCPCS: 36415; 71045; 80053; 81001; 83605; 84145; 85025; 86140; 87040; 87077; 87086; 87186; 96365; 99284; J0696

== ENCOUNTER 2022-11-02 09:48 | Oncology outpatient (recurring) (ONCR) | payer MEDICARE, MEDICAID, SELFPAY ==
[2022-11-02 10:18] LABS: Basophils # 0.1 10^3/uL (0.0-0.1); Eosinophils # 0.2 10^3/uL (0.0-0.8); Eosinophils % 2.6 %; Hematocrit 35.9 % (42.0-52.0); Hemoglobin 11.6 g/dL (11.7-16.6); Lymphocytes # 3.6 10^3/uL (0.8-4.8); Mean Corpuscular HGB Conc 32.3 g/dL (30.0-36.0); Mean Corpuscular Hemoglobin 32.4 pg (28.0-34.0); Mean Corpuscular Volume 100.3 fl (80-94); Mean Platelet Volume 9.1 fL (7.4-10.4); Monocytes # 0.5 10^3/uL (0.2-0.9); Neutrophils # 1.44 10^3/uL (1.8-7.7); Neutrophils % 25.1 %; Nucleated Red Blood Cells % 0 %; Platelet Count 179 10^3/cmm (130-400); Red Blood Count 3.58 10^6/uL (4.1-5.3); Red Cell Distribution Width 16.4 % (12.1-15.1); White Blood Count 5.8 10^3/uL (4.0-10.0)
[2022-11-02 10:40] LABS: Alanine Aminotransferase 24 U/L (0-41); Alkaline Phosphatase 130 U/L (40-130); Anion Gap 12.8 (5-19); Aspartate Amino Transferase 25 U/L (0-40); Blood Urea Nitrogen 13 mg/dL (8-23); Calcium 8.9 mg/dL (8.5-10.5); Carbon Dioxide 25 mmol/L (22-29); Chloride 106 mmol/L (98-107); Globulin 2.8 g/dL (1.3-4.6); Glomerular Filtration Rate 113.2 mL/min (90-130); Glucose 92 mg/dL (65-115); Immunoglobulin IGA 90 mg/dL (70-400); Immunoglobulin IGG 939 mg/dL (700-1600); Immunoglobulin IGM 28 mg/dL (40-230); Osmolality Calculated 290 mOsm/kg (285-295); Potassium 3.8 mmol/L (3.5-5.1); Sodium 140 mmol/L (136-145); Total Bilirubin 0.3 mg/dL (0.15-1.2); Total Protein 6.8 g/dL (6.6-8.7)
[2022-11-03 11:25] LABS: KAPPA LIGHT CHAIN, FREE, SERUM 18.8 mg/L (3.3-19.4); KAPPA/LAMBDA LIGHT CHAINS FREE 1.65 (0.26-1.65); LAMBDA LIGHT CHAIN, FREE, SERU 11.4 mg/L (5.7-26.3)
[2022-11-03 12:00] LABS: PROTEIN, TOTAL 6.4 g/dL (6.1-8.1)
[2022-11-03 15:34] LABS: ABNORMAL PROTEIN BAND 1 0.8 g/dL (NONE DETECTED); ALBUMIN 3.6 g/dL (3.8-4.8); ALPHA 1 GLOBULIN 0.3 g/dL (0.2-0.3); ALPHA 2 GLOBULIN 0.8 g/dL (0.5-0.9); BETA 1 GLOBULIN 0.4 g/dL (0.4-0.6); BETA 2 GLOBULIN 0.3 g/dL (0.2-0.5); GAMMA GLOBULIN 1.1 g/dL (0.8-1.7)
== END 2022-11-19 23:59 | disposition home or self-care (01) ==
PROVIDERS: PCP Family Medicine; Visit Provider Internal Medicine Medical Oncology
DX: C90.00 Multiple myeloma not having achieved remission (principal); G62.9 Polyneuropathy, unspecified; Z79.52 Long term (current) use of systemic steroids; Z79.891 Long term (current) use of opiate analgesic; Z79.899 Other long term (current) drug therapy; Z87.891 Personal history of nicotine dependence
CPT/HCPCS: 36415; 80053; 82784; 83883; 84155; 84165; 85025; 86334; 99214

== ENCOUNTER → 2022-12-27 08:45 | Outpatient (BNVA) | payer OTHER, MEDICAID, SELFPAY | PROVIDERS: PCP Family Medicine; Visit Provider Family Medicine | DX: R35.1 Nocturia (principal); I10 Essential (primary) hypertension | CPT/HCPCS: 80061; 84153 ==

== ENCOUNTER 2023-01-16 12:30 | Oncology outpatient (recurring) (ONCR) | payer MEDICARE, MEDICAID, SELFPAY ==
[2023-01-02 14:54] LABS: Basophils # 0.1 10^3/uL (0.0-0.1); Eosinophils # 0.2 10^3/uL (0.0-0.8); Eosinophils % 2.5 %; Hematocrit 39.3 % (42.0-52.0); Hemoglobin 12.9 g/dL (11.7-16.6); Lymphocytes # 3.2 10^3/uL (0.8-4.8); Lymphocytes % 46.3 %; Mean Corpuscular HGB Conc 32.8 g/dL (30.0-36.0); Mean Corpuscular Hemoglobin 33.2 pg (28.0-34.0); Mean Platelet Volume 9.1 fL (7.4-10.4); Monocytes # 0.6 10^3/uL (0.2-0.9); Monocytes % 8.7 %; Neutrophils # 2.83 10^3/uL (1.8-7.7); Neutrophils % 41.1 %; Nucleated Red Blood Cells % 0 %; Platelet Count 211 10^3/cmm (130-400); Red Blood Count 3.89 10^6/uL (4.1-5.3); Red Cell Distribution Width 13.6 % (12.1-15.1); White Blood Count 6.9 10^3/uL (4.0-10.0)
[2023-01-02 15:16] LABS: Alanine Aminotransferase 19 U/L (0-41); Albumin Level 4.4 g/dL (3.5-5.2); Alkaline Phosphatase 167 U/L (40-130); Anion Gap 14.9 (5-19); Aspartate Amino Transferase 21 U/L (0-40); Blood Urea Nitrogen 16 mg/dL (8-23); Calcium 9.1 mg/dL (8.5-10.5); Carbon Dioxide 24 mmol/L (22-29); Chloride 103 mmol/L (98-107); Globulin 2.8 g/dL (1.3-4.6); Glucose 86 mg/dL (65-115); Immunoglobulin IGA 89 mg/dL (70-400); Immunoglobulin IGG 1200 mg/dL (700-1600); Osmolality Calculated 286 mOsm/kg (285-295); Potassium 3.9 mmol/L (3.5-5.1); Sodium 138 mmol/L (136-145); Total Bilirubin 0.3 mg/dL (0.15-1.2); Total Protein 7.2 g/dL (6.6-8.7)
[2023-01-02 15:41] LABS: Immunoglobulin IGM 19 mg/dL (40-230)
[2023-01-03 07:19] LABS: PROTEIN, TOTAL 7.1 g/dL (6.1-8.1)
[2023-01-03 14:50] LABS: KAPPA LIGHT CHAIN, FREE, SERUM 20.3 mg/L (3.3-19.4); KAPPA/LAMBDA LIGHT CHAINS FREE 1.43 (0.26-1.65); LAMBDA LIGHT CHAIN, FREE, SERU 14.2 mg/L (5.7-26.3)
[2023-01-03 17:09] LABS: ABNORMAL PROTEIN BAND 1 0.5 g/dL (NONE DETECTED); ALBUMIN 4.1 g/dL (3.8-4.8); ALPHA 1 GLOBULIN 0.3 g/dL (0.2-0.3); ALPHA 2 GLOBULIN 0.8 g/dL (0.5-0.9); BETA 1 GLOBULIN 0.4 g/dL (0.4-0.6); BETA 2 GLOBULIN 0.3 g/dL (0.2-0.5); GAMMA GLOBULIN 1.2 g/dL (0.8-1.7)
[2023-01-16 12:58] LABS: Basophils % 0.6 %; Eosinophils # 0.4 10^3/uL (0.0-0.8); Eosinophils % 5.3 %; Hematocrit 39.8 % (42.0-52.0); Lymphocytes # 2.8 10^3/uL (0.8-4.8); Lymphocytes % 41.6 %; Mean Corpuscular HGB Conc 32.7 g/dL (30.0-36.0); Mean Corpuscular Hemoglobin 32.7 pg (28.0-34.0); Mean Corpuscular Volume 100.3 fl (80-94); Monocytes # 0.9 10^3/uL (0.2-0.9); Monocytes % 12.9 %; Neutrophils # 2.68 10^3/uL (1.8-7.7); Neutrophils % 39.3 %; Nucleated Red Blood Cells % 0 %; Platelet Count 177 10^3/cmm (130-400); Red Blood Count 3.97 10^6/uL (4.1-5.3); Red Cell Distribution Width 12.9 % (12.1-15.1); White Blood Count 6.8 10^3/uL (4.0-10.0)
[2023-01-16 13:15] LABS: Alanine Aminotransferase 19 U/L (0-41); Albumin Level 4.2 g/dL (3.5-5.2); Alkaline Phosphatase 160 U/L (40-130); Aspartate Amino Transferase 23 U/L (0-40); Blood Urea Nitrogen 12 mg/dL (8-23); Calcium 9.1 mg/dL (8.5-10.5); Carbon Dioxide 23 mmol/L (22-29); Chloride 105 mmol/L (98-107); Globulin 2.9 g/dL (1.3-4.6); Glucose 96 mg/dL (65-115); Osmolality Calculated 288 mOsm/kg (285-295); Sodium 139 mmol/L (136-145); Total Bilirubin 0.4 mg/dL (0.15-1.2); Total Protein 7.1 g/dL (6.6-8.7)
== END 2023-01-17 23:59 | disposition home or self-care (01) ==
PROVIDERS: Nurse Practitioner; PCP Family Medicine; Visit Provider Internal Medicine Medical Oncology
DX: C90.00 Multiple myeloma not having achieved remission (principal); G62.9 Polyneuropathy, unspecified; Z79.2 Long term (current) use of antibiotics; Z79.82 Long term (current) use of aspirin; Z79.891 Long term (current) use of opiate analgesic; Z79.899 Other long term (current) drug therapy; R74.8 Abnormal levels of other serum enzymes
CPT/HCPCS: 36415; 80053; 82784; 83883; 84155; 84165; 85025; 86334; 99214; 99215

== ENCOUNTER → 2023-02-01 08:39 | Outpatient (BNVA) | payer MEDICARE, BC, MEDICAID, SELFPAY | PROVIDERS: PCP Family Medicine; Visit Provider Nurse Practitioner | DX: C90.00 Multiple myeloma not having achieved remission (principal) | CPT/HCPCS: 99214 ==

== ENCOUNTER 2023-02-08 09:33 | Oncology outpatient (recurring) (ONCR) | payer MEDICARE, BC, MEDICAID, SELFPAY ==
[2023-02-01 09:02] LABS: Basophils # 0.1 10^3/uL (0.0-0.1); Basophils % 3.1 %; Eosinophils # 0.4 10^3/uL (0.0-0.8); Eosinophils % 7.7 %; Hematocrit 38.5 % (42.0-52.0); Hemoglobin 12.3 g/dL (11.7-16.6); Lymphocytes # 2.4 10^3/uL (0.8-4.8); Lymphocytes % 52.1 %; Mean Corpuscular HGB Conc 31.9 g/dL (30.0-36.0); Mean Corpuscular Volume 100.3 fl (80-94); Mean Platelet Volume 9.5 fL (7.4-10.4); Monocytes # 0.5 10^3/uL (0.2-0.9); Monocytes % 11.2 %; Neutrophils # 1.16 10^3/uL (1.8-7.7); Neutrophils % 25.5 %; Nucleated Red Blood Cells % 0 %; Platelet Count 210 10^3/cmm (130-400); Red Blood Count 3.84 10^6/uL (4.1-5.3); Red Cell Distribution Width 12.5 % (12.1-15.1); White Blood Count 4.6 10^3/uL (4.0-10.0)
[2023-02-01 09:23] LABS: Alanine Aminotransferase 23 U/L (0-41); Albumin Level 3.8 g/dL (3.5-5.2); Alkaline Phosphatase 152 U/L (40-130); Aspartate Amino Transferase 22 U/L (0-40); Blood Urea Nitrogen 17 mg/dL (8-23); Calcium 8.8 mg/dL (8.5-10.5); Carbon Dioxide 24 mmol/L (22-29); Chloride 108 mmol/L (98-107); Glucose 94 mg/dL (65-115); Osmolality Calculated 297 mOsm/kg (285-295); Sodium 143 mmol/L (136-145); Total Bilirubin 0.3 mg/dL (0.15-1.2); Total Protein 6.8 g/dL (6.6-8.7)
[2023-02-02 10:18] LABS: PROTEIN, TOTAL 6.6 g/dL (6.1-8.1)
[2023-02-02 11:24] LABS: KAPPA LIGHT CHAIN, FREE, SERUM 56.2 mg/L (3.3-19.4); KAPPA/LAMBDA LIGHT CHAINS FREE 2.04 (0.26-1.65); LAMBDA LIGHT CHAIN, FREE, SERU 27.6 mg/L (5.7-26.3)
[2023-02-02 13:39] LABS: ABNORMAL PROTEIN BAND 1 0.3 g/dL (NONE DETECTED); ALBUMIN 3.4 g/dL (3.8-4.8); ALPHA 1 GLOBULIN 0.4 g/dL (0.2-0.3); ALPHA 2 GLOBULIN 0.9 g/dL (0.5-0.9); BETA 1 GLOBULIN 0.4 g/dL (0.4-0.6); BETA 2 GLOBULIN 0.3 g/dL (0.2-0.5); GAMMA GLOBULIN 1.2 g/dL (0.8-1.7)
[2023-02-08 10:11] LABS: Basophils # 0.2 10^3/uL (0.0-0.1); Basophils % 3.9 %; Eosinophils # 0.3 10^3/uL (0.0-0.8); Eosinophils % 5.5 %; Hematocrit 39.8 % (42.0-52.0); Lymphocytes # 2.8 10^3/uL (0.8-4.8); Lymphocytes % 49.4 %; Mean Corpuscular HGB Conc 32.7 g/dL (30.0-36.0); Mean Corpuscular Hemoglobin 32.7 pg (28.0-34.0); Mean Platelet Volume 9.8 fL (7.4-10.4); Monocytes # 0.6 10^3/uL (0.2-0.9); Monocytes % 10.9 %; Neutrophils # 1.71 10^3/uL (1.8-7.7); Neutrophils % 30.1 %; Nucleated Red Blood Cells % 0 %; Platelet Count 190 10^3/cmm (130-400); Red Blood Count 3.98 10^6/uL (4.1-5.3); Red Cell Distribution Width 12.5 % (12.1-15.1); White Blood Count 5.7 10^3/uL (4.0-10.0)
== END 2023-02-17 23:59 | disposition home or self-care (01) ==
PROVIDERS: Nurse Practitioner; PCP Family Medicine; Visit Provider Internal Medicine Medical Oncology
DX: C90.00 Multiple myeloma not having achieved remission (principal); G62.9 Polyneuropathy, unspecified; Z79.2 Long term (current) use of antibiotics; Z79.82 Long term (current) use of aspirin; Z79.891 Long term (current) use of opiate analgesic; Z79.899 Other long term (current) drug therapy
CPT/HCPCS: 36415; 80053; 83883; 84155; 84165; 85025; 99214

== ENCOUNTER 2023-03-15 07:38 | Oncology outpatient (recurring) (ONCR) | payer MEDICARE, BC, MEDICAID, SELFPAY ==
[2023-02-20 08:20] LABS: Basophils # 0.2 10^3/uL (0.0-0.1); Basophils % 3.2 %; Eosinophils # 0.8 10^3/uL (0.0-0.8); Eosinophils % 15.2 %; Lymphocytes # 2.1 10^3/uL (0.8-4.8); Lymphocytes % 41.7 %; Mean Corpuscular HGB Conc 32.4 g/dL (30.0-36.0); Mean Corpuscular Hemoglobin 31.7 pg (28.0-34.0); Mean Corpuscular Volume 97.6 fl (80-94); Mean Platelet Volume 9.7 fL (7.4-10.4); Monocytes # 0.5 10^3/uL (0.2-0.9); Monocytes % 9.4 %; Neutrophils # 1.51 10^3/uL (1.8-7.7); Neutrophils % 30.3 %; Nucleated Red Blood Cells % 0 %; Platelet Count 197 10^3/cmm (130-400); Red Blood Count 3.79 10^6/uL (4.1-5.3); Red Cell Distribution Width 12.6 % (12.1-15.1)
[2023-02-20 08:40] LABS: Alanine Aminotransferase 21 U/L (0-41); Albumin Level 3.6 g/dL (3.5-5.2); Alkaline Phosphatase 156 U/L (40-130); Anion Gap 12.5 (5-19); Aspartate Amino Transferase 19 U/L (0-40); Blood Urea Nitrogen 16 mg/dL (8-23); Calcium 8.8 mg/dL (8.5-10.5); Carbon Dioxide 23 mmol/L (22-29); Chloride 107 mmol/L (98-107); Globulin 3.1 g/dL (1.3-4.6); Glomerular Filtration Rate 84.7 mL/min (90-130); Glucose 90 mg/dL (65-115); Immunoglobulin IGA 150 mg/dL (70-400); Immunoglobulin IGG 1357 mg/dL (700-1600); Osmolality Calculated 289 mOsm/kg (285-295); Potassium 3.5 mmol/L (3.5-5.1); Sodium 139 mmol/L (136-145); Total Bilirubin 0.3 mg/dL (0.15-1.2); Total Protein 6.7 g/dL (6.6-8.7)
[2023-02-20 09:09] LABS: Immunoglobulin IGM 16 mg/dL (40-230)
[2023-02-21 07:50] LABS: PROTEIN, TOTAL 6.4 g/dL (6.1-8.1)
[2023-02-21 13:25] LABS: KAPPA LIGHT CHAIN, FREE, SERUM 57.6 mg/L (3.3-19.4); KAPPA/LAMBDA LIGHT CHAINS FREE 1.97 (0.26-1.65); LAMBDA LIGHT CHAIN, FREE, SERU 29.2 mg/L (5.7-26.3)
[2023-02-21 14:59] LABS: ALBUMIN 3.3 g/dL (3.8-4.8); ALPHA 1 GLOBULIN 0.4 g/dL (0.2-0.3); ALPHA 2 GLOBULIN 0.8 g/dL (0.5-0.9); BETA 1 GLOBULIN 0.4 g/dL (0.4-0.6); BETA 2 GLOBULIN 0.3 g/dL (0.2-0.5); GAMMA GLOBULIN 1.3 g/dL (0.8-1.7)
[2023-03-15 07:59] LABS: Basophils # 0.1 10^3/uL (0.0-0.1); Basophils % 3.1 %; Eosinophils # 0.4 10^3/uL (0.0-0.8); Eosinophils % 10.4 %; Hematocrit 38.9 % (42.0-52.0); Hemoglobin 12.4 g/dL (11.7-16.6); Lymphocytes # 2.2 10^3/uL (0.8-4.8); Lymphocytes % 52.4 %; Mean Corpuscular HGB Conc 31.9 g/dL (30.0-36.0); Mean Corpuscular Hemoglobin 31.3 pg (28.0-34.0); Mean Corpuscular Volume 98.2 fl (80-94); Mean Platelet Volume 9.3 fL (7.4-10.4); Monocytes # 0.4 10^3/uL (0.2-0.9); Monocytes % 10.1 %; Neutrophils # 1.01 10^3/uL (1.8-7.7); Neutrophils % 23.8 %; Nucleated Red Blood Cells % 0 %; Platelet Count 163 10^3/cmm (130-400); Red Blood Count 3.96 10^6/uL (4.1-5.3); Red Cell Distribution Width 13.7 % (12.1-15.1); White Blood Count 4.2 10^3/uL (4.0-10.0)
[2023-03-15 08:27] LABS: Alanine Aminotransferase 21 U/L (0-41); Albumin Level 3.8 g/dL (3.5-5.2); Alkaline Phosphatase 191 U/L (40-130); Aspartate Amino Transferase 19 U/L (0-40); Blood Urea Nitrogen 14 mg/dL (8-23); Calcium 8.3 mg/dL (8.5-10.5); Carbon Dioxide 24 mmol/L (22-29); Chloride 108 mmol/L (98-107); Globulin 2.9 g/dL (1.3-4.6); Glucose 96 mg/dL (65-115); Osmolality Calculated 292 mOsm/kg (285-295); Sodium 141 mmol/L (136-145); Total Bilirubin 0.4 mg/dL (0.15-1.2); Total Protein 6.7 g/dL (6.6-8.7)
== END 2023-03-19 23:59 | disposition home or self-care (01) ==
PROVIDERS: Nurse Practitioner; PCP Family Medicine; Visit Provider Internal Medicine Medical Oncology
DX: D70.1 Agranulocytosis secondary to cancer chemotherapy (principal); T45.1X5A Adverse effect of antineoplastic and immunosuppressive drugs, initial encounter
CPT/HCPCS: 36415; 80053; 82784; 83883; 84155; 84165; 85025; 86334; 99214

== ENCOUNTER → 2023-04-03 08:24 | Outpatient (BNVA) | payer MEDICARE, MEDICAID, SELFPAY | PROVIDERS: PCP Family Medicine | DX: R39.9 Unspecified symptoms and signs involving the genitourinary system (principal) | CPT/HCPCS: 81000 ==

== ENCOUNTER 2023-04-12 10:18 | Oncology outpatient (recurring) (ONCR) | payer MEDICARE, MEDICAID, SELFPAY ==
[2023-03-23 14:30] LABS: Basophils # 0.1 10^3/uL (0.0-0.1); Basophils % 2.2 %; Eosinophils # 0.5 10^3/uL (0.0-0.8); Eosinophils % 13.4 %; Hematocrit 38.4 % (42.0-52.0); Lymphocytes # 1.6 10^3/uL (0.8-4.8); Lymphocytes % 44.5 %; Mean Corpuscular HGB Conc 31.3 g/dL (30.0-36.0); Mean Corpuscular Hemoglobin 31.3 pg (28.0-34.0); Mean Corpuscular Volume 100.3 fl (80-94); Mean Platelet Volume 10.2 fL (7.4-10.4); Monocytes # 0.4 10^3/uL (0.2-0.9); Monocytes % 9.8 %; Neutrophils # 1.06 10^3/uL (1.8-7.7); Neutrophils % 29.8 %; Nucleated Red Blood Cells % 0 %; Platelet Count 164 10^3/cmm (130-400); Red Blood Count 3.83 10^6/uL (4.1-5.3); Red Cell Distribution Width 13.9 % (12.1-15.1); White Blood Count 3.6 10^3/uL (4.0-10.0)
[2023-03-23 14:47] LABS: Alanine Aminotransferase 21 U/L (0-41); Albumin Level 3.9 g/dL (3.5-5.2); Alkaline Phosphatase 201 U/L (40-130); Anion Gap 15.2 (5-19); Aspartate Amino Transferase 22 U/L (0-40); Blood Urea Nitrogen 16 mg/dL (8-23); Calcium 8.6 mg/dL (8.5-10.5); Carbon Dioxide 23 mmol/L (22-29); Chloride 105 mmol/L (98-107); Glomerular Filtration Rate 84.7 mL/min (90-130); Glucose 106 mg/dL (65-115); Immunoglobulin IGA 159 mg/dL (70-400); Immunoglobulin IGG 1339 mg/dL (700-1600); Osmolality Calculated 290 mOsm/kg (285-295); Potassium 4.2 mmol/L (3.5-5.1); Sodium 139 mmol/L (136-145); Total Bilirubin 0.3 mg/dL (0.15-1.2); Total Protein 6.9 g/dL (6.6-8.7)
[2023-03-23 14:59] LABS: Immunoglobulin IGM < 25 mg/dL (40-230)
[2023-03-26 06:39] LABS: PROTEIN, TOTAL 6.7 g/dL (6.1-8.1)
[2023-03-27 13:40] LABS: KAPPA LIGHT CHAIN, FREE, SERUM 53.3 mg/L (3.3-19.4); KAPPA/LAMBDA LIGHT CHAINS FREE 1.97 (0.26-1.65)
[2023-03-27 14:55] LABS: ALBUMIN 3.5 g/dL (3.8-4.8); ALPHA 1 GLOBULIN 0.4 g/dL (0.2-0.3); ALPHA 2 GLOBULIN 0.8 g/dL (0.5-0.9); BETA 1 GLOBULIN 0.5 g/dL (0.4-0.6); BETA 2 GLOBULIN 0.3 g/dL (0.2-0.5); GAMMA GLOBULIN 1.2 g/dL (0.8-1.7)
[2023-03-28 13:10] LABS: CREATININE, 24 HOUR URINE 1.56 g/24 h (0.50-2.15); PROTEIN, TOTAL, 24 HR UR 390 mg/24 h (<150); Protein/Creatinine Ratio 250 mg/g creat (<100)
[2023-03-31 13:36] LABS: ALBUMIN 100 %; ALPHA-1-GLOBULINS 0 %; ALPHA-2-GLOBULINS 0 %; BETA GLOBULINS 0 %; GAMMA GLOBULINS 0 %
[2023-04-05 08:51] LABS: Basophils # 0.1 10^3/uL (0.0-0.1); Basophils % 1.3 %; Eosinophils # 0.6 10^3/uL (0.0-0.8); Eosinophils % 15.4 %; Hemoglobin 11.9 g/dL (11.7-16.6); Lymphocytes # 1.5 10^3/uL (0.8-4.8); Lymphocytes % 38.5 %; Mean Corpuscular HGB Conc 32.2 g/dL (30.0-36.0); Mean Corpuscular Hemoglobin 31.6 pg (28.0-34.0); Mean Corpuscular Volume 98.4 fl (80-94); Monocytes # 0.4 10^3/uL (0.2-0.9); Monocytes % 8.9 %; Neutrophils # 1.41 10^3/uL (1.8-7.7); Neutrophils % 35.6 %; Nucleated Red Blood Cells % 0 %; Platelet Count 159 10^3/cmm (130-400); Red Blood Count 3.76 10^6/uL (4.1-5.3); Red Cell Distribution Width 14.2 % (12.1-15.1)
[2023-04-12 11:11] LABS: Basophils # 0.1 10^3/uL (0.0-0.1); Basophils % 2.4 %; Eosinophils # 0.4 10^3/uL (0.0-0.8); Eosinophils % 10.4 %; Hematocrit 37.7 % (42.0-52.0); Hemoglobin 12.3 g/dL (11.7-16.6); Lymphocytes # 1.6 10^3/uL (0.8-4.8); Mean Corpuscular HGB Conc 32.6 g/dL (30.0-36.0); Mean Corpuscular Hemoglobin 31.7 pg (28.0-34.0); Mean Corpuscular Volume 97.2 fl (80-94); Mean Platelet Volume 11.3 fL (7.4-10.4); Monocytes # 0.3 10^3/uL (0.2-0.9); Monocytes % 9.1 %; Neutrophils # 1.29 10^3/uL (1.8-7.7); Neutrophils % 34.6 %; Nucleated Red Blood Cells % 0 %; Platelet Count 186 10^3/cmm (130-400); Red Blood Count 3.88 10^6/uL (4.1-5.3); Red Cell Distribution Width 14.4 % (12.1-15.1); White Blood Count 3.7 10^3/uL (4.0-10.0)
[2023-04-12 11:20] LABS: Erythrocyte Sedimentation Rate 43 mm/hr (0-10)
[2023-04-12 11:32] LABS: Alanine Aminotransferase 16 U/L (0-41); Albumin Level 3.4 g/dL (3.5-5.2); Alkaline Phosphatase 157 U/L (40-130); Aspartate Amino Transferase 20 U/L (0-40); Blood Urea Nitrogen 19 mg/dL (8-23); Calcium 8.6 mg/dL (8.5-10.5); Carbon Dioxide 20 mmol/L (22-29); Chloride 99 mmol/L (98-107); Globulin 3.6 g/dL (1.3-4.6); Glomerular Filtration Rate 55.4 mL/min (90-130); Glucose 99 mg/dL (65-115); Osmolality Calculated 272 mOsm/kg (285-295); Sodium 130 mmol/L (136-145); Total Bilirubin 0.5 mg/dL (0.15-1.2)
== END 2023-04-19 23:59 | disposition home or self-care (01) ==
PROVIDERS: Nurse Practitioner; PCP Family Medicine; Visit Provider Internal Medicine Medical Oncology
DX: C90.00 Multiple myeloma not having achieved remission (principal); R50.9 Fever, unspecified
CPT/HCPCS: 36415; 80053; 82784; 83883; 84155; 84156; 84165; 84166; 85025; 85651; 86140; 99214

== ENCOUNTER 2023-04-12 11:01 | Emergency (ER) | payer MEDICARE, MEDICAID, SELFPAY ==
[2023-04-12 11:05] VITALS: BP 112/51; PULSE 86; RESP 18; O2SAT 94
[2023-04-12 11:18] VITALS: PULSE 78
--- NOTE | 2023-04-12 11:29 | XRR_ITS ---
PROCEDURE INFORMATION: Exam: XR Chest Exam date and time: 04/12/2023 12:05 PM Age: 67 years old Clinical indication: Other: Syncope; Patient HX: HX of melanoma TECHNIQUE: Imaging protocol: Radiologic exam of the chest. Views: 1 view. COMPARISON: CR XR chest 1V portable [id number] 08/21/2022 9:01 PM FINDINGS: Lungs: Unremarkable. No consolidation. Pleural spaces: Unremarkable. No pleural effusion. No pneumothorax. Heart/Mediastinum: Unremarkable. No cardiomegaly. Bones/joints: Unremarkable. XR/XR chest 1V portable [id number] IMPRESSION: No acute findings.
--- NOTE | 2023-04-12 11:31 | ECG_ITS ---
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 Measurements Intervals [place] Rate: 91 P: 41 OR: 191 QRS: -46 QRSD: 110 T: 52 QT: 349 QTc: 430 Interpretive Statements SINUS RHYTHM POSSIBLE LEFT ATRIAL ENLARGEMENT [-0.1mV P-WAVE IN V1/V2] INCOMPLETE RIGHT BUNDLE BRANCH BLOCK [90+ ms QRS DURATION, TERMINAL R IN V1/V2, 40+ ms S IN I/aVL/V4/V5/V6] LEFT ANTERIOR FASCICULAR BLOCK [QRS AXIS <= -45, QR IN I, RS IN II] Compared to ECG 07/29/2019 18:09:28 Left anterior fascicular block now present Left-axis deviation no longer present Electronically Signed On 04-12-2023 22:22:36 CDT by Jennifer Peters M.D. [email or web address]
--- NOTE | 2023-04-12 11:32 | W.ED.SYNCOPE ---
HPI - Syncope General: Chief Complaint: Syncope Stated Complaint: Low BP / Passed out Time Seen by Provider: 04/12/23 11:09 Source: patient Mode of arrival: wheelchair Limitations: no limitations History of Present Illness: This patient was transported to the emergency department after rapid response was called at the oncology clinic. Patient being followed by oncology for multiple myeloma status post stem cell transplant last fall. He apparently not felt well for the past week to 10 days with intermittent fevers and has been treated with Levaquin and was in the clinic this morning for follow-up. He was having his blood drawn and then became lightheaded sweaty and then had a syncopal episode with associated vomiting. He immediately recovered back to his baseline although did feel weak. He denied any chest pain, palpitations or other cardiovascular symptoms as a prodrome to this episode this morning. He states he has had multiple blood draws over his lifetime and is never had any passing out episodes associated with activity. He states it was not particularly painful blood draw he states the hedis registered nurse rn did apologize as she was blood drawing his blood but again he felt what he would can characterize is at 1/10 pain. He states that he has not had much to eat or drink this morning prior to arrival. He did drink a Dr. Pepper. He states he has had some intermittent lightheadedness over the past week as well. He takes an antihypertensive enalapril which she has been taking faithfully. Denies any history of cardiovascular disease. Vomiting, diarrhea etc. Other than the episode of vomiting associated with his syncopal episode earlier. There was no seizure activity reported, loss of continence of bowel or bladder etc. He denies any focal weakness, headache, injury etc. He was sitting at the time of the episode and supported by staff. Prodromal symptoms: lightheaded Witnessed: Yes - by Other Context: at rest (Sitting during blood draw) Injuries sustained associated with event: none Associated symptoms: Reports fever(s) and lightheadedness; Deny abdominal pain, chest pain, headache(s), nausea or vertigo Treatments prior to arrival: none Review of Systems Const: Reports: fever(s) and fatigue; Denies: change in appetite or change in weight Eyes: Denies: change in vision or blurry vision ENMT: Denies: throat pain, odynophagia, oral sores, nasal discharge, nasal congestion or nasal obstruction Card: Reports: lightheadedness; Denies: chest pain, palpitations or irregular heart rhythm Resp: Denies: dyspnea, productive cough, non-productive cough, wheezing or stridor GI: Denies: abdominal pain, nausea, vomiting or diarrhea : Reports: change in urine stream; Denies: flank pain, difficulty urinating, urinary incontinence or hematuria Musc: Denies: neck pain, back pain, extremity pain or extremity swelling Skin/Breast: Denies: rash Neuro: Denies: headache(s), numbness in extremities, weakness in extremities, dizziness, vertigo, confusion, Slurred speech present or seizure-like activity Endo: Denies: polyuria, polydipsia, tired all the time or cold intolerance Patrick/Lymph: Denies: easy bleeding or petechiae PFSH ED PFSH: Medical History Chronic anxiety Essential hypertension Hypersomnia Mild acid reflux Multiple myeloma 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 Father Lung disease Lung cancer Other CAD (coronary artery disease) Cancer Diabetes Hypertension Denies family history of Clotting disorder Dementia Chronic kidney disease (CKD) Suicide Anesthesia complication Bleeding disorder Stroke Social History Smoking and tobacco status: former smoker Alcohol intake: current Alcohol intake frequency: holidays/special occasions only Physical Exam Narrative: EXAM NARRATIVE: He is alert appears to be in no acute distress answers questions in a goal-directed fashion. Const: COMMON NORMALS: no acute distress, average body habitus, patient oriented x3 and healthy appearing GENERAL APPEARANCE: cooperative and comfortable ORIENTATION/CONSCIOUSNESS: Yes awake HENMT: COMMON NORMALS: normocephalic, atraumatic, Normal nasal mucous membranes and turbinates present, moist oral mucous membranes, oropharynx normal and dentition normal HEAD & SCALP: normocephalic and atraumatic FACE & SINUS: sinuses nontender NOSE: Normal nasal mucous membranes and turbinates present Eye: COMMON NORMALS: Equal, round and reactive pupils present, EOMs intact bilaterally and conjunctivae normal CONJUNCTIVA: Yes conjunctivae normal PUPIL: Yes Equal, round and reactive pupils present Neck/C-Spine: COMMON NORMALS: full ROM, no lymphadenopathy, no meningeal signs, no JVD and Thyroid normal THYROID: Thyroid normal Chest: COMMONS NORMALS: normal inspection of the chest and normal palpation of entire chest wall Resp: COMMON NORMALS: normal respiratory effort, No retractions, No use of accessory muscles and clear to auscultation bilaterally AUSCULTATION: clear to auscultation bilaterally Cardio: COMMON NORMALS: no JVD, regular rate, regular rhythm, No murmurs present (Cardio) and Peripheral pulses 2+ throughout RATE: regular rate RHYTHM: regular rhythm PERIPHERAL PULSES: Peripheral pulses 2+ throughout GI: COMMON NORMALS: Normal to inspection, nondistended, normoactive bowel sounds present, Soft to palpation and No hepatosplenomegaly present PALPATION: Yes Soft to palpation and Yes No hepatosplenomegaly present : COMMON NORMALS: Yes no CVA tenderness BLADDER/KIDNEY EXAM: Yes no CVA tenderness Back/Pelvis: COMMON NORMALS: no CVA tenderness, thoracic and lumbar spine normal to inspection, no thoracic nor lumbar tenderness and thoraco-lumbar ROM normal Extremity: COMMON NORMALS: normal to inspection, full ROM, no joint enlargement, no clubbing, cyanosis or edema, no calf tenderness and no pedal edema Neuro: COMMON NORMALS: patient oriented x3 and moves all extremities MENINGEAL SIGNS: Yes no meningeal signs CRANIAL NERVES: Yes CN normal except as noted Psych: COMMON NORMALS: mental status grossly normal Skin: COMMON NORMALS: no rashes or lesions noted, no wounds, turgor normal and no jaundice GENERAL SKIN EXAM: no rashes or lesions noted and turgor normal Course Reevaluation(s): Reevaluation #1: Patient doing well. He is eating and drinking at this time. I reviewed his current findings and reviewed any historical issues may have been overlooked earlier. He does relate that he has had some sinus congestion and some bloody discharge over the past last for 5 days. Denies any significant headache he has no significant facial tenderness to palpation or percussion. Certainly this could be the source of his current history of fever we will go ahead and proceed with a CT to ensure that there is no other pathology. Time: 15:25 Consultations: Consultation #1: I discussed with Dr. Vides his treating oncologist here in [place] and we reviewed his current history and discussed potential plans for work-up in the emergency department Time: 11:44 Consultation #2: Again discussed with Dr. Vides after work-up was completed. No evidence of focal infection or concern for on ER work-up today. Dr. Vides suggested that we stop his chemotherapeutic agent and have him check in with the clinic early next week. Time: 17:05 Vital Signs: Vital signs: Vital Signs Pulse Rate 78 04/12/23 11:18 Respiratory Rate 18 04/12/23 11:05 Blood Pressure 100/60 04/12/23 16:37 Pulse Oximetry 94 04/12/23 11:05 Oxygen Delivery Me thod Room Air 04/12/23 11:05 MDM - Syncope Medical Decision Making This patient was brought to the emergency department from oncology clinic after having a syncopal episode. He is also had some fevers over the past preceding week to 10 days and received a course of Levaquin. His initial clinical examination was unrevealing and he has no history of exposure to infectious disease etc. The differential is somewhat broad at this point and we will engage additional ancillary studies to attempt to narrow the etiology of his current presentation. He is clinically stable at this time without obvious evidence of acute SC, arrhythmia etc. Work-up ensued. Initial troponin was slightly over URL better repeat troponin was reassuring with a negative delta making ACS extremely unlikely particularly in light of nonacute EKG and no history of chest pain. CTA obtained due to elevated D-dimer was reassuring. Sinus CT was obtained because of history of some sinus pressure and increased drainage which was reassuring. Urinalysis chest x-ray etc. did not reveal any obvious signs of infection. He had no abdominal tenderness elevations in transaminases bilirubin etc. that would suggest biliary tract concerns. He did not display any arrhythmias, significant hypotension etc. while in the emergency department. His syncopal episode may have been a combination of vasovagal versus mild volume depletion. I did advise that he should start taking half of his enalapril and following his blood pressures. I did recommend the patient hold his Flonase as well as that may be contributing to his bloody mucus discharge and use saline nasal wash. Dr. Vides was consulted again who recommended stopping the patient's chemotherapeutic agent and he will follow up. This was all reviewed with the patient and also discussed return precautions. Lab Data I reviewed the patient's lab results. 04/12/23 11:50 Radiology Impressions Chest X-Ray 04/12/23 11:29 IMPRESSION: No acute findings. Chest CTA 04/12/23 13:37 IMPRESSION: No acute findings. Negative for pulmonary embolism Sinuses CT 04/12/23 15:25 IMPRESSION: Unremarkable sinuses. Laboratory Results D-Dimer 1.71 ug/mIFEU (0-0.59) H 04/12/23 11:50 Sodium 131 mmol/L (136-145) L 04/12/23 11:50 Potassium 4.1 mmol/L (3.5-5.1) 04/12/23 11:50 Chloride 100 mmol/L (98-107) 04/12/23 11:50 Carbon Dioxide 20 mmol/L (22-29) L 04/12/23 11:50 Anion Gap 15.1 (5-19) 04/12/23 11:50 BUN 19 mg/dL (8-23) 04/12/23 11:50 Creatinine 1.3 mg/dL (0.7-1.2) H 04/12/23 11:50 GFR Calculation 55.4 mL/min (90-130) L 04/12/23 11:50 Glucose 108 mg/dL (65-115) 04/12/23 11:50 Calculated Osmolality 275 mOsm/kg (285-295) L 04/12/23 11:50 Lactic Acid 1.2 mmol/L (0.5-2.2) 04/12/23 11:50 Calcium 8.5 mg/dL (8.5-10.5) 04/12/23 11:50 Magnesium 1.8 mg/dL (1.7-2.3) 04/12/23 11:50 Total Bilirubin 0.5 mg/dL (0.15-1.2) 04/12/23 11:50 AST 18 U/L (0-40) 04/12/23 11:50 ALT 15 U/L (0-41) 04/12/23 11:50 Alkaline Phosphatase 153 U/L (40-130) H 04/12/23 11:50 Troponin T Gen 5 ng/L 17 ng/L (0-15) H 04/12/23 11:50 Troponin T 120 Minute 14.25 ng/L (0-15) 04/12/23 13:39 Delta Troponin T -2.75 ABS# (0-10) L 04/12/23 13:39 Total Protein 6.7 g/dL (6.6-8.7) 04/12/23 11:50 Albumin 3.4 g/dL (3.5-5.2) L 04/12/23 11:50 Globulin 3.3 g/dL (1.3-4.6) 04/12/23 11:50 Urine Color Yellow (Yellow) 04/12/23 14:35 Urine Appearance Clear (CLEAR) 04/12/23 14:35 Urine pH 5 (5-7) 04/12/23 14:35 Ur Specific [place] 1.015 (1.005-1.030) 04/12/23 14:35 Urine Protein Neg (Negative) 04/12/23 14:35 Urine Glucose (UA) Norm (Normal) 04/12/23 14:35 Urine Ketones Negative (Negative) 04/12/23 14:35 Urine Blood Neg (Negative) 04/12/23 14:35 Urine Nitrate Negative (Negative) 04/12/23 14:35 Urine Bilirubin Neg (Negative) 04/12/23 14:35 Urine Urobilinogen Norm mg/dL (Negative) 04/12/23 14:35 Ur Leukocyte Esterase Negative (Negative) 04/12/23 14:35 Influenza Type A Ag negative (Negative) 04/12/23 11:58 Influenza Type B Ag negative (Negative) 04/12/23 11:58 SARS-CoV-2 Ag (Rapid) negative (Negative) 04/12/23 11:58 EKG Data EKG 1: I personally reviewed and interpreted this EKG as follows: Interpretation: Contemporaneous review of resting EKG reveals a sinus rhythm ventricular rate of 91 bpm with a normal CO interval, QRS duration, corrected QT interval. He does have a leftward axis suggestive of a left anterior Heema block. No acute ST-T wave changes noted or other concerning rhythm changes. I have no prior tracings within the system for comparison. EKG 2: I personally reviewed and interpreted this EKG as follows: Interpretation: Contemporaneous review of second EKG this visit reveals a ventricular rate of 68 bpm with normal CO interval, QRS duration, corrected QT interval. Leftward axis is still present albeit less and earlier EKG still suggest left anterior Heema block. No acute ST-T wave changes and no change from prior tracing other than noted above. Discharge Plan Discharge Patient Disposition: Home Clinical Impression: Multiple myeloma, Vasovagal syncope Condition: Stable Prescriptions: Held Revlimid 10 mg capsule 10 mg PO QAM Hold Instructions: Resume on 04/18/23. Hold until Dr. Vides discusses resumption with you Rx Instructions: swallow whole with glass of water; do not open, crush, chew , break, or dissolve No Action Opcon-A 0.08772-8.315 % drops 2 drp ophthalmic (eye) QID PRN (Reason: UNKNOWN) carboxymethylcellulose sodium [Refresh Tears] 0.5 % drops 1 drp ophthalmic (eye) QID PRN (Reason: Dry Eyes) Metamucil (sugar) Powder 1 tbsp PO DAILY PRN (Reason: UNKNOWN) aspirin 81 mg tablet,delayed release (DR/EC) 81 mg PO QAM diclofenac sodium [Voltaren Arthritis Pain] 1 % gel 2 g topical QID PRN (Reason: Pain) Rx Instructions: Knee's valacyclovir 500 mg tablet 500 mg PO BID Qty: 60 5RF Rx Instructions: Continue 3 months post treatment for prevention of viral infection. Vitamin D3 50 mcg (2,000 unit) Capsule 50 mcg PO QAM Glucosamine Chondroitin 550-30-1 mg Capsule 1 cap PO BID atorvastatin 20 mg tablet 20 mg PO BEDTIME enalapril maleate 10 mg tablet 10 mg PO QAM gabapentin 300 mg capsule 300 mg PO TID omeprazole 20 mg capsule,delayed release(DR/EC) 20 mg PO QAM Flonase Allergy Relief 50 mcg/actuation spray,suspension 2 spray INTRANASAL QAM Rx Instructions: Please dispense a 90 day supply levocetirizine 5 mg tablet 5 mg PO QPM Discharge Orders: Discharge ED (Routine); Ordered 04/12/23 Ordered By: Aries Boogie Referrals: Debbie King DO [Primary Care Provider] - Discharge Diet: Usual diet Discharge Activity: Increase activity as tolerated Patient Instructions: Opioid Safety, Pain Management Activity Restrictions/Additional Instructions: As we discussed your evaluation in the emergency department did not reveal any serious conditions at this time however as we also discussed if you develop any persistent, worsening or new symptoms return for reevaluation. Otherwise follow-up with Dr. Vides next Monday. As we discussed we recommend cutting your enalapril down to 5 mg daily. We also recommend using nasal saline wash for any congestion or discharge. If you develop persistent or worsening fevers, shortness of breath, syncope or other concerns return to the emergency department immediately. 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
[2023-04-12] MEDS: sodium chloride 0.9% 1,000 ML 999 ML IV (11:49)
[2023-04-12 12:27] VITALS: BP 100/60
[2023-04-12 12:32] LABS: Troponin T (5th) Once 17 ng/L (0-15)
[2023-04-12 12:34] LABS: Alanine Aminotransferase 15 U/L (0-41); Albumin Level 3.4 g/dL (3.5-5.2); Alkaline Phosphatase 153 U/L (40-130); Anion Gap 15.1 (5-19); Aspartate Amino Transferase 18 U/L (0-40); Blood Urea Nitrogen 19 mg/dL (8-23); Calcium 8.5 mg/dL (8.5-10.5); Carbon Dioxide 20 mmol/L (22-29); Chloride 100 mmol/L (98-107); Globulin 3.3 g/dL (1.3-4.6); Glomerular Filtration Rate 55.4 mL/min (90-130); Glucose 108 mg/dL (65-115); Magnesium 1.8 mg/dL (1.7-2.3); Osmolality Calculated 275 mOsm/kg (285-295); Potassium 4.1 mmol/L (3.5-5.1); Sodium 131 mmol/L (136-145); Total Bilirubin 0.5 mg/dL (0.15-1.2); Total Protein 6.7 g/dL (6.6-8.7)
[2023-04-12 12:35] LABS: Lactic Sepsis W/Reflex 1.2 mmol/L (0.5-2.2)
[2023-04-12 12:47] LABS: Influenza A by IFA negative (Negative); Influenza B by IFA negative (Negative); SARS Covid-2 Antigen negative (Negative)
[2023-04-12 12:58] LABS: D Dimer 1.71 ug/mIFEU (0-0.59)
--- NOTE | 2023-04-12 13:37 | CTR_ITS ---
PROCEDURE INFORMATION: Exam: CTA Chest With Contrast Exam date and time: 04/12/2023 2:09 PM Age: 67 years old Clinical indication: Shortness of breath; Additional info: Elevated dimer; Synope TECHNIQUE: Imaging protocol: Computed tomographic angiography of the chest with contrast. Exam focused on the arteries. 3D rendering (Not supervised by radiologist): MIP and/or 3D reconstructed images were created by the technologist. Radiation optimization: All CT scans at this facility use at least one of these dose optimization techniques: automated exposure control; mA and/or kV adjustment per patient size (includes targeted exams where dose is matched to clinical indication); or iterative reconstruction. Contrast material: OMNI 350; Contrast volume: 100 ml; Contrast route: INTRAVENOUS (IV); REPORTING DATA: Count of CT and Cardiac NM exams in prior 12 months: This patient has received 0 known CTs and 0 known cardiac nuclear medicine studies in the 12 months prior to the current study. COMPARISON: CR XR chest 1V portable [id number] 04/12/2023 12:05 PM RADIATION DOSE METRICS: Total DLP (mGy-cm): 447 FINDINGS: Pulmonary arteries: Normal. No pulmonary emboli. Aorta: Unremarkable. No aortic aneurysm. No aortic dissection. Lungs: Unremarkable. No consolidation. No masses. Pleural spaces: Unremarkable. No pneumothorax. No pleural effusion. Heart: Unremarkable. No cardiomegaly. No pericardial effusion. Lymph nodes: Unremarkable. No enlarged lymph nodes. Bones/joints: Unremarkable. No acute fracture. Soft tissues: Unremarkable. CT/CT angio chest PE protcl [id number] IMPRESSION: No acute findings. Negative for pulmonary embolism
--- NOTE | 2023-04-12 13:50 | ECG_ITS ---
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 Measurements Intervals [place] Rate: 68 P: 52 MA: 199 QRS: -21 QRSD: 116 T: 43 QT: 402 QTc: 428 Interpretive Statements SINUS RHYTHM POSSIBLE LEFT ATRIAL ENLARGEMENT [-0.1mV P-WAVE IN V1/V2] BORDERLINE LEFT AXIS DEVIATION [QRS AXIS < -20] INCOMPLETE RIGHT BUNDLE BRANCH BLOCK [90+ ms QRS DURATION, TERMINAL R IN V1/V2, 40+ ms S IN I/aVL/V4/V5/V6] Compared to ECG 04/12/2023 11:37:25 Left anterior fascicular block no longer present Electronically Signed On 04-12-2023 22:43:23 CDT by Jennifer Peters M.D. [email or web address]
[2023-04-12 14:02] LABS: Troponin 5 2HR 14.25 ng/L (0-15)
[2023-04-12 14:04] LABS: Troponin 5 2HR Delta -2.75 ABS# (0-10)
[2023-04-12] MEDS: iohexol 350 mg/mL 500 mL Btl (per mL) IV (14:22)
[2023-04-12 14:54] LABS: Add Urine Microscopic? NO; Charge for UA Resulting for Rev
[2023-04-12 15:04] LABS: Bilirubin Urine Neg (Negative); Blood Urine Neg (Negative); Glucose Urine UA Norm (Normal); Ketones Urine Negative (Negative); Leukocyte Esterase Urine Negative (Negative); Nitrate Urine Negative (Negative); Protein Urine Neg (Negative); Specific Gravity, Urine 1.015 (1.005-1.030); Urine Appearance Clear (CLEAR); Urine Color Yellow (Yellow); Urobilinogen Urine Norm (Negative); pH Urine 5 (5-7)
--- NOTE | 2023-04-12 15:25 | CTR_ITS ---
PROCEDURE INFORMATION: Exam: CT Maxillofacial Without Contrast, Sinus Exam date and time: 04/12/2023 3:47 PM Age: 67 years old Clinical indication: Other: Sinus bleeding; Additional info: Stem cell with fever and sinus bleeding TECHNIQUE: Imaging protocol: CT Maxillofacial without contrast. Focus on the sinuses. Radiation optimization: All CT scans at this facility use at least one of these dose optimization techniques: automated exposure control; mA and/or kV adjustment per patient size (includes targeted exams where dose is matched to clinical indication); or iterative reconstruction. REPORTING DATA: Count of CT and Cardiac NM exams in prior 12 months: This patient has received 0 known CTs and 0 known cardiac nuclear medicine studies in the 12 months prior to the current study. COMPARISON: No relevant prior studies available. RADIATION DOSE METRICS: Total DLP (mGy-cm): 445 FINDINGS: Frontal sinuses: Normal. No air-fluid levels. Ethmoid sinuses: Normal. No air-fluid levels. Sphenoid sinuses: Normal. No air-fluid levels. Maxillary sinuses: Normal. No air-fluid levels. Ostiomeatal units are patent. Nasal cavity: Unremarkable. Orbital cavities: Orbits are normal. Globes are unremarkable. Bones/joints: Unremarkable. Soft tissues: Unremarkable. CT/CT sinus wo con* [id number] IMPRESSION: Unremarkable sinuses.
[2023-04-12 16:37] VITALS: BP 100/60
== END 2023-04-12 17:39 | disposition home or self-care (01) ==
PROVIDERS: Emergency Provider Emergency Medicine; PCP Family Medicine
DX: R55 Syncope and collapse (principal); C90.00 Multiple myeloma not having achieved remission; Z79.82 Long term (current) use of aspirin; Z20.822 Contact with and (suspected) exposure to COVID-19; Z87.891 Personal history of nicotine dependence; I10 Essential (primary) hypertension; Z94.84 Stem cells transplant status
CPT/HCPCS: 36415; 70486; 71045; 71275; 80053; 81003; 83605; 83735; 84484; 85378; 87426; 87804; 93005; 96360; 99285; J7030; Q9967

== ENCOUNTER 2023-05-16 14:22 | Oncology outpatient (recurring) (ONCR) | payer MEDICARE, MEDICAID, SELFPAY ==
[2023-04-20 10:30] VITALS: BP 117/79; PULSE 81; RESP 16; TEMP 36.3; O2SAT 98
[2023-04-20 10:53] LABS: Basophils # 0.1 10^3/uL (0.0-0.1); Eosinophils # 0.1 10^3/uL (0.0-0.8); Eosinophils % 4.7 %; Hematocrit 36.5 % (42.0-52.0); Hemoglobin 11.8 g/dL (11.7-16.6); Lymphocytes # 1.5 10^3/uL (0.8-4.8); Lymphocytes % 53.1 %; Mean Corpuscular HGB Conc 32.3 g/dL (30.0-36.0); Mean Corpuscular Hemoglobin 31.1 pg (28.0-34.0); Mean Corpuscular Volume 96.1 fl (80-94); Mean Platelet Volume 9.6 fL (7.4-10.4); Monocytes # 0.5 10^3/uL (0.2-0.9); Neutrophils % 21.2 %; Nucleated Red Blood Cells % 0 %; Platelet Count 202 10^3/cmm (130-400); Red Cell Distribution Width 14.6 % (12.1-15.1); White Blood Count 2.8 10^3/uL (4.0-10.0)
[2023-04-20 10:56] LABS: Erythrocyte Sedimentation Rate 21 mm/hr (0-10); Neutrophils # 0.59 10^3/uL (1.8-7.7)
[2023-04-20 11:25] LABS: Alanine Aminotransferase 24 U/L (0-41); Albumin Level 3.2 g/dL (3.5-5.2); Alkaline Phosphatase 139 U/L (40-130); Anion Gap 12.5 (5-19); Aspartate Amino Transferase 24 U/L (0-40); Blood Urea Nitrogen 14 mg/dL (8-23); C Reactive Protein 27.7 mg/L (0.0-4.9); Calcium 8.6 mg/dL (8.5-10.5); Carbon Dioxide 25 mmol/L (22-29); Chloride 104 mmol/L (98-107); Globulin 3.5 g/dL (1.3-4.6); Glomerular Filtration Rate 84.7 mL/min (90-130); Glucose 118 mg/dL (65-115); Immunoglobulin IGA 239 mg/dL (70-400); Immunoglobulin IGG 1182 mg/dL (700-1600); Immunoglobulin IGM 25 mg/dL (40-230); Osmolality Calculated 286 mOsm/kg (285-295); Potassium 4.5 mmol/L (3.5-5.1); Sodium 137 mmol/L (136-145); Total Bilirubin 0.2 mg/dL (0.15-1.2); Total Protein 6.7 g/dL (6.6-8.7)
[2023-04-21 11:48] LABS: KAPPA LIGHT CHAIN, FREE, SERUM 57.7 mg/L (3.3-19.4); KAPPA/LAMBDA LIGHT CHAINS FREE 1.67 (0.26-1.65); LAMBDA LIGHT CHAIN, FREE, SERU 34.5 mg/L (5.7-26.3)
[2023-04-21 13:30] LABS: PROTEIN, TOTAL 6.5 g/dL (6.1-8.1)
[2023-04-21 15:59] LABS: ALBUMIN 2.8 g/dL (3.8-4.8); ALPHA 1 GLOBULIN 0.6 g/dL (0.2-0.3); ALPHA 2 GLOBULIN 1.2 g/dL (0.5-0.9); BETA 1 GLOBULIN 0.4 g/dL (0.4-0.6); BETA 2 GLOBULIN 0.4 g/dL (0.2-0.5); GAMMA GLOBULIN 1.2 g/dL (0.8-1.7)
[2023-04-28 08:05] VITALS: BP 136/83; PULSE 85; TEMP 36.7; O2SAT 99
[2023-04-28 08:18] LABS: Basophils # 0.1 10^3/uL (0.0-0.1); Basophils % 1.1 %; Eosinophils # 0.3 10^3/uL (0.0-0.8); Eosinophils % 5.8 %; Hematocrit 38.3 % (42.0-52.0); Hemoglobin 12.3 g/dL (11.7-16.6); Lymphocytes # 2.4 10^3/uL (0.8-4.8); Lymphocytes % 51.2 %; Mean Corpuscular HGB Conc 32.1 g/dL (30.0-36.0); Mean Corpuscular Hemoglobin 31.7 pg (28.0-34.0); Mean Corpuscular Volume 98.7 fl (80-94); Mean Platelet Volume 9.3 fL (7.4-10.4); Monocytes # 0.4 10^3/uL (0.2-0.9); Monocytes % 8.9 %; Neutrophils # 1.52 10^3/uL (1.8-7.7); Neutrophils % 32.8 %; Nucleated Red Blood Cells % 0 %; Platelet Count 176 10^3/cmm (130-400); Red Blood Count 3.88 10^6/uL (4.1-5.3); White Blood Count 4.6 10^3/uL (4.0-10.0)
[2023-05-16 14:22] VITALS: BP 148/86; PULSE 83; RESP 18; TEMP 37; O2SAT 97
[2023-05-16 14:36] LABS: Basophils % 0.5 %; Eosinophils # 0.3 10^3/uL (0.0-0.8); Eosinophils % 3.2 %; Hematocrit 35.1 % (42.0-52.0); Hemoglobin 11.3 g/dL (11.7-16.6); Lymphocytes # 3.4 10^3/uL (0.8-4.8); Lymphocytes % 41.6 %; Mean Corpuscular HGB Conc 32.2 g/dL (30.0-36.0); Mean Corpuscular Hemoglobin 32.2 pg (28.0-34.0); Mean Platelet Volume 9.4 fL (7.4-10.4); Monocytes # 0.8 10^3/uL (0.2-0.9); Monocytes % 9.2 %; Neutrophils # 3.74 10^3/uL (1.8-7.7); Neutrophils % 45.4 %; Nucleated Red Blood Cells % 0 %; Platelet Count 134 10^3/cmm (130-400); Red Blood Count 3.51 10^6/uL (4.1-5.3); Red Cell Distribution Width 17.1 % (12.1-15.1); White Blood Count 8.2 10^3/uL (4.0-10.0)
[2023-05-16 14:58] LABS: Alanine Aminotransferase 13 U/L (0-41); Albumin Level 3.8 g/dL (3.5-5.2); Alkaline Phosphatase 226 U/L (40-130); Aspartate Amino Transferase 15 U/L (0-40); Blood Urea Nitrogen 11 mg/dL (8-23); Calcium 8.6 mg/dL (8.5-10.5); Carbon Dioxide 23 mmol/L (22-29); Chloride 105 mmol/L (98-107); Glucose 85 mg/dL (65-115); Immunoglobulin IGA 187 mg/dL (70-400); Immunoglobulin IGG 1206 mg/dL (700-1600); Osmolality Calculated 287 mOsm/kg (285-295); Sodium 139 mmol/L (136-145); Total Bilirubin 0.5 mg/dL (0.15-1.2); Total Protein 6.8 g/dL (6.6-8.7)
[2023-05-16 15:32] LABS: Immunoglobulin IGM 12 mg/dL (40-230)
[2023-05-17 13:04] LABS: KAPPA LIGHT CHAIN, FREE, SERUM 29.8 mg/L (3.3-19.4); KAPPA/LAMBDA LIGHT CHAINS FREE 1.65 (0.26-1.65); LAMBDA LIGHT CHAIN, FREE, SERU 18.1 mg/L (5.7-26.3)
[2023-05-17 14:09] LABS: PROTEIN, TOTAL 6.6 g/dL (6.1-8.1)
[2023-05-17 14:59] LABS: ABNORMAL PROTEIN BAND 1 0.2 g/dL (NONE DETECTED); ALBUMIN 3.5 g/dL (3.8-4.8); ALPHA 1 GLOBULIN 0.4 g/dL (0.2-0.3); ALPHA 2 GLOBULIN 0.8 g/dL (0.5-0.9); BETA 1 GLOBULIN 0.4 g/dL (0.4-0.6); BETA 2 GLOBULIN 0.3 g/dL (0.2-0.5); GAMMA GLOBULIN 1.2 g/dL (0.8-1.7)
== END 2023-05-19 23:59 | disposition home or self-care (01) ==
PROVIDERS: PCP Family Medicine; Visit Provider Internal Medicine Medical Oncology
DX: C90.00 Multiple myeloma not having achieved remission (principal); D64.9 Anemia, unspecified; R53.0 Neoplastic (malignant) related fatigue; R74.8 Abnormal levels of other serum enzymes; Z79.899 Other long term (current) drug therapy; Z87.891 Personal history of nicotine dependence; R53.83 Other fatigue
CPT/HCPCS: 36415; 80053; 82784; 83883; 84155; 84165; 85025; 85651; 86140; 99214

== ENCOUNTER 2023-06-13 08:20 | Oncology outpatient (recurring) (ONCR) | payer MEDICARE, MEDICAID, SELFPAY ==
[2023-06-13 08:30] VITALS: BP 142/83; PULSE 71; RESP 18; TEMP 36.6; O2SAT 100
[2023-06-13 08:57] LABS: Basophils # 0.1 10^3/uL (0.0-0.1); Basophils % 1.8 %; Eosinophils # 0.5 10^3/uL (0.0-0.8); Eosinophils % 11.5 %; Hematocrit 36.5 % (42.0-52.0); Lymphocytes # 1.9 10^3/uL (0.8-4.8); Lymphocytes % 42.7 %; Mean Corpuscular HGB Conc 32.9 g/dL (30.0-36.0); Mean Corpuscular Hemoglobin 34.1 pg (28.0-34.0); Mean Corpuscular Volume 103.7 fl (80-94); Mean Platelet Volume 9.7 fL (7.4-10.4); Monocytes # 0.5 10^3/uL (0.2-0.9); Monocytes % 11.2 %; Neutrophils # 1.42 10^3/uL (1.8-7.7); Neutrophils % 32.6 %; Nucleated Red Blood Cells % 0 %; Platelet Count 189 10^3/cmm (130-400); Red Blood Count 3.52 10^6/uL (4.1-5.3); Red Cell Distribution Width 16.2 % (12.1-15.1); White Blood Count 4.4 10^3/uL (4.0-10.0)
[2023-06-13 09:27] LABS: Alanine Aminotransferase 12 U/L (0-41); Alkaline Phosphatase 204 U/L (40-130); Anion Gap 13.3 (5-19); Aspartate Amino Transferase 14 U/L (0-40); Blood Urea Nitrogen 13 mg/dL (8-23); Calcium 8.4 mg/dL (8.5-10.5); Carbon Dioxide 24 mmol/L (22-29); Chloride 107 mmol/L (98-107); Globulin 2.6 g/dL (1.3-4.6); Glomerular Filtration Rate 84.7 mL/min (90-130); Glucose 94 mg/dL (65-115); Immunoglobulin IGA 209 mg/dL (70-400); Immunoglobulin IGG 1288 mg/dL (700-1600); Osmolality Calculated 290 mOsm/kg (285-295); Potassium 4.3 mmol/L (3.5-5.1); Sodium 140 mmol/L (136-145); Total Bilirubin 0.4 mg/dL (0.15-1.2); Total Protein 6.6 g/dL (6.6-8.7)
[2023-06-13 09:52] LABS: Immunoglobulin IGM 15 mg/dL (40-230)
[2023-06-14 08:59] LABS: PROTEIN, TOTAL 6.9 g/dL (6.1-8.1)
[2023-06-14 12:56] LABS: KAPPA LIGHT CHAIN, FREE, SERUM 55.6 mg/L (3.3-19.4); KAPPA/LAMBDA LIGHT CHAINS FREE 1.87 (0.26-1.65); LAMBDA LIGHT CHAIN, FREE, SERU 29.7 mg/L (5.7-26.3)
[2023-06-14 13:34] LABS: ABNORMAL PROTEIN BAND 1 0.2 g/dL (NONE DETECTED); ALBUMIN 3.6 g/dL (3.8-4.8); ALPHA 1 GLOBULIN 0.4 g/dL (0.2-0.3); ALPHA 2 GLOBULIN 0.8 g/dL (0.5-0.9); BETA 1 GLOBULIN 0.4 g/dL (0.4-0.6); BETA 2 GLOBULIN 0.4 g/dL (0.2-0.5); GAMMA GLOBULIN 1.3 g/dL (0.8-1.7)
== END 2023-06-19 23:59 | disposition home or self-care (01) ==
PROVIDERS: PCP Family Medicine; Visit Provider Internal Medicine Medical Oncology
DX: C90.00 Multiple myeloma not having achieved remission (principal)
CPT/HCPCS: 36415; 80053; 82784; 83883; 84155; 84165; 85025

== ENCOUNTER 2023-06-20 09:12 | Oncology outpatient (recurring) (ONCR) | payer MEDICARE, MEDICAID, SELFPAY | END 2023-07-20 23:59 | disposition home or self-care (01) | PROVIDERS: PCP Family Medicine; Visit Provider Internal Medicine Medical Oncology | DX: C90.00 Multiple myeloma not having achieved remission (principal); D70.1 Agranulocytosis secondary to cancer chemotherapy; T45.1X5A Adverse effect of antineoplastic and immunosuppressive drugs, initial encounter; Z79.82 Long term (current) use of aspirin; Z79.899 Other long term (current) drug therapy | CPT/HCPCS: 99214 ==

== ENCOUNTER 2023-07-25 08:56 | Oncology outpatient (recurring) (ONCR) | payer MEDICARE, MEDICAID, SELFPAY ==
[2023-07-25 09:07] VITALS: BP 131/68; PULSE 79; RESP 16; TEMP 36.8; O2SAT 98
[2023-07-25 09:37] VITALS: BP 131/68; PULSE 79; RESP 16; TEMP 36.8; O2SAT 98
[2023-07-25 09:48] LABS: Basophils # 0.1 10^3/uL (0.0-0.1); Basophils % 2.8 %; Eosinophils # 0.2 10^3/uL (0.0-0.8); Hematocrit 39.3 % (37-53); Lymphocytes # 2.2 10^3/uL (0.8-4.8); Lymphocytes % 46.8 %; Mean Corpuscular HGB Conc 33.1 g/dL (30-55); Mean Corpuscular Hemoglobin 34.2 pg (27-33); Mean Corpuscular Volume 103.4 fl (82-101); Mean Platelet Volume 9.2 fL (7.4-10.4); Monocytes # 0.4 10^3/uL (0.2-0.9); Monocytes % 9.3 %; Neutrophils # 1.66 10^3/uL (1.8-7.7); Neutrophils % 35.7 %; Nucleated Red Blood Cells % 0 %; Platelet Count 186 10^3/cmm (157-399); Red Cell Distribution Width 13.4 % (12.1-15.1); White Blood Count 4.64 10^3/uL (3.29-11.43)
[2023-07-25 10:07] LABS: Alanine Aminotransferase 14 U/L (0-41); Alkaline Phosphatase 205 U/L (40-130); Aspartate Amino Transferase 18 U/L (0-40); Blood Urea Nitrogen 16 mg/dL (8-23); Calcium 8.8 mg/dL (8.5-10.5); Carbon Dioxide 25 mmol/L (22-29); Chloride 105 mmol/L (98-107); Globulin 3.2 g/dL (1.3-4.6); Glomerular Filtration Rate 84.7 mL/min (90-130); Glucose 96 mg/dL (65-115); Osmolality Calculated 285 mOsm/kg (285-295); Sodium 137 mmol/L (136-145); Total Bilirubin 0.5 mg/dL (0.15-1.2); Total Protein 7.2 g/dL (6.6-8.7)
[2023-07-25 10:12] LABS: Anion Gap 11.3 (5-19); Potassium 4.3 mmol/L (3.5-5.1)
[2023-07-25 10:30] LABS: Immunoglobulin IGA 224 mg/dL (70-400); Immunoglobulin IGG 1287 mg/dL (700-1600)
[2023-07-25 10:44] LABS: Immunoglobulin IGM 12 mg/dL (40-230)
[2023-07-26 10:40] LABS: PROTEIN, TOTAL 6.9 g/dL (6.1-8.1)
[2023-07-26 11:04] LABS: KAPPA LIGHT CHAIN, FREE, SERUM 39.7 mg/L (3.3-19.4); KAPPA/LAMBDA LIGHT CHAINS FREE 1.65 (0.26-1.65)
[2023-07-27 09:14] LABS: ALBUMIN 3.7 g/dL (3.8-4.8); ALPHA 1 GLOBULIN 0.4 g/dL (0.2-0.3); ALPHA 2 GLOBULIN 0.8 g/dL (0.5-0.9); BETA 1 GLOBULIN 0.4 g/dL (0.4-0.6); BETA 2 GLOBULIN 0.4 g/dL (0.2-0.5); GAMMA GLOBULIN 1.2 g/dL (0.8-1.7)
== END 2023-08-19 23:59 | disposition home or self-care (01) ==
LOC: ONCMED 08:56
PROVIDERS: PCP Family Medicine; Visit Provider Internal Medicine Medical Oncology
DX: C90.00 Multiple myeloma not having achieved remission (principal)
CPT/HCPCS: 36415; 80053; 82784; 83883; 84155; 84165; 85025

== ENCOUNTER 2023-08-22 08:15 | Oncology outpatient (recurring) (ONCR) | payer MEDICARE, MEDICAID, SELFPAY ==
[2023-08-22 08:24] VITALS: BP 145/83; PULSE 74; RESP 16; TEMP 36.8; O2SAT 98
[2023-08-22 08:48] LABS: Basophils # 0.2 10^3/uL (0.0-0.1); Basophils % 2.8 %; Eosinophils # 0.3 10^3/uL (0.0-0.8); Eosinophils % 5.6 %; Hematocrit 40.2 % (37-53); Lymphocytes # 2.9 10^3/uL (0.8-4.8); Lymphocytes % 50.3 %; Mean Corpuscular HGB Conc 33.3 g/dL (30-55); Mean Platelet Volume 9.2 fL (7.4-10.4); Monocytes # 0.5 10^3/uL (0.2-0.9); Monocytes % 8.9 %; Neutrophils # 1.86 10^3/uL (1.8-7.7); Neutrophils % 32.2 %; Nucleated Red Blood Cells % 0 %; Platelet Count 203 10^3/cmm (157-399); Red Blood Count 3.94 10^6/uL (3.85-5.65); Red Cell Distribution Width 12.9 % (12.1-15.1); White Blood Count 5.76 10^3/uL (3.29-11.43)
[2023-08-22 08:59] LABS: Alanine Aminotransferase 16 U/L (0-41); Albumin Level 4.2 g/dL (3.5-5.2); Alkaline Phosphatase 234 U/L (40-130); Anion Gap 12.5 (5-19); Aspartate Amino Transferase 17 U/L (0-40); Blood Urea Nitrogen 19 mg/dL (8-23); Calcium 9.1 mg/dL (8.5-10.5); Carbon Dioxide 26 mmol/L (22-29); Chloride 105 mmol/L (98-107); Globulin 3.2 g/dL (1.3-4.6); Glucose 104 mg/dL (65-115); Immunoglobulin IGA 235 mg/dL (70-400); Immunoglobulin IGG 1329 mg/dL (700-1600); Osmolality Calculated 291 mOsm/kg (285-295); Potassium 4.5 mmol/L (3.5-5.1); Sodium 139 mmol/L (136-145); Total Bilirubin 0.3 mg/dL (0.15-1.2); Total Protein 7.4 g/dL (6.6-8.7)
[2023-08-22 09:01] LABS: Immunoglobulin IGM < 25 mg/dL (40-230)
[2023-08-23 10:39] LABS: KAPPA/LAMBDA LIGHT CHAINS FREE 1.55 (0.26-1.65); LAMBDA LIGHT CHAIN, FREE, SERU 23.2 mg/L (5.7-26.3)
[2023-08-23 16:29] LABS: ALBUMIN 3.8 g/dL (3.8-4.8); ALPHA 1 GLOBULIN 0.3 g/dL (0.2-0.3); ALPHA 2 GLOBULIN 0.8 g/dL (0.5-0.9); BETA 1 GLOBULIN 0.5 g/dL (0.4-0.6); BETA 2 GLOBULIN 0.4 g/dL (0.2-0.5); GAMMA GLOBULIN 1.3 g/dL (0.8-1.7)
== END 2023-09-19 23:59 | disposition home or self-care (01) ==
PROVIDERS: PCP Family Medicine; Visit Provider Internal Medicine Medical Oncology
DX: C90.00 Multiple myeloma not having achieved remission (principal); D70.1 Agranulocytosis secondary to cancer chemotherapy; T45.1X5A Adverse effect of antineoplastic and immunosuppressive drugs, initial encounter; Z79.82 Long term (current) use of aspirin; Z79.899 Other long term (current) drug therapy
CPT/HCPCS: 36415; 80053; 82784; 83883; 84155; 84165; 85025; 99214

== ENCOUNTER 2023-09-26 07:45 | Oncology outpatient (recurring) (ONCR) | payer MEDICARE, MEDICAID, SELFPAY ==
[2023-09-26 07:56] VITALS: BP 132/78; PULSE 70; RESP 16; TEMP 36.9; O2SAT 98
[2023-09-26 08:18] LABS: Basophils # 0.1 10^3/uL (0.0-0.1); Basophils % 1.6 %; Eosinophils # 0.2 10^3/uL (0.0-0.8); Eosinophils % 4.9 %; Hematocrit 38.9 % (37-53); Lymphocytes # 2.6 10^3/uL (0.8-4.8); Lymphocytes % 51.8 %; Mean Corpuscular HGB Conc 32.9 g/dL (30-55); Mean Corpuscular Hemoglobin 33.5 pg (27-33); Mean Corpuscular Volume 101.8 fl (82-101); Mean Platelet Volume 9.1 fL (7.4-10.4); Monocytes # 0.3 10^3/uL (0.2-0.9); Monocytes % 5.7 %; Neutrophils # 1.75 10^3/uL (1.8-7.7); Neutrophils % 35.6 %; Nucleated Red Blood Cells % 0 %; Platelet Count 171 10^3/cmm (157-399); Red Blood Count 3.82 10^6/uL (3.85-5.65); Red Cell Distribution Width 13.5 % (12.1-15.1); White Blood Count 4.92 10^3/uL (3.29-11.43)
[2023-09-26 08:53] LABS: Alanine Aminotransferase 19 U/L (0-41); Alkaline Phosphatase 201 U/L (40-130); Aspartate Amino Transferase 19 U/L (0-40); Blood Urea Nitrogen 14 mg/dL (8-23); Calcium 8.8 mg/dL (8.5-10.5); Carbon Dioxide 24 mmol/L (22-29); Chloride 105 mmol/L (98-107); Creatinine Clr Calc Pharmacy 98.0708; Globulin 2.8 g/dL (1.3-4.6); Glomerular Filtration Rate 84.7 mL/min (90-130); Glucose 97 mg/dL (65-115); Immunoglobulin IGA 230 mg/dL (70-400); Immunoglobulin IGG 1262 mg/dL (700-1600); Osmolality Calculated 286 mOsm/kg (285-295); Sodium 138 mmol/L (136-145); Total Bilirubin 0.4 mg/dL (0.15-1.2); Total Protein 6.8 g/dL (6.6-8.7)
[2023-09-26 08:55] LABS: Immunoglobulin IGM < 25 mg/dL (40-230)
[2023-09-27 07:13] LABS: PROTEIN, TOTAL 6.6 g/dL (6.1-8.1)
[2023-09-27 12:48] LABS: KAPPA LIGHT CHAIN, FREE, SERUM 44.1 mg/L (3.3-19.4); LAMBDA LIGHT CHAIN, FREE, SERU 25.9 mg/L (5.7-26.3)
[2023-09-27 13:25] LABS: ABNORMAL PROTEIN BAND 1 0.1 g/dL (NONE DETECTED); ALBUMIN 3.6 g/dL (3.8-4.8); ALPHA 1 GLOBULIN 0.3 g/dL (0.2-0.3); ALPHA 2 GLOBULIN 0.7 g/dL (0.5-0.9); BETA 1 GLOBULIN 0.4 g/dL (0.4-0.6); BETA 2 GLOBULIN 0.4 g/dL (0.2-0.5); GAMMA GLOBULIN 1.2 g/dL (0.8-1.7)
== END 2023-10-19 23:59 | disposition home or self-care (01) ==
LOC: ONCMED 07:45
PROVIDERS: Nurse Practitioner Family; PCP Family Medicine; Visit Provider Internal Medicine Medical Oncology
DX: C90.00 Multiple myeloma not having achieved remission (principal); D70.1 Agranulocytosis secondary to cancer chemotherapy; T45.1X5A Adverse effect of antineoplastic and immunosuppressive drugs, initial encounter; Z79.82 Long term (current) use of aspirin; Z79.899 Other long term (current) drug therapy
CPT/HCPCS: 36415; 80053; 82784; 83883; 84155; 84165; 85025

== ENCOUNTER 2023-10-30 07:51 | Oncology outpatient (recurring) (ONCR) | payer MEDICARE, MEDICAID, SELFPAY ==
[2023-10-30 08:06] VITALS: BP 136/80; PULSE 85; RESP 16; TEMP 36.8; O2SAT 99
[2023-10-30 08:56] LABS: Alanine Aminotransferase 22 U/L (0-41); Albumin Level 4.1 g/dL (3.5-5.2); Alkaline Phosphatase 220 U/L (40-130); Aspartate Amino Transferase 19 U/L (0-40); Blood Urea Nitrogen 16 mg/dL (8-23); Calcium 8.7 mg/dL (8.5-10.5); Carbon Dioxide 25 mmol/L (22-29); Chloride 103 mmol/L (98-107); Globulin 3.1 g/dL (1.3-4.6); Glomerular Filtration Rate 74.8 mL/min (90-130); Glucose 103 mg/dL (65-115); Osmolality Calculated 285 mOsm/kg (285-295); Sodium 137 mmol/L (136-145); Total Bilirubin 0.5 mg/dL (0.15-1.2); Total Protein 7.2 g/dL (6.6-8.7)
[2023-10-30 09:02] LABS: Basophils # 0.1 10^3/uL (0.0-0.1); Basophils % 1.2 %; Eosinophils # 0.4 10^3/uL (0.0-0.8); Hematocrit 40.6 % (37-53); Lymphocytes # 2.5 10^3/uL (0.8-4.8); Lymphocytes % 38.3 %; Mean Platelet Volume 9.3 fL (7.4-10.4); Monocytes # 0.8 10^3/uL (0.2-0.9); Monocytes % 12.5 %; Neutrophils # 2.72 10^3/uL (1.8-7.7); Neutrophils % 41.8 %; Nucleated Red Blood Cells % 0 %; Platelet Count 178 10^3/cmm (157-399); Red Blood Count 3.94 10^6/uL (3.85-5.65); Red Cell Distribution Width 13.7 % (12.1-15.1)
[2023-10-30 11:43] LABS: Immunoglobulin IGA 252 mg/dL (70-400); Immunoglobulin IGG 1306 mg/dL (700-1600)
[2023-10-30 11:54] LABS: Immunoglobulin IGM < 25 mg/dL (40-230)
[2023-10-31 10:29] LABS: PROTEIN, TOTAL 6.8 g/dL (6.1-8.1)
[2023-10-31 12:09] LABS: KAPPA LIGHT CHAIN, FREE, SERUM 47.5 mg/L (3.3-19.4); KAPPA/LAMBDA LIGHT CHAINS FREE 1.55 (0.26-1.65); LAMBDA LIGHT CHAIN, FREE, SERU 30.7 mg/L (5.7-26.3)
[2023-11-01 12:09] LABS: ABNORMAL PROTEIN BAND 1 0.2 g/dL (NONE DETECTED); ALBUMIN 3.7 g/dL (3.8-4.8); ALPHA 1 GLOBULIN 0.3 g/dL (0.2-0.3); ALPHA 2 GLOBULIN 0.7 g/dL (0.5-0.9); BETA 1 GLOBULIN 0.4 g/dL (0.4-0.6); BETA 2 GLOBULIN 0.4 g/dL (0.2-0.5); GAMMA GLOBULIN 1.3 g/dL (0.8-1.7)
== END 2023-11-19 23:59 | disposition home or self-care (01) ==
PROVIDERS: Nurse Practitioner Family; PCP Family Medicine; Visit Provider Internal Medicine Medical Oncology
DX: C90.00 Multiple myeloma not having achieved remission (principal); D70.1 Agranulocytosis secondary to cancer chemotherapy; T45.1X5A Adverse effect of antineoplastic and immunosuppressive drugs, initial encounter; Z79.82 Long term (current) use of aspirin; Z79.899 Other long term (current) drug therapy
CPT/HCPCS: 36415; 80053; 82784; 83883; 84155; 84165; 85025; 99215

== ENCOUNTER 2023-12-12 15:30 | Oncology outpatient (recurring) (ONCR) | payer MEDICARE, MEDICAID, SELFPAY ==
[2023-11-27 09:42] VITALS: BP 141/85; PULSE 77; RESP 16; TEMP 36.9; O2SAT 100
[2023-11-27 10:05] LABS: Basophils # 0.1 10^3/uL (0.0-0.1); Basophils % 1.1 %; Eosinophils # 0.3 10^3/uL (0.0-0.8); Eosinophils % 4.4 %; Lymphocytes # 2.9 10^3/uL (0.8-4.8); Lymphocytes % 45.3 %; Mean Corpuscular Hemoglobin 33.4 pg (27-33); Mean Corpuscular Volume 101.3 fl (82-101); Mean Platelet Volume 9.1 fL (7.4-10.4); Monocytes # 0.7 10^3/uL (0.2-0.9); Monocytes % 11.2 %; Neutrophils # 2.38 10^3/uL (1.8-7.7); Neutrophils % 37.7 %; Nucleated Red Blood Cells % 0 %; Platelet Count 176 10^3/cmm (157-399); Red Blood Count 3.95 10^6/uL (3.85-5.65); Red Cell Distribution Width 13.6 % (12.1-15.1); White Blood Count 6.33 10^3/uL (3.29-11.43)
[2023-11-27 10:24] LABS: Alanine Aminotransferase 17 U/L (0-41); Albumin Level 3.9 g/dL (3.5-5.2); Alkaline Phosphatase 200 U/L (40-130); Anion Gap 14.9 (5-19); Aspartate Amino Transferase 14 U/L (0-40); Blood Urea Nitrogen 14 mg/dL (8-23); Calcium 8.8 mg/dL (8.5-10.5); Carbon Dioxide 24 mmol/L (22-29); Chloride 103 mmol/L (98-107); Globulin 3.5 g/dL (1.3-4.6); Glomerular Filtration Rate 84.4 mL/min (90-130); Glucose 104 mg/dL (65-115); Osmolality Calculated 287 mOsm/kg (285-295); Potassium 3.9 mmol/L (3.5-5.1); Sodium 138 mmol/L (136-145); Total Bilirubin 0.4 mg/dL (0.15-1.2); Total Protein 7.4 g/dL (6.6-8.7)
[2023-11-27 10:40] LABS: Vitamin B12 220 pg/mL (232-1245)
[2023-11-27 10:48] LABS: Folate Level 10.2 ng/mL (4.5-32.2)
[2023-11-28 07:54] LABS: PROTEIN, TOTAL 7.3 g/dL (6.1-8.1)
[2023-11-28 13:30] LABS: ABNORMAL PROTEIN BAND 1 0.2 g/dL (NONE DETECTED); ALBUMIN 3.7 g/dL (3.8-4.8); ALPHA 1 GLOBULIN 0.4 g/dL (0.2-0.3); ALPHA 2 GLOBULIN 0.8 g/dL (0.5-0.9); BETA 1 GLOBULIN 0.5 g/dL (0.4-0.6); BETA 2 GLOBULIN 0.5 g/dL (0.2-0.5); GAMMA GLOBULIN 1.5 g/dL (0.8-1.7); KAPPA LIGHT CHAIN, FREE, SERUM 60.4 mg/L (3.3-19.4); KAPPA/LAMBDA LIGHT CHAINS FREE 1.62 (0.26-1.65); LAMBDA LIGHT CHAIN, FREE, SERU 37.3 mg/L (5.7-26.3)
[2023-12-12 15:15] VITALS: BP 156/89; PULSE 73; RESP 17; TEMP 36.8; O2SAT 94
[2023-12-12 15:38] LABS: Basophils # 0.1 10^3/uL (0.0-0.1); Eosinophils # 0.2 10^3/uL (0.0-0.8); Eosinophils % 2.4 %; Hematocrit 42.6 % (37-53); Lymphocytes % 57.3 %; Mean Corpuscular HGB Conc 32.6 g/dL (30-55); Mean Corpuscular Hemoglobin 33.3 pg (27-33); Mean Corpuscular Volume 102.2 fl (82-101); Mean Platelet Volume 9.2 fL (7.4-10.4); Monocytes # 0.6 10^3/uL (0.2-0.9); Monocytes % 8.4 %; Neutrophils # 2.08 10^3/uL (1.8-7.7); Neutrophils % 29.8 %; Nucleated Red Blood Cells % 0 %; Platelet Count 212 10^3/cmm (157-399); Red Blood Count 4.17 10^6/uL (3.85-5.65); Red Cell Distribution Width 13.4 % (12.1-15.1)
== END 2023-12-20 23:59 | disposition home or self-care (01) ==
PROVIDERS: Internal Medicine; Nurse Practitioner Family; PCP Family Medicine; Visit Provider Internal Medicine Medical Oncology
DX: C90.00 Multiple myeloma not having achieved remission (principal); Z53.9 Procedure and treatment not carried out, unspecified reason
CPT/HCPCS: 36415; 80053; 82607; 82746; 83883; 84155; 84165; 85025; 86334; 99214

== ENCOUNTER 2024-01-08 07:48 | Oncology outpatient (recurring) (ONCR) | payer MEDICARE, MEDICAID, SELFPAY ==
[2024-01-08 08:08] LABS: Basophils # 0.1 10^3/uL (0.0-0.1); Basophils % 2.1 %; Eosinophils # 0.2 10^3/uL (0.0-0.8); Eosinophils % 4.2 %; Hematocrit 41.6 % (37-53); Lymphocytes # 3.2 10^3/uL (0.8-4.8); Mean Corpuscular HGB Conc 32.9 g/dL (30-55); Mean Corpuscular Hemoglobin 33.9 pg (27-33); Mean Platelet Volume 8.9 fL (7.4-10.4); Monocytes # 0.5 10^3/uL (0.2-0.9); Monocytes % 8.7 %; Neutrophils # 1.65 10^3/uL (1.8-7.7); Neutrophils % 28.8 %; Nucleated Red Blood Cells % 0.3 %; Platelet Count 209 10^3/cmm (157-399); Red Blood Count 4.04 10^6/uL (3.85-5.65); Red Cell Distribution Width 13.6 % (12.1-15.1); White Blood Count 5.73 10^3/uL (3.29-11.43)
[2024-01-08 08:38] LABS: Chol HDL Ratio 3.15 mg/dL (1.0-5.00); Cholesterol 107 mg/dL (0-200); HDL Cholesterol 34 mg/dL (60-100); LDL Cholesterol Calculated 53 mg/dL (50-129); LDL HDL Ratio 1.56 RATIO (0.00-3.22); Prostate Specific Antigen 0.987 ng/mL (0-4); Triglycerides 100 mg/dL (0-150)
== END 2024-01-18 23:59 | disposition home or self-care (01) ==
LOC: ONCMED 07:48
PROVIDERS: Nurse Practitioner Family; PCP Family Medicine; Visit Provider Internal Medicine Medical Oncology
DX: C90.00 Multiple myeloma not having achieved remission (principal); I10 Essential (primary) hypertension; R35.1 Nocturia
CPT/HCPCS: 36415; 80061; 84153; 85025

== ENCOUNTER 2024-02-05 07:52 | Oncology outpatient (recurring) (ONCR) | payer MEDICARE, MEDICAID, SELFPAY ==
[2024-02-05 08:28] LABS: Basophils # 0.1 10^3/uL (0.0-0.1); Basophils % 2.3 %; Eosinophils # 0.3 10^3/uL (0.0-0.8); Eosinophils % 6.1 %; Hematocrit 41.1 % (37-53); Lymphocytes # 2.7 10^3/uL (0.8-4.8); Lymphocytes % 51.6 %; Mean Corpuscular HGB Conc 32.6 g/dL (30-55); Mean Corpuscular Hemoglobin 33.1 pg (27-33); Mean Corpuscular Volume 101.5 fl (82-101); Mean Platelet Volume 9.4 fL (7.4-10.4); Monocytes # 0.4 10^3/uL (0.2-0.9); Monocytes % 8.4 %; Neutrophils # 1.64 10^3/uL (1.8-7.7); Neutrophils % 31.4 %; Nucleated Red Blood Cells % 0 %; Platelet Count 220 10^3/cmm (157-399); Red Blood Count 4.05 10^6/uL (3.85-5.65); Red Cell Distribution Width 13.6 % (12.1-15.1); White Blood Count 5.23 10^3/uL (3.29-11.43)
[2024-02-05 08:49] LABS: LAB Peripheral Smear Sent for Review
[2024-02-05 09:39] LABS: Alanine Aminotransferase 15 U/L (0-41); Alkaline Phosphatase 209 U/L (40-130); Aspartate Amino Transferase 17 U/L (0-40); Blood Urea Nitrogen 18 mg/dL (8-23); Carbon Dioxide 25 mmol/L (22-29); Chloride 101 mmol/L (98-107); Creatinine Clr Calc Pharmacy 98.8352; Globulin 3.4 g/dL (1.3-4.6); Glomerular Filtration Rate 84.4 mL/min (90-130); Glucose 105 mg/dL (65-115); Osmolality Calculated 280 mOsm/kg (285-295); Sodium 134 mmol/L (136-145); Total Bilirubin 0.3 mg/dL (0.15-1.2); Total Protein 7.4 g/dL (6.6-8.7)
[2024-02-05 09:40] LABS: Anion Gap 12.3 (5-19); Potassium 4.3 mmol/L (3.5-5.1)
[2024-02-05 15:34] LABS: Immunoglobulin IGA 408 mg/dL (70-400); Immunoglobulin IGG 1496 mg/dL (700-1600)
[2024-02-05 15:39] LABS: Immunoglobulin IGM < 25 mg/dL (40-230)
[2024-02-06 07:17] LABS: Vitamin B12 379 pg/mL (232-1245)
[2024-02-06 11:33] LABS: PROTEIN, TOTAL 7.2 g/dL (6.1-8.1)
[2024-02-06 11:49] LABS: KAPPA LIGHT CHAIN, FREE, SERUM 56.9 mg/L (3.3-19.4); KAPPA/LAMBDA LIGHT CHAINS FREE 1.45 (0.26-1.65); LAMBDA LIGHT CHAIN, FREE, SERU 39.2 mg/L (5.7-26.3)
[2024-02-07 08:44] LABS: ABNORMAL PROTEIN BAND 1 0.2 g/dL (NONE DETECTED); ALBUMIN 3.6 g/dL (3.8-4.8); ALPHA 1 GLOBULIN 0.4 g/dL (0.2-0.3); ALPHA 2 GLOBULIN 0.8 g/dL (0.5-0.9); BETA 1 GLOBULIN 0.5 g/dL (0.4-0.6); BETA 2 GLOBULIN 0.5 g/dL (0.2-0.5); GAMMA GLOBULIN 1.4 g/dL (0.8-1.7)
[2024-02-08 11:28] LABS: Leukemia Profile (BBPL) See Report; Lymphoma Profile (BBPL) See Report
== END 2024-02-18 23:59 | disposition home or self-care (01) ==
PROVIDERS: Nurse Practitioner Family; PCP Family Medicine; Visit Provider Internal Medicine Medical Oncology
DX: C90.00 Multiple myeloma not having achieved remission (principal); D70.1 Agranulocytosis secondary to cancer chemotherapy; T45.1X5A Adverse effect of antineoplastic and immunosuppressive drugs, initial encounter; Z79.82 Long term (current) use of aspirin; Z79.899 Other long term (current) drug therapy
CPT/HCPCS: 36415; 80053; 82607; 82784; 83883; 84155; 84165; 85025; 88184; 88185; 99214

== ENCOUNTER 2024-03-04 12:51 | Oncology outpatient (recurring) (ONCR) | payer MEDICARE, MEDICAID, SELFPAY ==
[2024-03-04 13:18] LABS: Basophils # 0.1 10^3/uL (0.0-0.1); Basophils % 1.7 %; Eosinophils # 0.2 10^3/uL (0.0-0.8); Eosinophils % 3.2 %; Hematocrit 39.4 % (37-53); Lymphocytes # 3.7 10^3/uL (0.8-4.8); Lymphocytes % 58.3 %; Mean Corpuscular HGB Conc 33.5 g/dL (30-55); Mean Corpuscular Hemoglobin 33.9 pg (27-33); Mean Corpuscular Volume 101.3 fl (82-101); Mean Platelet Volume 8.8 fL (7.4-10.4); Monocytes # 0.6 10^3/uL (0.2-0.9); Monocytes % 9.4 %; Neutrophils # 1.71 10^3/uL (1.8-7.7); Neutrophils % 27.2 %; Nucleated Red Blood Cells % 0 %; Platelet Count 199 10^3/cmm (157-399); Red Blood Count 3.89 10^6/uL (3.85-5.65); Red Cell Distribution Width 14.3 % (12.1-15.1); White Blood Count 6.29 10^3/uL (3.29-11.43)
[2024-03-04 13:40] LABS: Alanine Aminotransferase 17 U/L (0-41); Alkaline Phosphatase 198 U/L (40-130); Anion Gap 12.9 (5-19); Aspartate Amino Transferase 18 U/L (0-40); Blood Urea Nitrogen 16 mg/dL (8-23); Calcium 8.9 mg/dL (8.5-10.5); Carbon Dioxide 24 mmol/L (22-29); Chloride 105 mmol/L (98-107); Globulin 3.5 g/dL (1.3-4.6); Glomerular Filtration Rate 84.4 mL/min (90-130); Glucose 132 mg/dL (65-115); Osmolality Calculated 289 mOsm/kg (285-295); Potassium 3.9 mmol/L (3.5-5.1); Sodium 138 mmol/L (136-145); Total Bilirubin 0.4 mg/dL (0.15-1.2); Total Protein 7.5 g/dL (6.6-8.7)
== END 2024-03-19 23:59 | disposition home or self-care (01) ==
LOC: ONCMED 12:51
PROVIDERS: Nurse Practitioner Family; PCP Family Medicine; Visit Provider Internal Medicine Medical Oncology
DX: C90.00 Multiple myeloma not having achieved remission (principal)
CPT/HCPCS: 36415; 80053; 85025

== ENCOUNTER 2024-04-16 09:57 | Oncology outpatient (recurring) (ONCR) | payer MEDICARE, MEDICAID, SELFPAY ==
[2024-04-01 13:55] LABS: Basophils # 0.1 10^3/uL (0.0-0.1); Basophils % 2.2 %; Eosinophils # 0.2 10^3/uL (0.0-0.8); Eosinophils % 2.9 %; Hematocrit 39.9 % (37-53); Lymphocytes # 3.1 10^3/uL (0.8-4.8); Mean Corpuscular HGB Conc 33.6 g/dL (30-55); Mean Corpuscular Volume 101.3 fl (82-101); Mean Platelet Volume 9.3 fL (7.4-10.4); Monocytes # 0.6 10^3/uL (0.2-0.9); Monocytes % 9.5 %; Neutrophils # 1.96 10^3/uL (1.8-7.7); Neutrophils % 33.2 %; Nucleated Red Blood Cells % 0 %; Platelet Count 207 10^3/cmm (157-399); Red Blood Count 3.94 10^6/uL (3.85-5.65); Red Cell Distribution Width 13.7 % (12.1-15.1)
[2024-04-01 14:19] LABS: Immunoglobulin IGA 414 mg/dL (70-400); Immunoglobulin IGG 1490 mg/dL (700-1600)
[2024-04-01 14:20] LABS: Immunoglobulin IGM < 25 mg/dL (40-230)
[2024-04-02 08:49] LABS: PROTEIN, TOTAL 7.2 g/dL (6.1-8.1)
[2024-04-02 12:04] LABS: KAPPA/LAMBDA LIGHT CHAINS FREE 1.37 (0.26-1.65); LAMBDA LIGHT CHAIN, FREE, SERU 37.1 mg/L (5.7-26.3)
[2024-04-02 12:39] LABS: ALBUMIN 3.6 g/dL (3.8-4.8); ALPHA 1 GLOBULIN 0.3 g/dL (0.2-0.3); ALPHA 2 GLOBULIN 0.8 g/dL (0.5-0.9); BETA 1 GLOBULIN 0.5 g/dL (0.4-0.6); BETA 2 GLOBULIN 0.5 g/dL (0.2-0.5); GAMMA GLOBULIN 1.5 g/dL (0.8-1.7)
[2024-04-11 07:20] LABS: CLL Prognostic Panel (BBPL) See Report
== END 2024-04-19 23:59 | disposition home or self-care (01) ==
PROVIDERS: Nurse Practitioner Family; PCP Family Medicine; Visit Provider Internal Medicine Medical Oncology
DX: C90.00 Multiple myeloma not having achieved remission (principal)
CPT/HCPCS: 36415; 81263; 82232; 82784; 83883; 84155; 84165; 85025; 88185; 88264; 88271; 88367; 88374; 99214

== ENCOUNTER 2024-04-29 12:46 | Oncology outpatient (recurring) (ONCR) | payer MEDICARE, MEDICAID, SELFPAY ==
[2024-04-29 13:04] LABS: Basophils # 0.2 10^3/uL (0.0-0.1); Basophils % 2.6 %; Eosinophils # 0.3 10^3/uL (0.0-0.8); Hematocrit 39.6 % (37-53); Lymphocytes # 3.8 10^3/uL (0.8-4.8); Lymphocytes % 58.5 %; Mean Corpuscular HGB Conc 33.6 g/dL (30-55); Mean Corpuscular Hemoglobin 34.3 pg (27-33); Mean Corpuscular Volume 102.1 fl (82-101); Mean Platelet Volume 8.9 fL (7.4-10.4); Monocytes # 0.6 10^3/uL (0.2-0.9); Monocytes % 8.8 %; Neutrophils # 1.69 10^3/uL (1.8-7.7); Neutrophils % 25.9 %; Nucleated Red Blood Cells % 0 %; Platelet Count 194 10^3/cmm (157-399); Red Blood Count 3.88 10^6/uL (3.85-5.65); Red Cell Distribution Width 13.8 % (12.1-15.1); White Blood Count 6.51 10^3/uL (3.29-11.43)
== END 2024-05-19 23:59 | disposition home or self-care (01) ==
LOC: ONCMED 12:46
PROVIDERS: PCP Family Medicine; Visit Provider Internal Medicine Medical Oncology
DX: C90.00 Multiple myeloma not having achieved remission (principal)
CPT/HCPCS: 36415; 85025

== ENCOUNTER 2024-05-27 12:45 | Oncology outpatient (recurring) (ONCR) | payer MEDICARE, MEDICAID, SELFPAY ==
[2024-05-27 12:59] LABS: Basophils # 0.1 10^3/uL (0.0-0.1); Basophils % 1.7 %; Eosinophils # 0.2 10^3/uL (0.0-0.8); Eosinophils % 3.8 %; Hematocrit 38.5 % (37-53); Lymphocytes # 3.8 10^3/uL (0.8-4.8); Mean Corpuscular HGB Conc 33.5 g/dL (30-55); Mean Corpuscular Hemoglobin 34.6 pg (27-33); Mean Corpuscular Volume 103.2 fl (82-101); Mean Platelet Volume 9.4 fL (7.4-10.4); Monocytes # 0.6 10^3/uL (0.2-0.9); Monocytes % 8.9 %; Neutrophils # 1.62 10^3/uL (1.8-7.7); Neutrophils % 25.4 %; Nucleated Red Blood Cells % 0 %; Platelet Count 191 10^3/cmm (157-399); Red Blood Count 3.73 10^6/uL (3.85-5.65); Red Cell Distribution Width 13.8 % (12.1-15.1); White Blood Count 6.37 10^3/uL (3.29-11.43)
== END 2024-06-19 23:59 | disposition home or self-care (01) ==
LOC: ONCMED 12:45
PROVIDERS: PCP Family Medicine; Visit Provider Internal Medicine Medical Oncology
DX: C90.00 Multiple myeloma not having achieved remission (principal)
CPT/HCPCS: 36415; 85025

== ENCOUNTER 2024-07-12 08:02 | Oncology outpatient (recurring) (ONCR) | payer MEDICARE, MEDICAID, SELFPAY ==
[2024-06-24 13:22] LABS: Basophils # 0.1 10^3/uL (0.0-0.1); Basophils % 1.6 %; Eosinophils # 0.2 10^3/uL (0.0-0.8); Eosinophils % 3.4 %; Hematocrit 37.8 % (37-53); Lymphocytes # 3.5 10^3/uL (0.8-4.8); Lymphocytes % 56.4 %; Mean Corpuscular HGB Conc 33.1 g/dL (30-55); Mean Corpuscular Hemoglobin 34.1 pg (27-33); Mean Platelet Volume 9.5 fL (7.4-10.4); Monocytes # 0.5 10^3/uL (0.2-0.9); Monocytes % 8.5 %; Neutrophils # 1.88 10^3/uL (1.8-7.7); Neutrophils % 29.9 %; Nucleated Red Blood Cells % 0 %; Platelet Count 206 10^3/cmm (157-399); Red Blood Count 3.67 10^6/uL (3.85-5.65); Red Cell Distribution Width 13.7 % (12.1-15.1); White Blood Count 6.26 10^3/uL (3.29-11.43)
[2024-06-24 13:43] LABS: Alanine Aminotransferase 15 U/L (0-41); Albumin Level 3.9 g/dL (3.5-5.2); Alkaline Phosphatase 174 U/L (40-130); Anion Gap 15.3 (5-19); Aspartate Amino Transferase 15 U/L (0-40); Blood Urea Nitrogen 16 mg/dL (8-23); Calcium 8.9 mg/dL (8.5-10.5); Carbon Dioxide 23 mmol/L (22-29); Chloride 102 mmol/L (98-107); Globulin 3.5 g/dL (1.3-4.6); Glomerular Filtration Rate 84.4 mL/min (90-130); Glucose 96 mg/dL (65-115); Immunoglobulin IGA 423 mg/dL (70-400); Immunoglobulin IGG 1412 mg/dL (700-1600); Osmolality Calculated 283 mOsm/kg (285-295); Potassium 4.3 mmol/L (3.5-5.1); Sodium 136 mmol/L (136-145); Total Bilirubin 0.4 mg/dL (0.15-1.2); Total Protein 7.4 g/dL (6.6-8.7)
[2024-06-24 13:45] LABS: Immunoglobulin IGM < 25 mg/dL (40-230)
[2024-06-25 13:00] LABS: ALBUMIN 3.6 g/dL (3.8-4.8); ALPHA 1 GLOBULIN 0.3 g/dL (0.2-0.3); ALPHA 2 GLOBULIN 0.8 g/dL (0.5-0.9); BETA 1 GLOBULIN 0.4 g/dL (0.4-0.6); BETA 2 GLOBULIN 0.5 g/dL (0.2-0.5); GAMMA GLOBULIN 1.4 g/dL (0.8-1.7)
[2024-06-26 12:58] LABS: KAPPA LIGHT CHAIN, FREE, SERUM 50.5 mg/L (3.3-19.4); KAPPA/LAMBDA LIGHT CHAINS FREE 1.51 (0.26-1.65); LAMBDA LIGHT CHAIN, FREE, SERU 33.5 mg/L (5.7-26.3)
[2024-07-02 11:45] LABS: CREATININE, 24 HOUR URINE 1.43 g/24 h (0.50-2.15); PROTEIN, TOTAL, 24 HR UR 228 mg/24 h (<150); Protein/Creatinine Ratio 160 mg/g creat (<100)
[2024-07-04 12:58] LABS: ALBUMIN 100 %; ALPHA-1-GLOBULINS 0 %; ALPHA-2-GLOBULINS 0 %; BETA GLOBULINS 0 %; GAMMA GLOBULINS 0 %
== END 2024-07-20 23:59 | disposition home or self-care (01) ==
PROVIDERS: PCP Family Medicine; Visit Provider Internal Medicine Medical Oncology
DX: C90.00 Multiple myeloma not having achieved remission (principal); Z87.891 Personal history of nicotine dependence; Z79.899 Other long term (current) drug therapy
CPT/HCPCS: 36415; 80053; 82570; 82784; 83883; 84155; 84165; 84166; 85025; 86335; 99214

== ENCOUNTER 2024-08-19 10:15 | Oncology outpatient (recurring) (ONCR) | payer MEDICARE, MEDICAID, SELFPAY ==
[2024-07-23 10:24] LABS: Basophils # 0.1 10^3/uL (0.0-0.1); Basophils % 2.3 %; Eosinophils # 0.1 10^3/uL (0.0-0.8); Eosinophils % 2.3 %; Hematocrit 39.5 % (37-53); Lymphocytes # 2.4 10^3/uL (0.8-4.8); Mean Corpuscular HGB Conc 33.7 g/dL (30-55); Mean Corpuscular Hemoglobin 34.4 pg (27-33); Mean Corpuscular Volume 102.1 fl (82-101); Mean Platelet Volume 9.5 fL (7.4-10.4); Monocytes # 0.5 10^3/uL (0.2-0.9); Monocytes % 10.4 %; Neutrophils # 1.94 10^3/uL (1.8-7.7); Nucleated Red Blood Cells % 0 %; Platelet Count 199 10^3/cmm (157-399); Red Blood Count 3.87 10^6/uL (3.85-5.65); Red Cell Distribution Width 13.7 % (12.1-15.1); White Blood Count 5.11 10^3/uL (3.29-11.43)
[2024-07-23 10:46] LABS: Alanine Aminotransferase 15 U/L (0-41); Albumin Level 3.9 g/dL (3.5-5.2); Alkaline Phosphatase 173 U/L (40-130); Anion Gap 15.8 (5-19); Aspartate Amino Transferase 19 U/L (0-40); Blood Urea Nitrogen 15 mg/dL (8-23); Calcium 8.6 mg/dL (8.5-10.5); Carbon Dioxide 23 mmol/L (22-29); Chloride 107 mmol/L (98-107); Globulin 3.4 g/dL (1.3-4.6); Glomerular Filtration Rate 74.8 mL/min (90-130); Glucose 107 mg/dL (65-115); Osmolality Calculated 293 mOsm/kg (285-295); Potassium 4.8 mmol/L (3.5-5.1); Sodium 141 mmol/L (136-145); Total Bilirubin 0.4 mg/dL (0.15-1.2); Total Protein 7.3 g/dL (6.6-8.7)
[2024-08-19 10:32] LABS: Basophils # 0.1 10^3/uL (0.0-0.1); Basophils % 2.2 %; Eosinophils # 0.2 10^3/uL (0.0-0.8); Eosinophils % 3.1 %; Hematocrit 39.4 % (37-53); Lymphocytes # 3.1 10^3/uL (0.8-4.8); Lymphocytes % 56.6 %; Mean Corpuscular HGB Conc 33.2 g/dL (30-55); Mean Corpuscular Hemoglobin 33.9 pg (27-33); Mean Corpuscular Volume 102.1 fl (82-101); Mean Platelet Volume 9.1 fL (7.4-10.4); Monocytes # 0.5 10^3/uL (0.2-0.9); Monocytes % 8.9 %; Neutrophils # 1.61 10^3/uL (1.8-7.7); Nucleated Red Blood Cells % 0 %; Platelet Count 203 10^3/cmm (157-399); Red Blood Count 3.86 10^6/uL (3.85-5.65); Red Cell Distribution Width 13.3 % (12.1-15.1); White Blood Count 5.53 10^3/uL (3.29-11.43)
[2024-08-19 10:49] LABS: Alanine Aminotransferase 14 U/L (0-41); Albumin Level 3.9 g/dL (3.5-5.2); Alkaline Phosphatase 177 U/L (40-130); Anion Gap 12.3 (5-19); Aspartate Amino Transferase 20 U/L (0-40); Blood Urea Nitrogen 21 mg/dL (8-23); Calcium 8.7 mg/dL (8.5-10.5); Carbon Dioxide 23 mmol/L (22-29); Chloride 104 mmol/L (98-107); Globulin 3.6 g/dL (1.3-4.6); Glomerular Filtration Rate 84.4 mL/min (90-130); Glucose 105 mg/dL (65-115); Osmolality Calculated 283 mOsm/kg (285-295); Potassium 4.3 mmol/L (3.5-5.1); Sodium 135 mmol/L (136-145); Total Bilirubin 0.4 mg/dL (0.15-1.2); Total Protein 7.5 g/dL (6.6-8.7)
== END 2024-08-19 23:59 | disposition home or self-care (01) ==
PROVIDERS: Nurse Practitioner Family; PCP Family Medicine Adult Medicine; Visit Provider Internal Medicine Hematology & Oncology
DX: C90.01 Multiple myeloma in remission (principal); Z53.9 Procedure and treatment not carried out, unspecified reason
CPT/HCPCS: 36415; 80053; 85025

== ENCOUNTER 2024-09-16 09:35 | Oncology outpatient (recurring) (ONCR) | payer MEDICARE, MEDICAID, SELFPAY ==
[2024-09-16 10:27] LABS: Basophils # 0.1 10^3/uL (0.0-0.1); Basophils % 2.7 %; Eosinophils # 0.1 10^3/uL (0.0-0.8); Eosinophils % 2.7 %; Hematocrit 40.2 % (37-53); Lymphocytes # 2.3 10^3/uL (0.8-4.8); Lymphocytes % 50.9 %; Mean Corpuscular HGB Conc 32.8 g/dL (30-55); Mean Corpuscular Volume 103.6 fl (82-101); Mean Platelet Volume 9.2 fL (7.4-10.4); Monocytes # 0.4 10^3/uL (0.2-0.9); Monocytes % 8.1 %; Neutrophils # 1.56 10^3/uL (1.8-7.7); Neutrophils % 35.4 %; Nucleated Red Blood Cells % 0 %; Platelet Count 242 10^3/cmm (157-399); Red Blood Count 3.88 10^6/uL (3.85-5.65); Red Cell Distribution Width 13.6 % (12.1-15.1); White Blood Count 4.42 10^3/uL (3.29-11.43)
[2024-09-16 10:53] LABS: Alanine Aminotransferase 15 U/L (0-41); Albumin Level 3.9 g/dL (3.5-5.2); Alkaline Phosphatase 170 U/L (40-130); Anion Gap 11.8 (5-19); Aspartate Amino Transferase 14 U/L (0-40); Blood Urea Nitrogen 15 mg/dL (8-23); Calcium 8.6 mg/dL (8.5-10.5); Carbon Dioxide 26 mmol/L (22-29); Chloride 105 mmol/L (98-107); Globulin 3.7 g/dL (1.3-4.6); Glomerular Filtration Rate 84.4 mL/min (90-130); Glucose 100 mg/dL (65-115); Osmolality Calculated 287 mOsm/kg (285-295); Potassium 4.8 mmol/L (3.5-5.1); Sodium 138 mmol/L (136-145); Total Bilirubin 0.3 mg/dL (0.15-1.2); Total Protein 7.6 g/dL (6.6-8.7)
== END 2024-09-19 23:59 | disposition home or self-care (01) ==
LOC: ONCMED 09:36
PROVIDERS: Nurse Practitioner Family; PCP Family Medicine Adult Medicine; Visit Provider Internal Medicine Hematology & Oncology
DX: C90.00 Multiple myeloma not having achieved remission (principal)
CPT/HCPCS: 36415; 80053; 85025

== ENCOUNTER 2024-10-16 08:44 | Oncology outpatient (recurring) (ONCR) | payer MEDICARE, MEDICAID, SELFPAY ==
[2024-10-14 10:16] LABS: Basophils # 0.1 10^3/uL (0.0-0.1); Basophils % 2.1 %; Eosinophils # 0.2 10^3/uL (0.0-0.8); Eosinophils % 3.8 %; Hematocrit 38.1 % (37-53); Lymphocytes # 2.3 10^3/uL (0.8-4.8); Lymphocytes % 47.4 %; Mean Corpuscular HGB Conc 32.8 g/dL (30-55); Mean Corpuscular Hemoglobin 33.5 pg (27-33); Mean Corpuscular Volume 102.1 fl (82-101); Mean Platelet Volume 9.4 fL (7.4-10.4); Monocytes # 0.5 10^3/uL (0.2-0.9); Monocytes % 11.2 %; Neutrophils # 1.68 10^3/uL (1.8-7.7); Neutrophils % 35.3 %; Nucleated Red Blood Cells % 0 %; Platelet Count 207 10^3/cmm (157-399); Red Blood Count 3.73 10^6/uL (3.85-5.65); Red Cell Distribution Width 14.3 % (12.1-15.1); White Blood Count 4.75 10^3/uL (3.29-11.43)
[2024-10-14 10:39] LABS: Alanine Aminotransferase 14 U/L (0-41); Albumin Level 3.9 g/dL (3.5-5.2); Alkaline Phosphatase 143 U/L (40-130); Anion Gap 13.4 (5-19); Aspartate Amino Transferase 16 U/L (0-40); Blood Urea Nitrogen 17 mg/dL (8-23); Calcium 8.6 mg/dL (8.5-10.5); Carbon Dioxide 24 mmol/L (22-29); Chloride 102 mmol/L (98-107); Globulin 3.2 g/dL (1.3-4.6); Glomerular Filtration Rate 84.2 mL/min (90-130); Glucose 98 mg/dL (65-115); Immunoglobulin IGA 463 mg/dL (70-400); Immunoglobulin IGG 1337 mg/dL (700-1600); Osmolality Calculated 282 mOsm/kg (285-295); Potassium 4.4 mmol/L (3.5-5.1); Sodium 135 mmol/L (136-145); Total Bilirubin 0.5 mg/dL (0.15-1.2); Total Protein 7.1 g/dL (6.6-8.7)
[2024-10-14 10:45] LABS: Immunoglobulin IGM < 25 mg/dL (40-230)
[2024-10-15 05:28] LABS: PROTEIN, TOTAL 7.1 g/dL (6.1-8.1)
[2024-10-15 14:14] LABS: ALBUMIN 3.6 g/dL (3.8-4.8); ALPHA 1 GLOBULIN 0.3 g/dL (0.2-0.3); ALPHA 2 GLOBULIN 0.8 g/dL (0.5-0.9); BETA 1 GLOBULIN 0.5 g/dL (0.4-0.6); BETA 2 GLOBULIN 0.5 g/dL (0.2-0.5); GAMMA GLOBULIN 1.4 g/dL (0.8-1.7)
[2024-10-16 11:40] LABS: KAPPA LIGHT CHAIN, FREE, SERUM 52.6 mg/L (3.3-19.4); KAPPA/LAMBDA LIGHT CHAINS FREE 1.49 (0.26-1.65); LAMBDA LIGHT CHAIN, FREE, SERU 35.4 mg/L (5.7-26.3)
[2024-10-18 22:50] LABS: Immunofixation Serum Normal pattern.
[2024-10-19 02:09] LABS: CREATININE, 24 HOUR URINE 1.51 g/24 h (0.50-2.15); PROTEIN, TOTAL, 24 HR UR 330 mg/24 h (<150); Protein/Creatinine Ratio 0.218 (<0.100); Protein/Creatinine Ratio 218 mg/g creat (<100)
[2024-10-22 16:00] LABS: ALBUMIN 100 %; ALPHA-1-GLOBULINS 0 %; ALPHA-2-GLOBULINS 0 %; BETA GLOBULINS 0 %; GAMMA GLOBULINS 0 %
== END 2024-10-19 23:59 | disposition home or self-care (01) ==
PROVIDERS: Nurse Practitioner Family; PCP Family Medicine Adult Medicine; Visit Provider Internal Medicine Hematology & Oncology
DX: C90.00 Multiple myeloma not having achieved remission (principal)
CPT/HCPCS: 36415; 80053; 82784; 83883; 84155; 84156; 84165; 84166; 85025; 86334

== ENCOUNTER → 2024-10-28 10:40 | Outpatient (BNVA) | payer MEDICARE, MEDICAID, SELFPAY | PROVIDERS: PCP Family Medicine Adult Medicine; Visit Provider Nurse Practitioner Family | DX: C90.01 Multiple myeloma in remission (principal) | CPT/HCPCS: 99214 ==

== ENCOUNTER 2024-11-11 08:40 | Oncology outpatient (recurring) (ONCR) | payer MEDICARE, MEDICAID, SELFPAY ==
[2024-11-11 09:40] LABS: Basophils # 0.1 10^3/uL (0.0-0.1); Basophils % 2.4 %; Eosinophils # 0.2 10^3/uL (0.0-0.8); Eosinophils % 3.6 %; Hematocrit 39.9 % (37-53); Lymphocytes # 2.5 10^3/uL (0.8-4.8); Lymphocytes % 45.6 %; Mean Corpuscular HGB Conc 33.1 g/dL (30-55); Mean Corpuscular Hemoglobin 34.4 pg (27-33); Mean Corpuscular Volume 103.9 fl (82-101); Mean Platelet Volume 8.9 fL (7.4-10.4); Monocytes # 0.6 10^3/uL (0.2-0.9); Monocytes % 10.6 %; Neutrophils # 2.05 10^3/uL (1.8-7.7); Neutrophils % 37.4 %; Nucleated Red Blood Cells % 0 %; Platelet Count 183 10^3/cmm (157-399); Red Blood Count 3.84 10^6/uL (3.85-5.65); White Blood Count 5.48 10^3/uL (3.29-11.43)
[2024-11-11 10:00] LABS: Alanine Aminotransferase 11 U/L (0-41); Albumin Level 3.9 g/dL (3.5-5.2); Alkaline Phosphatase 166 U/L (40-130); Anion Gap 12.1 (5-19); Aspartate Amino Transferase 15 U/L (0-40); Blood Urea Nitrogen 15 mg/dL (8-23); Calcium 9.1 mg/dL (8.5-10.5); Carbon Dioxide 25 mmol/L (22-29); Chloride 110 mmol/L (98-107); Creatinine Clr Calc Pharmacy 88.5969; Globulin 3.6 g/dL (1.3-4.6); Glomerular Filtration Rate 74.5 mL/min (90-130); Glucose 98 mg/dL (65-115); Osmolality Calculated 295 mOsm/kg (285-295); Potassium 5.1 mmol/L (3.5-5.1); Sodium 142 mmol/L (136-145); Total Bilirubin 0.4 mg/dL (0.15-1.2); Total Protein 7.5 g/dL (6.6-8.7)
== END 2024-11-19 23:59 | disposition home or self-care (01) ==
PROVIDERS: Nurse Practitioner Family; PCP Family Medicine Adult Medicine; Visit Provider Internal Medicine Medical Oncology
DX: C90.01 Multiple myeloma in remission (principal)
CPT/HCPCS: 36415; 80053; 85025

== ENCOUNTER 2024-12-09 09:07 | Oncology outpatient (recurring) (ONCR) | payer MEDICARE, MEDICAID, SELFPAY ==
[2024-12-09 09:40] LABS: Basophils # 0.1 10^3/uL (0.0-0.1); Basophils % 2.2 %; Eosinophils # 0.2 10^3/uL (0.0-0.8); Eosinophils % 3.7 %; Hematocrit 40.3 % (37-53); Lymphocytes # 2.4 10^3/uL (0.8-4.8); Lymphocytes % 46.5 %; Mean Corpuscular HGB Conc 33.3 g/dL (30-55); Mean Corpuscular Volume 102.3 fl (82-101); Mean Platelet Volume 9.2 fL (7.4-10.4); Monocytes # 0.5 10^3/uL (0.2-0.9); Monocytes % 9.1 %; Neutrophils # 1.95 10^3/uL (1.8-7.7); Neutrophils % 38.3 %; Nucleated Red Blood Cells % 0 %; Platelet Count 219 10^3/cmm (157-399); Red Blood Count 3.94 10^6/uL (3.85-5.65); Red Cell Distribution Width 13.4 % (12.1-15.1); White Blood Count 5.08 10^3/uL (3.29-11.43)
[2024-12-09 09:59] LABS: Albumin Level 3.9 g/dL (3.5-5.2); Alkaline Phosphatase 163 U/L (40-130); Anion Gap 14.3 (5-19); Aspartate Amino Transferase 15 U/L (0-40); Blood Urea Nitrogen 18 mg/dL (8-23); Calcium 9.1 mg/dL (8.5-10.5); Carbon Dioxide 25 mmol/L (22-29); Chloride 103 mmol/L (98-107); Globulin 3.5 g/dL (1.3-4.6); Glomerular Filtration Rate 74.5 mL/min (90-130); Glucose 106 mg/dL (65-115); Osmolality Calculated 288 mOsm/kg (285-295); Potassium 4.3 mmol/L (3.5-5.1); Sodium 138 mmol/L (136-145); Total Bilirubin 0.3 mg/dL (0.15-1.2); Total Protein 7.4 g/dL (6.6-8.7)
[2024-12-09 10:09] LABS: Alanine Aminotransferase 13 U/L (0-41)
== END 2024-12-20 23:59 | disposition home or self-care (01) ==
PROVIDERS: Nurse Practitioner Family; PCP Family Medicine Adult Medicine; Visit Provider Internal Medicine Medical Oncology
DX: C90.01 Multiple myeloma in remission (principal)
CPT/HCPCS: 36415; 80053; 85025

== ENCOUNTER 2025-01-06 08:57 | Oncology outpatient (recurring) (ONCR) | payer MEDICARE, MEDICAID, SELFPAY ==
[2025-01-06 09:20] LABS: Basophils # 0.1 10^3/uL (0.0-0.1); Basophils % 1.6 %; Eosinophils # 0.2 10^3/uL (0.0-0.8); Eosinophils % 3.1 %; Lymphocytes # 2.8 10^3/uL (0.8-4.8); Lymphocytes % 50.8 %; Mean Corpuscular HGB Conc 33.7 g/dL (30-55); Mean Corpuscular Hemoglobin 34.8 pg (27-33); Mean Corpuscular Volume 103.5 fl (82-101); Monocytes # 0.6 10^3/uL (0.2-0.9); Monocytes % 10.8 %; Neutrophils # 1.84 10^3/uL (1.8-7.7); Neutrophils % 33.3 %; Nucleated Red Blood Cells % 0 %; Platelet Count 200 10^3/cmm (157-399); Red Blood Count 3.96 10^6/uL (3.85-5.65); Red Cell Distribution Width 13.7 % (12.1-15.1); White Blood Count 5.53 10^3/uL (3.29-11.43)
[2025-01-06 09:39] LABS: Alanine Aminotransferase 12 U/L (0-41); Albumin Level 4.1 g/dL (3.5-5.2); Alkaline Phosphatase 174 U/L (40-130); Anion Gap 13.1 (5-19); Aspartate Amino Transferase 13 U/L (0-40); Blood Urea Nitrogen 16 mg/dL (8-23); Calcium 8.8 mg/dL (8.5-10.5); Carbon Dioxide 25 mmol/L (22-29); Chloride 105 mmol/L (98-107); Globulin 3.2 g/dL (1.3-4.6); Glomerular Filtration Rate 74.5 mL/min (90-130); Glucose 101 mg/dL (65-115); Osmolality Calculated 289 mOsm/kg (285-295); Potassium 4.1 mmol/L (3.5-5.1); Sodium 139 mmol/L (136-145); Total Bilirubin 0.5 mg/dL (0.15-1.2); Total Protein 7.3 g/dL (6.6-8.7)
== END 2025-01-17 23:59 | disposition home or self-care (01) ==
LOC: ONCMED 08:57
PROVIDERS: Nurse Practitioner Family; PCP Family Medicine Adult Medicine; Visit Provider Internal Medicine Medical Oncology
DX: C90.01 Multiple myeloma in remission (principal)
CPT/HCPCS: 36415; 80053; 85025

== ENCOUNTER 2025-01-20 09:19 | Oncology outpatient (recurring) (ONCR) | payer MEDICARE, MEDICAID, SELFPAY | END 2025-02-17 23:59 | disposition home or self-care (01) | PROVIDERS: PCP Family Medicine Adult Medicine; Visit Provider Internal Medicine Medical Oncology | DX: C90.01 Multiple myeloma in remission (principal); Z87.891 Personal history of nicotine dependence; Z79.899 Other long term (current) drug therapy; Z94.84 Stem cells transplant status | CPT/HCPCS: 99214 ==

== ENCOUNTER 2025-03-10 07:42 | Oncology outpatient (recurring) (ONCR) | payer MEDICARE, MEDICAID, SELFPAY ==
[2025-03-03 09:08] LABS: Basophils # 0.1 10^3/uL (0.0-0.1); Basophils % 2.3 %; Eosinophils # 0.2 10^3/uL (0.0-0.8); Eosinophils % 3.3 %; Lymphocytes # 2.7 10^3/uL (0.8-4.8); Lymphocytes % 47.6 %; Mean Corpuscular HGB Conc 32.5 g/dL (30-55); Mean Corpuscular Hemoglobin 33.6 pg (27-33); Mean Corpuscular Volume 103.4 fl (82-101); Mean Platelet Volume 9.4 fL (7.4-10.4); Monocytes # 0.6 10^3/uL (0.2-0.9); Monocytes % 10.7 %; Neutrophils # 2.04 10^3/uL (1.8-7.7); Neutrophils % 35.7 %; Nucleated Red Blood Cells % 0 %; Platelet Count 192 10^3/cmm (157-399); Red Blood Count 3.87 10^6/uL (3.85-5.65); Red Cell Distribution Width 13.8 % (12.1-15.1); White Blood Count 5.71 10^3/uL (3.29-11.43)
[2025-03-03 09:39] LABS: Prostate Specific Antigen 0.567 ng/mL (0-4)
[2025-03-03 11:04] LABS: Alanine Aminotransferase 13 U/L (0-41); Alkaline Phosphatase 147 U/L (40-130); Anion Gap 13.1 (5-19); Aspartate Amino Transferase 16 U/L (0-40); Blood Urea Nitrogen 14 mg/dL (8-23); Calcium 8.8 mg/dL (8.5-10.5); Carbon Dioxide 23 mmol/L (22-29); Chloride 106 mmol/L (98-107); Cholesterol 112 mg/dL (0-200); Globulin 3.4 g/dL (1.3-4.6); Glomerular Filtration Rate 84.2 mL/min (90-130); Glucose 86 mg/dL (65-115); HDL Cholesterol 35 mg/dL (60-100); LDL Cholesterol Calculated 56 mg/dL (50-129); Osmolality Calculated 286 mOsm/kg (285-295); Potassium 4.1 mmol/L (3.5-5.1); Sodium 138 mmol/L (136-145); Total Bilirubin 0.3 mg/dL (0.15-1.2); Total Protein 7.4 g/dL (6.6-8.7); Triglycerides 105 mg/dL (0-150)
[2025-03-04 06:35] LABS: PROTEIN, TOTAL 7.1 g/dL (6.1-8.1)
[2025-03-04 12:04] LABS: KAPPA/LAMBDA LIGHT CHAINS FREE 1.25 (0.26-1.65); LAMBDA LIGHT CHAIN, FREE, SERU 36.1 mg/L (5.7-26.3)
[2025-03-04 15:49] LABS: ALBUMIN 3.6 g/dL (3.8-4.8); ALPHA 1 GLOBULIN 0.3 g/dL (0.2-0.3); ALPHA 2 GLOBULIN 0.8 g/dL (0.5-0.9); BETA 1 GLOBULIN 0.5 g/dL (0.4-0.6); BETA 2 GLOBULIN 0.5 g/dL (0.2-0.5); GAMMA GLOBULIN 1.4 g/dL (0.8-1.7)
== END 2025-03-19 23:59 | disposition home or self-care (01) ==
PROVIDERS: PCP Family Medicine; Visit Provider Internal Medicine Medical Oncology
DX: C90.01 Multiple myeloma in remission (principal); R03.0 Elevated blood-pressure reading, without diagnosis of hypertension; Z87.891 Personal history of nicotine dependence; Z94.84 Stem cells transplant status; Z79.899 Other long term (current) drug therapy
CPT/HCPCS: 36415; 80053; 80061; 83883; 84153; 84155; 84165; 85025; 99214

== ENCOUNTER 2025-05-05 08:56 | Oncology outpatient (recurring) (ONCR) | payer MEDICARE, MEDICAID, SELFPAY ==
[2025-04-28 09:47] LABS: Basophils # 0.1 10^3/uL (0.0-0.1); Eosinophils # 0.2 10^3/uL (0.0-0.8); Eosinophils % 3.7 %; Hematocrit 40.9 % (37-53); Lymphocytes # 2.7 10^3/uL (0.8-4.8); Lymphocytes % 49.6 %; Mean Corpuscular HGB Conc 33.7 g/dL (30-55); Mean Corpuscular Hemoglobin 34.9 pg (27-33); Mean Corpuscular Volume 103.5 fl (82-101); Mean Platelet Volume 9.6 fL (7.4-10.4); Monocytes # 0.5 10^3/uL (0.2-0.9); Monocytes % 9.8 %; Neutrophils # 1.86 10^3/uL (1.8-7.7); Neutrophils % 34.5 %; Nucleated Red Blood Cells % 0 %; Platelet Count 201 10^3/cmm (157-399); Red Blood Count 3.95 10^6/uL (3.85-5.65); Red Cell Distribution Width 13.5 % (12.1-15.1)
[2025-04-28 10:03] LABS: Alanine Aminotransferase 14 U/L (0-41); Alkaline Phosphatase 167 U/L (40-130); Anion Gap 14.9 (5-19); Aspartate Amino Transferase 15 U/L (0-40); Blood Urea Nitrogen 20 mg/dL (8-23); Calcium 8.9 mg/dL (8.5-10.5); Carbon Dioxide 24 mmol/L (22-29); Chloride 108 mmol/L (98-107); Globulin 3.4 g/dL (1.3-4.6); Glomerular Filtration Rate 74.5 mL/min (90-130); Glucose 101 mg/dL (65-115); Osmolality Calculated 297 mOsm/kg (285-295); Potassium 4.9 mmol/L (3.5-5.1); Sodium 142 mmol/L (136-145); Total Bilirubin 0.3 mg/dL (0.15-1.2); Total Protein 7.4 g/dL (6.6-8.7)
[2025-04-29 06:47] LABS: PROTEIN, TOTAL 7.1 g/dL (6.1-8.1)
[2025-04-29 13:20] LABS: KAPPA LIGHT CHAIN, FREE, SERUM 45.7 mg/L (3.3-19.4); KAPPA/LAMBDA LIGHT CHAINS FREE 1.34 (0.26-1.65)
[2025-04-30 08:54] LABS: ABNORMAL PROTEIN BAND 1 0.1 g/dL (NONE DETECTED); ALBUMIN 3.6 g/dL (3.8-4.8); ALPHA 1 GLOBULIN 0.4 g/dL (0.2-0.3); ALPHA 2 GLOBULIN 0.8 g/dL (0.5-0.9); BETA 1 GLOBULIN 0.5 g/dL (0.4-0.6); BETA 2 GLOBULIN 0.5 g/dL (0.2-0.5); GAMMA GLOBULIN 1.4 g/dL (0.8-1.7)
== END 2025-05-19 23:59 | disposition home or self-care (01) ==
PROVIDERS: Nurse Practitioner Family; PCP Family Medicine; Visit Provider Internal Medicine Medical Oncology
DX: C90.01 Multiple myeloma in remission (principal); R03.0 Elevated blood-pressure reading, without diagnosis of hypertension; Z87.891 Personal history of nicotine dependence; Z94.84 Stem cells transplant status; Z79.899 Other long term (current) drug therapy
CPT/HCPCS: 36415; 80053; 83883; 84155; 84165; 85025; 99214

== ENCOUNTER 2025-06-30 09:49 | Oncology outpatient (recurring) (ONCR) | payer MEDICARE, MEDICAID, SELFPAY ==
[2025-06-23 09:34] LABS: Hematocrit 38.8 % (37-53); Hemoglobin 12.90 g/dL (11.27-16.99); Mean Corpuscular HGB Conc 33.2 g/dL (30-55); Mean Corpuscular Hemoglobin 33.7 pg (27-33); Mean Corpuscular Volume 101.3 fl (82-101); Nucleated Red Blood Cells % 0 %; Platelet Count 191 10^3/cmm (157-399); Red Blood Count 3.83 10^6/uL (3.85-5.65); White Blood Count 4.89 10^3/uL (3.29-11.43)
[2025-06-23 09:48] LABS: Alanine Aminotransferase 11 U/L (0-41); Albumin Level 4.0 g/dL (3.5-5.2); Alkaline Phosphatase 173 U/L (40-130); Anion Gap 14.0 (5-19); Aspartate Amino Transferase 22 U/L (0-40); Blood Urea Nitrogen 10 mg/dL (8-23); Calcium 9.0 mg/dL (8.5-10.5); Carbon Dioxide 25 mmol/L (22-29); Chloride 109 mmol/L (98-107); Globulin 3.4 g/dL (1.3-4.6); Glucose 110 mg/dL (65-115); Osmolality Calculated 296 mOsm/kg (285-295); Potassium 5.0 mmol/L (3.5-5.1); Sodium 143 mmol/L (136-145); Total Protein 7.4 g/dL (6.6-8.7)
[2025-06-24 11:29] LABS: PROTEIN, TOTAL 6.9 g/dL (6.1-8.1)
[2025-06-25 14:16] LABS: KAPPA LIGHT CHAIN, FREE, SERUM 40.1 mg/L (3.3-19.4); KAPPA/LAMBDA LIGHT CHAINS FREE 1.33 (0.26-1.65); LAMBDA LIGHT CHAIN, FREE, SERU 30.1 mg/L (5.7-26.3)
[2025-06-26 09:10] LABS: ALPHA 1 GLOBULIN 0.4 g/dL (0.2-0.3); ALPHA 2 GLOBULIN 0.8 g/dL (0.5-0.9); BETA 1 GLOBULIN 0.4 g/dL (0.4-0.6); BETA 2 GLOBULIN 0.5 g/dL (0.2-0.5)
[2025-07-01 13:13] LABS: Protein/Creatinine Ratio 0.210 (<0.100); Protein/Creatinine Ratio 210 mg/g creat (<100)
[2025-07-03 10:24] LABS: ALPHA-1-GLOBULINS 0 %; ALPHA-2-GLOBULINS 0 %; BETA GLOBULINS 0 %; GAMMA GLOBULINS 0 %
== END 2025-07-20 23:59 | disposition home or self-care (01) ==
PROVIDERS: PCP Family Medicine; Visit Provider Internal Medicine Medical Oncology
DX: C90.01 Multiple myeloma in remission (principal); R03.0 Elevated blood-pressure reading, without diagnosis of hypertension; Z87.891 Personal history of nicotine dependence; Z94.84 Stem cells transplant status; Z79.899 Other long term (current) drug therapy
CPT/HCPCS: 36415; 80053; 82570; 83883; 84155; 84165; 84166; 85025; 86334; 86335; 99214

== ENCOUNTER 2025-08-18 07:48 | Oncology outpatient (recurring) (ONCR) | payer MEDICARE, MEDICAID, SELFPAY ==
[2025-08-18 08:24] LABS: Hematocrit 40.2 % (37-53); Hemoglobin 13.40 g/dL (11.27-16.99); Mean Corpuscular HGB Conc 33.3 g/dL (30-55); Mean Corpuscular Hemoglobin 34.4 pg (27-33); Mean Corpuscular Volume 103.1 fl (82-101); Nucleated Red Blood Cells % 0 %; Platelet Count 216 10^3/cmm (157-399); Red Blood Count 3.90 10^6/uL (3.85-5.65); White Blood Count 6.00 10^3/uL (3.29-11.43)
[2025-08-18 09:00] LABS: Alanine Aminotransferase 13 U/L (0-41); Albumin Level 4.0 g/dL (3.5-5.2); Alkaline Phosphatase 191 U/L (40-130); Anion Gap 14.4 (5-19); Aspartate Amino Transferase 17 U/L (0-40); Blood Urea Nitrogen 18 mg/dL (8-23); Calcium 9.0 mg/dL (8.5-10.5); Carbon Dioxide 24 mmol/L (22-29); Chloride 106 mmol/L (98-107); Globulin 3.7 g/dL (1.3-4.6); Glucose 110 mg/dL (65-115); Osmolality Calculated 293 mOsm/kg (285-295); Potassium 4.4 mmol/L (3.5-5.1); Sodium 140 mmol/L (136-145); Total Protein 7.7 g/dL (6.6-8.7)
[2025-08-19 05:29] LABS: PROTEIN, TOTAL 6.9 g/dL (6.1-8.1)
[2025-08-19 15:38] LABS: KAPPA LIGHT CHAIN, FREE, SERUM 46.7 mg/L (3.3-19.4); KAPPA/LAMBDA LIGHT CHAINS FREE 1.38 (0.26-1.65); LAMBDA LIGHT CHAIN, FREE, SERU 33.9 mg/L (5.7-26.3)
[2025-08-19 19:53] LABS: ALPHA 1 GLOBULIN 0.4 g/dL (0.2-0.3); ALPHA 2 GLOBULIN 0.8 g/dL (0.5-0.9); BETA 1 GLOBULIN 0.5 g/dL (0.4-0.6); BETA 2 GLOBULIN 0.5 g/dL (0.2-0.5)
== END 2025-08-19 23:59 | disposition home or self-care (01) ==
LOC: ONCMED 07:48
PROVIDERS: Nurse Practitioner Family; PCP Family Medicine; Visit Provider Internal Medicine Medical Oncology
DX: C90.01 Multiple myeloma in remission (principal)
CPT/HCPCS: 36415; 80053; 82784; 83883; 84155; 84165; 85025; 86334

== ENCOUNTER 2025-08-25 11:14 | Oncology outpatient (recurring) (ONCR) | payer MEDICARE, MEDICAID, SELFPAY | END 2025-08-25 23:59 | disposition home or self-care (01) | PROVIDERS: PCP Family Medicine; Visit Provider Internal Medicine Medical Oncology | DX: C90.01 Multiple myeloma in remission (principal); R03.0 Elevated blood-pressure reading, without diagnosis of hypertension; Z87.891 Personal history of nicotine dependence; Z94.84 Stem cells transplant status; Z79.899 Other long term (current) drug therapy | CPT/HCPCS: 99214 ==

== ENCOUNTER 2025-10-13 07:50 | Oncology outpatient (recurring) (ONCR) | payer MEDICARE, MEDICAID, SELFPAY ==
[2025-10-13 08:15] LABS: Hematocrit 39.5 % (37-53); Hemoglobin 13.10 g/dL (11.27-16.99); Mean Corpuscular HGB Conc 33.2 g/dL (30-55); Mean Corpuscular Hemoglobin 34.1 pg (27-33); Mean Corpuscular Volume 102.9 fl (82-101); Nucleated Red Blood Cells % 0 %; Platelet Count 197 10^3/cmm (157-399); Red Blood Count 3.84 10^6/uL (3.85-5.65); White Blood Count 4.81 10^3/uL (3.29-11.43)
[2025-10-13 08:39] LABS: Alanine Aminotransferase 15 U/L (0-41); Albumin Level 3.9 g/dL (3.5-5.2); Alkaline Phosphatase 158 U/L (40-130); Aspartate Amino Transferase 18 U/L (0-40); Blood Urea Nitrogen 20 mg/dL (8-23); Calcium 8.7 mg/dL (8.5-10.5); Carbon Dioxide 22 mmol/L (22-29); Chloride 104 mmol/L (98-107); Globulin 3.6 g/dL (1.3-4.6); Glucose 106 mg/dL (65-115); Osmolality Calculated 283 mOsm/kg (285-295); Sodium 135 mmol/L (136-145); Total Protein 7.5 g/dL (6.6-8.7)
[2025-10-13 08:41] LABS: Anion Gap 13.4 (5-19); Potassium 4.4 mmol/L (3.5-5.1)
[2025-10-14 08:00] LABS: PROTEIN, TOTAL 7.2 g/dL (6.1-8.1)
[2025-10-14 11:25] LABS: KAPPA LIGHT CHAIN, FREE, SERUM 48.6 mg/L (3.3-19.4); KAPPA/LAMBDA LIGHT CHAINS FREE 1.49 (0.26-1.65); LAMBDA LIGHT CHAIN, FREE, SERU 32.7 mg/L (5.7-26.3)
[2025-10-14 19:09] LABS: ALPHA 1 GLOBULIN 0.3 g/dL (0.2-0.3); ALPHA 2 GLOBULIN 0.8 g/dL (0.5-0.9); BETA 1 GLOBULIN 0.5 g/dL (0.4-0.6); BETA 2 GLOBULIN 0.5 g/dL (0.2-0.5)
== END 2025-10-19 23:59 | disposition home or self-care (01) ==
LOC: ONCMED 07:50
PROVIDERS: PCP Family Medicine; Visit Provider Internal Medicine Medical Oncology
DX: C90.01 Multiple myeloma in remission (principal)
CPT/HCPCS: 36415; 80053; 83883; 84155; 84165; 85025; 86334

== ENCOUNTER 2025-10-20 10:42 | Oncology outpatient (recurring) (ONCR) | payer MEDICARE, SELFPAY | END 2025-11-19 23:59 | disposition home or self-care (01) | PROVIDERS: PCP Family Medicine; Visit Provider Internal Medicine Medical Oncology | DX: C90.01 Multiple myeloma in remission (principal); R03.0 Elevated blood-pressure reading, without diagnosis of hypertension; Z87.891 Personal history of nicotine dependence; Z94.84 Stem cells transplant status; Z79.899 Other long term (current) drug therapy | CPT/HCPCS: 99213 ==